=== PATIENT | female | born 1945 | race Caucasian/White ===

== ENCOUNTER 2019-11-04 08:55 | Emergency (ER) | payer MEDICARE, OTHER, SELFPAY ==
--- NOTE | 2019-11-04 09:07 | ED_ITS ---
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 but those have not changed at all she has no other focal symptoms Onset (ago): hour(s) Location: head and neck Radiation: non-radiation Severity: moderate Quality: burning Pain Consistency: constant Relieving factors: none Exacerbating factors: none Associated symptoms: Deny chest pain, confusion, cough, diaphoresis, decreased appetite, dyspnea, fevers/chills, headache(s), malaise, nausea, rash, palpitations, seizures, short of breath, syncope, vomiting, weakness or other Treatments prior to arrival: none Review of Systems Const: Denies: malaise or diaphoresis ENMT: Denies: throat pain, ear or mastoid pain, nasal discharge or nasal congestion Card: Denies: chest pain, palpitations or syncope Resp: Denies: dyspnea GI: Denies: nausea or vomiting : Denies: flank pain, difficulty voiding, dysuria, urinary frequency or urinary urgency Skin/Breast: Denies: rash Neuro: Denies: headache(s) or confusion PFS ED PFSH: Medical History (Updated 11/04/19 @ 13:36 by Lobo Palacios DO) History of breast cancer Surgical History (Updated 11/04/19 @ 13:36 by Lobo Palacios DO) H/O breast reconstruction H/O gastric bypass H/O knee surgery H/O mastectomy H/O neck surgery H/O: hysterectomy Social History Smoking and tobacco status: never smoked Alcohol intake: never Physical Exam Const: COMMON NORMALS: no acute distress GENERAL APPEARANCE: cooperative and comfortable ORIENTATION/CONSCIOUSNESS: Yes awake, Yes oriented to person, Yes oriented to place and Yes oriented to time HENMT: COMMON NORMALS: normocephalic, atraumatic and hearing grossly normal bilaterally HEAD & SCALP: normocephalic and atraumatic Eye: COMMON NORMALS: Equal, round and reactive pupils present, EOMs intact bilaterally, conjunctivae normal and no scleral icterus CONJUNCTIVA: Yes conjunctivae normal PUPIL: Yes Equal, round and reactive pupils present Neck/C-Spine: COMMON NORMALS: full ROM, no lymphadenopathy, supple and no JVD Lymph: LYMPHATIC: no lymphadenopathy noted and no lymphedema noted Resp: COMMON NORMALS: normal respiratory effort, No retractions, No use of accessory muscles and clear to auscultation bilaterally AUSCULTATION: clear to auscultation bilaterally Cardio: COMMON NORMALS: no JVD, regular rate, regular rhythm and No murmurs present (Cardio) RATE: regular rate RHYTHM: regular rhythm GI: COMMON NORMALS: Soft to palpation and No hepatosplenomegaly present AUS CULTATION: Yes normoactive bowel sounds PALPATION: Yes Soft to palpation, No Tenderness to palpation present (GI), No Guarding due to palpation present (GI) and Yes No hepatosplenomegaly present Extremity: COMMON NORMALS: normal to inspection, capillary refill normal, no clubbing, cyanosis or edema, no calf tenderness and no pedal edema Neuro: SENSORIUM/ORIENTATION: Yes oriented to person, Yes oriented to place and Yes oriented to time Skin: COMMON NORMALS: no rashes or lesions noted GENERAL SKIN EXAM: no rashes or lesions noted Course Vital Signs: Vital signs: Vital Signs Temperature 98.3 F 11/04/19 09:11 Pulse Rate 64 11/04/19 11:53 Respiratory Rate 16 11/04/19 11:53 Blood Pressure 112/60 11/04/19 11:53 Pulse Oximetry 96 11/04/19 11:53 MDM - General Adult MDM Narrative: Medical decision making narrative: Headache is improved we will go ahead and discharge home I think a large portion of her headache is from 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 that is been present for some time if persists follow-up with PCP for reevaluation by MRI Discharge Plan Discharge Patient Disposition: Home Clinical Impression: Tension headache Condition: Stable Prescriptions: New tizanidine 4 mg capsule 4 mg PO Q6H PRN (Reason: muscle spasticity) Qty: 30 RF: 0 No Action Euthyrox 137 mcg tablet 137 mcg PO QAM RF: 0 citalopram 40 mg tablet 40 mg PO DAILY RF: 0 lisinopril 20 mg tablet 20 mg PO BID RF: 0 Aspir-81 81 mg Tablet,Delayed Release (Dr/Ec) 162 mg PO DAILY RF: 0 pantoprazole 40 mg tablet,delayed release (DR/EC) 40 mg PO DAILY RF: 0 cyanocobalamin (vitamin B-12) 1,000 mcg/mL solution 1,000 mcg IM Q30D RF: 0 Lidoderm 5 % Adhesive Patch,Medicated See Rx Instructions .ROUTE .COMPLEX RF: 0 montelukast 10 mg tablet 10 mg PO BEDTIME RF: 0 furosemide 20 mg tablet 20 mg PO DAILY PRN (Reason: Edema) RF: 0 oxycodone 30 mg tablet 30 mg PO Q4H PRN (Reason: Pain) RF: 0 albuterol sulfate 90 mcg/actuation HFA aerosol inhaler 2 puff INHALATION Q6H PRN (Reason: Shortness Of Breath) RF: 0 carbidopa-levodopa 25-100 mg tablet 1 tab PO BEDTIME RF: 0 topiramate 100 mg tablet 100 mg PO BID RF: 0 fluticasone propionate 50 mcg/actuation spray,suspension 2 spray INTRANASAL DAILY PRN (Reason: unknown) RF: 0 Vitron-C 65 mg iron- 125 mg Tablet,Delayed Release (Dr/Ec) 1 tab PO DAILY RF: 0 potassium chloride 20 mEq Tablet Extended Release 20 meq PO DAILY RF: 0 Movantik 25 mg tablet 25 mg PO QAM RF: 0 Discharge Orders: Discharge Order (Routine); Ordered 11/04/19 Ordered By: Lobo Palacios Referrals: Sheri Duvall FNP [Primary Care Provider] - Discharge Diet: Usual diet Discharge Activity: Increase activity as tolerated Activity Restrictions/Additional Instructions: follow up with your primary care physician Discharge Date/Time: 11/04/19 11:55 Coding Level of Care Code ED [employer] for Jennyg Fwd Exam Comprehensive
[2019-11-04 09:11] VITALS: BP 100/60; PULSE 76; RESP 18; TEMP 36.8; O2SAT 96; BMI 25.9
--- NOTE | 2019-11-04 09:27 | CT_ITS ---
WS: [id number] CT HEAD NONCONTRAST HISTORY: headache/hx of breast CA TECHNIQUE: Contiguous axial imaging performed through the brain in 2.5 mm imaging. Bone and soft tiss ue windows. Sagittal and coronal reformats reviewed. All CT scans at [facility] use at le ast one of these dose optimization techniques: automated exposure control; mA and/or kV adjustment pe r patient size (includes targeted exams where dose is matched to clinical indication); or iterative r econstruction. DLP: 745.35 mGy.cm COMPARISON: 06/18/2015 No acute intracranial hemorrhage, midline shift or mass effect. No atrophy or prior infarcts or herniation. Mild chronic microvascular ischemic disease. No sulcal e ffacement. Ventricles: Normal size with no hydrocephalus. Paranasal sinuses: As visualized are clear. Mastoid air cells: Well pneumatized. Calvarium and scalp: Skull is intact with no soft tissue edema or swelling. CT/CT head wo con* [id number] IMPRESSION: No acute intracranial hemorrhage. Mild atrophy and chronic ischemic disease0.
--- NOTE | 2019-11-04 09:27 | CT_ITS ---
WS: [id number] CT CERVICAL SPINE HISTORY: neck pain TECHNIQUE: Contiguous 2.5 mm axial imaging performed through the entire cervical spine. Sagittal and coronal reformats also performed. All CT scans at [facility] use at least one of these do se optimization techniques: automated exposure control; mA and/or kV adjustment per patient size (inc ludes targeted exams where dose is matched to clinical indication); or iterative reconstruction. DLP: 393.21 mGy.cm COMPARISON: Cervical spine 10/16/2005. Straightening and slight reversal normal cervical lordosis. C4 anterolisthesis by 2 mm. Complete anky losis across the C5-6 disc space. There is a small osteophyte projecting posteriorly from the C5-6 di sc space towards the ventral thecal sac without encroachment. Very mild loss of height involving T1 s uperior endplate is stable. Craniocervical junction is normal. No fracture or lytic/sclerotic bone le sions. C2-C3: Central calcification from a small disc protrusion. No stenosis. C3-C4: Normal. C4-C5: Normal. C5-C6: Mild osteophytic ridging and small central osteophyte. No stenosis. C6-C7: Mild osteophytic ridging encroaching upon the ventral thecal sac. Mild central and bilateral f oraminal stenosis. C7-T1: Normal. Soft tissues are normal. Lung apices are clear. CT/CT cervical spin wo con* [id number] IMPRESSION: 1. No acute cervical spine fracture. 2. Stable ankylosis at C5-6 with reversal the normal cervical lordosis. No int erval change since 2005. 3. Mild central and bilateral foraminal stenosis at C6-7 is stable.
--- NOTE | 2019-11-04 09:36 | PC.NURSE ---
pt to CT by stretcher with tech
[2019-11-04 09:57] VITALS: O2SAT 96
[2019-11-04] MEDS: morphine 4 mg/mL SDV 1 mL IVP ×2 (10:38→11:23)
[2019-11-04] MEDS: ondansetron 2 mg/ML SDV 2 mL 4 MG IVP (10:38)
[2019-11-04 10:42] VITALS: PULSE 68; O2SAT 96
[2019-11-04 11:25] VITALS: BP 107/51; PULSE 66; O2SAT 97
[2019-11-04 11:53] VITALS: BP 112/60; PULSE 64; RESP 16; O2SAT 96
== END 2019-11-04 11:55 | disposition home or self-care (01) ==
PROVIDERS: Emergency Provider Family Medicine; PCP Nurse Practitioner Family
DX: G44.209 Tension-type headache, unspecified, not intractable (principal); Z79.82 Long term (current) use of aspirin; Z85.3 Personal history of malignant neoplasm of breast
CPT/HCPCS: 12345; 70450; 72125; 96374; 96375; 96376; 99282; 99283; J2270; J2405

== ENCOUNTER → 2020-03-21 10:27 | Outpatient (BNVA) | payer MEDICARE, OTHER, SELFPAY | PROVIDERS: PCP Nurse Practitioner Family; Visit Provider Internal Medicine Gastroenterology | DX: Z20.828 Contact with and (suspected) exposure to other viral communicable diseases (principal); Z01.812 Encounter for preprocedural laboratory examination | CPT/HCPCS: 87635 ==

== ENCOUNTER → 2020-04-21 12:29 | Outpatient (BNVA) | payer MEDICARE, OTHER, SELFPAY | PROVIDERS: PCP Nurse Practitioner Family; Visit Provider Nurse Practitioner Family | DX: S99.929A Unspecified injury of unspecified foot, initial encounter (principal); X58.XXXA Exposure to other specified factors, initial encounter | CPT/HCPCS: 73630 ==

== ENCOUNTER → 2020-04-26 10:56 | Outpatient (BNVA) | payer MEDICARE, OTHER, SELFPAY | PROVIDERS: Referring Provider Nurse Practitioner Family; Visit Provider Orthopaedic Surgery | DX: S92.352A Displaced fracture of fifth metatarsal bone, left foot, initial encounter for closed fracture (principal) | CPT/HCPCS: 73630 ==

== ENCOUNTER → 2020-05-26 08:44 | Outpatient (BNVA) | payer MEDICARE, OTHER, SELFPAY | PROVIDERS: Visit Provider Orthopaedic Surgery | DX: S92.352D Displaced fracture of fifth metatarsal bone, left foot, subsequent encounter for fracture with routine healing (principal); S92.309D Fracture of unspecified metatarsal bone(s), unspecified foot, subsequent encounter for fracture with routine healing; W01.10XD Fall on same level from slipping, tripping and stumbling with subsequent striking against unspecified object, subsequent encounter | CPT/HCPCS: 73630 ==

== ENCOUNTER → 2020-06-28 08:56 | Outpatient (BNVA) | payer MEDICARE, OTHER, SELFPAY | PROVIDERS: Visit Provider Orthopaedic Surgery | DX: S92.352A Displaced fracture of fifth metatarsal bone, left foot, initial encounter for closed fracture (principal) | CPT/HCPCS: 73630 ==

== ENCOUNTER → 2020-07-26 08:19 | Outpatient (BNVA) | payer MEDICARE, OTHER, SELFPAY | PROVIDERS: Visit Provider Orthopaedic Surgery | DX: S92.352A Displaced fracture of fifth metatarsal bone, left foot, initial encounter for closed fracture (principal); S92.309A Fracture of unspecified metatarsal bone(s), unspecified foot, initial encounter for closed fracture; T14.8XXA Other injury of unspecified body region, initial encounter; X58.XXXA Exposure to other specified factors, initial encounter | CPT/HCPCS: 73630 ==

== ENCOUNTER 2020-08-08 15:00 | Outpatient (CLI) | payer MEDICARE, OTHER, SELFPAY ==
--- NOTE | 2020-08-08 15:30 | CT_ITS ---
WS: [id number] NONCONTRAST CT LEFT FOOT TECHNIQUE: Noncontrast CT left foot with coronal and sagittal reformatted images. CLINICAL INFORMATION: S92.309A - Fracture of unspecified metatarsal bone(s), un... COMPARISON: July 26, 2020 DLP: 699.[address] scans at [facility] use at least one of these dose optimization techniques: automat ed exposure control; mA and/or kV adjustment per patient size (includes targeted exams where dose is matched to clinical indication); or iterative reconstruction. FINDINGS: Osteopenia. Again seen is the nondisplaced healing fracture involving the mid to distal fifth metatar felipe shaft. Associated callus formation. Fifth metatarsal base is normal in appearance. Metatarsals ar e otherwise normal in appearance. Degenerative arthritis TMT joints. Degenerative arthritis involving the IP joints. Normal navicular. Normal talonavicular articulation. Normal talocalcaneal articulation. Plantar calcaneal spurring. Achilles enthesophyte. Moderate degene rative arthritis at the ankle mortise. Normal medial and lateral malleolus. Normal talus. No other vi sualized fractures. CT/CT foot LT wo con* [id number] IMPRESSION: 1. Again seen is the nondisplaced healing fracture involving the mid to distal fifth metatarsal shaft. Associated callus formation. 2. Degenerative arthritis as described above. 3. No other suspicious findings.
== END 2020-08-08 15:01 | disposition home or self-care (01) ==
PROVIDERS: Visit Provider Orthopaedic Surgery
DX: S92.355A Nondisplaced fracture of fifth metatarsal bone, left foot, initial encounter for closed fracture (principal); X58.XXXA Exposure to other specified factors, initial encounter; M19.072 Primary osteoarthritis, left ankle and foot
CPT/HCPCS: 73700

== ENCOUNTER 2020-09-23 12:30 | Emergency (ER) | payer MEDICARE, OTHER, SELFPAY ==
[2020-09-23 12:39] VITALS: BP 100/58; PULSE 105; RESP 16; TEMP 36.5; O2SAT 96; BMI 22.8
--- NOTE | 2020-09-23 13:00 | XR_ITS ---
WS: [id number] Portable AP upright chest, 09/23/2020 Clinical Data: Chest pain Comparison: Portable chest, 10/15/2005. Findings: No nodules, masses or effusions are seen. The heart is normal. The pulmonary vascularity is not increased. No pneumonia or pneumothorax is seen. Minimal atelectasis over the surface of both di aphragms is seen. The right diaphragm is elevated. The aortic arch and descending aorta show tortuosi ty. Monitor leads are on the chest wall. XR/XR chest 1V portable [id number] Impression: 1. Atherosclerosis. 2. Minimal bibasilar atelectasis.
--- NOTE | 2020-09-23 13:00 | ECG_ITS ---
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 Measurements Intervals [place] Rate: 104 P: 49 [place]: 160 QRS: 24 QRSD: 82 T: 58 QT: 316 QTc: 417 Interpretive Statements SINUS TACHYCARDIA NONSPECIFIC T-WAVE ABNORMALITY ABNORMAL RHYTHM ECG WARNING: DATA QUALITY MAY AFFECT INTERPRETATION INTERPRETATION BASED ON A DEFAULT AGE OF 40 YEARS No previous ECG available for comparison Electronically Signed On 09-23-2020 14:56:22 CDT by Ruperto Coy M.D. [id number] f
--- NOTE | 2020-09-23 13:02 | ED_ITS ---
HPI - Chest Pain General: Chief Complaint: Chest Pain Stated Complaint: CP Time Seen by Provider: 09/23/20 12:51 History of Present Illness: HPI narrative: 75-year-old female comes in complaining of chest pain. Is worse when she stands up she gets very nauseous she has had bilateral upper chest pain for the last 2 days she denies any fever shortness of breath or cough. MD complaint: chest pain Pertinent past history: other (COPD) Onset (ago): day(s) Timing of current episode: episodic and increasing Prior episodes: No Onset: during rest Pain location: left chest Pain radiation: none Severity: mild Quality: tightness and heaviness Relieving factors: rest Exacerbating factors: nothing Associated symptoms: Deny abdominal pain, diaphoresis, dyspnea, fever(s), leg edema, nausea, palpitations, sense of impending doom, syncope or vomiting Review of Systems Const: Denies: fever(s) or diaphoresis ENMT: Denies: throat pain, ear or mastoid pain, nasal discharge or nasal congestion Card: Denies: palpitations or syncope Resp: Denies: dyspnea GI: Denies: abdominal pain, nausea or vomiting : Denies: flank pain, difficulty voiding, dysuria, urinary frequency or urinary urgency Skin/Breast: Denies: rash or pruritus PFSH ED PFSH: Medical History History of breast cancer Surgical History H/O breast reconstruction H/O gastric bypass H/O knee surgery H/O mastectomy H/O neck surgery H/O: hysterectomy Social History Smoking and tobacco status: never smoked Alcohol intake: never Physical Exam Const: COMMON NORMALS: no acute distress GENERAL APPEARANCE: cooperative and comfortable ORIENTATION/CONSCIOUSNESS: Yes awake, Yes oriented to person, Yes oriented to place and Yes oriented to time HENMT: COMMON NORMALS: normocephalic, atraumatic and hearing grossly normal bilaterally HEAD & SCALP: normocephalic and atraumatic Neck/C-Spine: COMMON NORMALS: no JVD Lymph: LYMPHATIC: no lymphadenopathy noted and no lymphedema noted Resp: COMMON NORMALS: normal respiratory effort, No retractions, No use of accessory muscles and clear to auscultation bilaterally AUSCULTATION: clear to auscultation bilaterally Cardio: COMMON NORMALS: no JVD, regular rate, regular rhythm and No murmurs present (Cardio) RATE: regular rate RHYTHM: regular rhythm GI: COMMON NORMALS: Soft to palpation and No hepatosplenomegaly present AUSCULTATION: Yes normoactive bowel sounds PALPATION: Yes Soft to palpation, No Tenderness to palpation present (GI), No Guarding due to palpation present (GI) and Yes No hepatosplenomegaly present Extremity: COMMON NORMALS: normal to inspection, capillary refill normal, no clubbing, cyanosis or edema, no calf tenderness and no pedal edema Neuro: SENSORIUM/ORIENTATION: Yes oriented to person, Yes oriented to place and Yes oriented to time Skin: COMMON NORMALS: no rashes or lesions noted GENERAL SKIN EXAM: no rashes or lesions noted Course Vital Signs: Vital signs: Vital Signs Temperature 97.7 F 09/23/20 12:39 Pulse Rate 95 09/23/20 18:11 Respiratory Rate 20 H 09/23/20 18:11 Blood Pressure 103/52 09/23/20 18:11 Pulse Oximetry 94 09/23/20 18:11 MDM - Chest Pain MDM Narrative: Medical decision making narrative: Patient is symptom-free at this time troponins EKG unremarkable. Follow-up with outpatient echocardiogram for the pericardial effusion as well as a Lexiscan sestamibi stress test see cardiology after that return if has further problems. Lab Data: Labs: Lab Results 09/23/20 09/23/20 09/23/20 Range/Units 14:01 14:01 14:01 WBC 11.8 H (4.0-10.0) 10^3/ uL RBC 4.05 L (4.1-5.3) 10^6/u L Hgb 12.3 (11.5-15.3) g/dL Hct 39.2 (37.0-47.0) % MCV 96.8 (81-99) fL MCH 30.4 (28.0-34.0) pg MCHC 31.4 (30.0-36.0) g/dL RDW 13.4 (12.1-15.1) % Plt Count 197 (130-400) 10^3/c mm MPV 11.7 H (7.4-10.4) fL Neut % (Auto) 82.6 % Lymph % (Auto) 7.5 % [place] % (Auto) 8.9 % Eos % (Auto) 0.1 % Baso % (Auto) 0.2 % Neut # (Auto) 9.72 H (1.8-7.7) 10^3/u L Lymph # (Auto) 0.9 (0.8-4.8) 10^3/u L [place] # (Auto) 1.1 H (0.2-0.9) 10^3/u L Eos # (Auto) 0.0 (0.0-0.8) 10^3/u L Baso # (Auto) 0.0 (0.0-0.1) 10^3/u L Nucleated RBC % (a uto) 0 % Nucleated RBCs # 0.0 /100WBC D-Dimer 2.02 H (0-0.59) ug/mIFE U Sodium 130 L (136-145) mmol/L Potassium 5.0 (3.5-5.1) mmol/L Chloride 99 (98-107) mmol/L Carbon Dioxide 17 L (22-29) mmol/L Anion Gap 19.0 (5-19) BUN 24 H (8-23) mg/dL Creatinine 1.9 H (0.5-0.9) mg/dL GFR Calculation Not Reportable Glucose 141 H (65-115) mg/dL Calculated Osmolal ity 276 L (285-295) mOsm/k g Calcium 8.4 L (8.5-10.5) mg/dL Total Bilirubin 0.5 (0.15-1.2) mg/dL AST 17 (0-32) U/L ALT 15 (0-33) U/L Alkaline Phosphata se 93 (35-105) IU/L Troponin T Baselin e (0-10) ng/L Troponin T 120 Min julia (0-10) ng/L Delta Troponin T (0-10) ABS# Total Protein 6.6 (6.6-8.7) g/dL Albumin 3.6 (3.5-5.2) g/dL Globulin 3.0 (1.3-4.6) g/dL 09/23/20 09/23/20 Range/Units 14:01 16:26 WBC (4.0-10.0) 10^3/ uL RBC (4.1-5.3) 10^6/u L Hgb (11.5-15.3) g/dL Hct (37.0-47.0) % MCV (81-99) fL MCH (28.0-34.0) pg MCHC (30.0-36.0) g/dL RDW (12.1-15.1) % Plt Count (130-400) 10^3/c mm MPV (7.4-10.4) fL Neut % (Auto) % Lymph % (Auto) % [place] % (Auto) % Eos % (Auto) % Baso % (Auto) % Neut # (Auto) (1.8-7.7) 10^3/u L Lymph # (Auto) (0.8-4.8) 10^3/u L [place] # (Auto) (0.2-0.9) 10^3/u L Eos # (Auto) (0.0-0.8) 10^3/u L Baso # (Auto) (0.0-0.1) 10^3/u L Nucleated RBC % (a uto) % Nucleated RBCs # /100WBC D-Dimer (0-0.59) ug/mIFE U Sodium (136-145) mmol/L Potassium (3.5-5.1) mmol/L Chloride (98-107) mmol/L Carbon Dioxide (22-29) mmol/L Anion Gap (5-19) BUN (8-23) mg/dL Creatinine (0.5-0.9) mg/dL GFR Calculation Glucose (65-115) mg/dL Calculated Osmolal ity (285-295) mOsm/k g Calcium (8.5-10.5) mg/dL Total Bilirubin (0.15-1.2) mg/dL AST (0-32) U/L ALT (0-33) U/L Alkaline Phosphata se (35-105) IU/L Troponin T Baselin e 25 H (0-10) ng/L Troponin T 120 Min julia 23.22 H (0-10) ng/L Delta Troponin T -1.78 L (0-10) ABS# Total Protein (6.6-8.7) g/dL Albumin (3.5-5.2) g/dL Globulin (1.3-4.6) g/dL Discharge Plan Discharge Patient Disposition: Home Clinical Impression: Atypical chest pain, Pericardial effusion Condition: Stable Prescriptions: No Action citalopram 40 mg tablet 40 mg PO DAILY RF: 0 lisinopril 20 mg tablet 20 mg PO BID RF: 0 aspirin [Aspir-81] 81 mg Tablet,Delayed Release (Dr/Ec) 162 mg PO DAILY RF: 0 pantoprazole 40 mg tablet,delayed release (DR/EC) 40 mg PO DAILY RF: 0 cyanocobalamin (vitamin B-12) 1,000 mcg/mL solution 1,000 mcg IM Q30D RF: 0 lidocaine [Lidoderm] 5 % Adhesive Patch,Medicated See Rx Instructions .ROUTE .COMPLEX RF: 0 montelukast 10 mg tablet 10 mg PO BEDTIME RF: 0 furosemide 20 mg tablet 20 mg PO DAILY PRN (Reason: Edema) RF: 0 oxycodone 30 mg tablet 30 mg PO Q4H PRN (Reason: Pain) RF: 0 albuterol sulfate 90 mcg/actuation HFA aerosol inhaler 2 puff INHALATION Q6H PRN (Reason: Shortness Of Breath) RF: 0 topiramate 100 mg tablet 100 mg PO BID RF: 0 fluticasone propionate 50 mcg/actuation spray,suspension 2 spray INTRANASAL DAILY PRN (Reason: unknown) RF: 0 Vitron-C 65 mg iron- 125 mg Tablet,Delayed Release (Dr/Ec) 1 tab PO DAILY RF: 0 potassium chloride 20 mEq Tablet Extended Release 20 meq PO DAILY RF: 0 Movantik 25 mg tablet 25 mg PO DAILY PRN (Reason: Constipation) RF: 0 tizanidine 4 mg capsule 4 mg PO Q6H PRN (Reason: muscle spasticity) Qty: 30 RF: 0 Euthyrox 100 mcg tablet 100 mcg PO DAILY RF: 0 Vitamin D3 25 mcg (1,000 unit) Capsule 25 mcg PO DAILY RF: 0 alendronate 70 mg Tablet 70 mg PO Q7D RF: 0 Discharge Orders: Discharge ED (Routine); Ordered 09/23/20 Ordered By: Lobo Palacios Patient Instructions: Opioid Safety Activity Restrictions/Additional Instructions: Management will call to set up an echocardiogram and a Lexiscan sestamibi stress test. They will also help you establish with a PCP. You should recheck your kidney function early next week. If you have worsening problems return to the emergency room. Coding Level of Care Code ED [employer] for Clarence Fwd Exam Comprehensive
[2020-09-23 14:03] VITALS: BP 87/52; PULSE 92; RESP 18; O2SAT 92
[2020-09-23 14:07] VITALS: BP 91/56; PULSE 90; RESP 18
[2020-09-23 14:07] LABS: Basophils % 0.2 %; Eosinophils % 0.1 %; Hematocrit 39.2 % (37.0-47.0); Hemoglobin 12.3 g/dL (11.5-15.3); Lymphocytes # 0.9 10^3/uL (0.8-4.8); Lymphocytes % 7.5 %; Mean Corpuscular HGB Conc 31.4 g/dL (30.0-36.0); Mean Corpuscular Hemoglobin 30.4 pg (28.0-34.0); Mean Corpuscular Volume 96.8 fL (81-99); Mean Platelet Volume 11.7 fL (7.4-10.4); Monocytes # 1.1 10^3/uL (0.2-0.9); Monocytes % 8.9 %; Neutrophils # 9.72 10^3/uL (1.8-7.7); Neutrophils % 82.6 %; Nucleated Red Blood Cells % 0 %; Platelet Count 197 10^3/cmm (130-400); Red Blood Count 4.05 10^6/uL (4.1-5.3); Red Cell Distribution Width 13.4 % (12.1-15.1); White Blood Count 11.8 10^3/uL (4.0-10.0)
[2020-09-23 14:28] LABS: D Dimer 2.02 ug/mIFEU (0-0.59)
[2020-09-23 14:43] LABS: Troponin(5th) Baseline 25 ng/L (0-10)
[2020-09-23 14:45] LABS: Alanine Aminotransferase 15 U/L (0-33); Albumin Level 3.6 g/dL (3.5-5.2); Alkaline Phosphatase 93 IU/L (35-105); Aspartate Amino Transferase 17 U/L (0-32); Blood Urea Nitrogen 24 mg/dL (8-23); Calcium 8.4 mg/dL (8.5-10.5); Carbon Dioxide 17 mmol/L (22-29); Chloride 99 mmol/L (98-107); Glucose 141 mg/dL (65-115); Osmolality Calculated 276 mOsm/kg (285-295); Sodium 130 mmol/L (136-145); Total Bilirubin 0.5 mg/dL (0.15-1.2); Total Protein 6.6 g/dL (6.6-8.7)
--- NOTE | 2020-09-23 15:00 | ECG_ITS ---
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 Measurements Intervals [place] Rate: 85 P: 62 [place]: 169 QRS: 38 QRSD: 74 T: 91 QT: 316 QTc: 377 Interpretive Statements SINUS RHYTHM NONSPECIFIC T-WAVE ABNORMALITY Compared to ECG 09/23/2020 12:45:47 Sinus tachycardia no longer present T-wave abnormality still present Electronically Signed On 09-25-2020 18:42:33 CDT by Honey Pratt M.D. [email or web address]/[id number]
[2020-09-23 15:21] VITALS: BP 96/58; PULSE 91; RESP 16; O2SAT 95
[2020-09-23 16:44] VITALS: PULSE 90; RESP 18; O2SAT 95
--- NOTE | 2020-09-23 16:44 | CTR_ITS ---
PROCEDURE INFORMATION: Exam: CTA Chest With Contrast Exam date and time: 09/23/2020 4:44 PM Age: 75 years old Clinical indication: Pain; Prior surgery; Surgery date: 6+ months; Surgery type: Mast w recon; Patient HX: C/O dickson upper cp x 2 days w elev d-dimer; Additional info: Elevated d dimer TECHNIQUE: Imaging protocol: Computed tomographic angiography of the chest with contrast. 3D rendering (Not supervised by radiologist): MIP and/or 3D reconstructed images were created by the technologist. Radiation optimization: All CT scans at this facility use at least one of these dose optimization techniques: automated exposure control; mA and/or kV adjustment per patient size (includes targeted exams where dose is matched to clinical indication); or iterative reconstruction. Contrast material: VISI 320; Contrast volume: 62 ml; Contrast route: INTRAVENOUS (IV); COMPARISON: CR XR chest 1V portable [id number] 09/23/2020 12:59 PM RADIATION DOSE METRICS: Total DLP (mGy-cm): 523.75 FINDINGS: Pulmonary arteries: Normal. No pulmonary emboli. Aorta: Unremarkable. No aortic aneurysm. No aortic dissection. Lungs: Curvilinear scarring or atelectasis at the right middle lobe and lingula. No focal consolidation. Calcified granuloma in the right lower lobe. Pleural spaces: Trace pleural effusions. Heart: Moderate to large volume pericardial effusion. No cardiomegaly. Lymph nodes: Unremarkable. No enlarged lymph nodes. Gallbladder and bile ducts: Mildly distended gallbladder without calcified gallstones or gallbladder wall thickening. Bones/joints: Generalized osseous demineralization. No acute fracture. Soft tissues: Unremarkable. CT/CT angio chest PE protcl [id number] IMPRESSION: 1. Negative for pulmonary embolism. 2. Moderate to large volume pericardial effusion. Radiation Dose CTDIVOL = (mGy): DLP = 523.75 (mGy-cm)
[2020-09-23 16:52] LABS: Troponin 5 2HR 23.22 ng/L (0-10)
[2020-09-23 16:56] LABS: Troponin 5 2HR Delta -1.78 ABS# (0-10)
[2020-09-23] MEDS: sodium chloride 0.9% 1,000 ML 999 ML IV (17:11)
[2020-09-23] MEDS: oxyCODONE IR 30 mg Tablet PO (17:12)
[2020-09-23] MEDS: iodixanol 320 mg/mL 100mL Btl IV (17:51)
[2020-09-23 18:11] VITALS: BP 103/52; PULSE 95; RESP 20; O2SAT 94
--- NOTE | 2020-09-27 11:12 | DCPLANNER ---
recycling operations manager had message to schedule a follow up appointment for patient for an echo cardiogram, pericardial effusion and stress test. recycling operations manager called patient on phone number [phone], left voicemail on 09.26.20. recycling operations manager attempted to call patient again on 09.27.20 to speak with patient about getting a primary care. recycling operations manager still unable to speak with patient, and unable to leave a voicemail at this time.
== END 2020-09-23 18:54 | disposition home or self-care (01) ==
PROVIDERS: Emergency Provider Family Medicine
DX: I31.3 Pericardial effusion (noninflammatory) (principal); J44.9 Chronic obstructive pulmonary disease, unspecified
CPT/HCPCS: 71045; 71275; 80053; 84484; 85025; 85378; 93005; 96360; 99284; J7030; Q9967

== ENCOUNTER 2020-09-28 15:22 | Outpatient (CLI) | payer MEDICARE, OTHER, SELFPAY ==
--- NOTE | 2020-09-28 | USCV_ITS ---
Mary Kumar Age: 75 Gender: F : 1945 Exam Date: 09/28/2020 16:04 Ordering Phys: Honey Pratt MD ([email or web address]) Technologist: Mauro Silveira Exam Location: [facility] [place] Indication: PERICARD EFFUSION BP: 110 / 60 HR: 57 Rhythm: Sinus Technical Quality: Adequate MEASUREMENTS (Male / Female) Normal Values 2D ECHO LV Diastolic Diameter PLAX 3.3 cm 4.2 - 5.9 / 3.9 - 5.3 cm LV Systolic Diameter PLAX 2.5 cm IVS Diastolic Thickness 0.8 cm 0.6 - 1.0 / 0.6 - 0.9 cm IVS Systolic Thickness 1.4 cm LVPW Diastolic Thickness 1.1 cm 0.6 - 1.0 / 0.6 - 0.9 cm LVPW Systolic Thickness 1.2 cm LVOT Diameter 2.0 cm LV Ejection Fraction 2D Teich 41.9 % LV Ejection Fraction MOD 2C 49.9 % LV Ejection Fraction 2C AL 49.8 % LA Width 3.7 cm LA Height 4.1 cm Aorta at Sinotubular Diameter 2.4 cm DOPPLER AV Peak Velocity 137.0 cm/s LVOT Peak Velocity 100.0 cm/s AV Area Cont Eq vti 2.2 cm squared AV Area Cont Eq pk 2.3 cm squared MV Area PHT 5.0 cm squared Mitral E to A Ratio 0.9 MV E' Velocity 44.5 cm/s Mitral E to MV E' Ratio 8.8 Mitral E to LV E' Lateral Ratio 8.6 Mitral E to LV E' Septal Ratio 9.3 TR Peak Velocity 267.7 cm/s TR Peak Gradient 28.7 mmHg TV Peak E Velocity 80.0 cm/s Right Atrial Pressure 3.0 mmHg Pulmonary Artery Systolic Pressu 31.7 mmHg FINDINGS Left Ventricle Normal left ventricular size, systolic function and wall thickness, with no regional wall motion abnormalities. Left ventricular ejection fraction is estimated at 55-60 %. Normal diastolic function. Right Ventricle Normal right ventricular size and systolic function. Right ventricular systolic pressure 31.7 mmHg. Right Atrium Normal right atrial size. Left Atrium Normal left atrial size. Mitral Valve Mildly thickened mitral valve. No mitral valve stenosis. Mild mitral valve regurgitation. Aortic Valve Aortic valve not well visualized. No aortic valve stenosis. No aortic valve regurgitation. Tricuspid Valve Structurally normal tricuspid valve. Pulmonic Valve Pulmonic valve not well visualized. Pericardium Probably trivial to small pericardial effusion. No evidence of hemodynamic compromise. Aorta Normal size aortic root and proximal ascending aorta. CONCLUSIONS 1. This is a technically difficult study with limited subcostal views. 2. Normal left ventricular size, systolic function and wall thickness, with no regional wall motion abnormalities. Left ventricular ejection fraction is estimated at 55-60 %. Normal diastolic function. 3. Normal right ventricular size and systolic function. 4. Pulmonary artery pressure estimated at 32 mmHg. 5. Probably trivial to small pericardial effusion. No evidence of hemodynamic compromise based on this study. 6. No prior similar studies to compare. Honey Pratt MD (Electronically Signed) Final Date: 29 September 2020 16:40 S
== END 2020-09-28 15:23 | disposition home or self-care (01) ==
PROVIDERS: Visit Provider Internal Medicine Cardiovascular Disease
DX: I31.3 Pericardial effusion (noninflammatory) (principal); R07.89 Other chest pain; S92.309A Fracture of unspecified metatarsal bone(s), unspecified foot, initial encounter for closed fracture; X58.XXXA Exposure to other specified factors, initial encounter
CPT/HCPCS: 80053; 84443; 85025; 85651; 86038; 86141; 93306

== ENCOUNTER 2021-06-18 08:18 | Emergency (ER) | payer MEDICARE, OTHER, SELFPAY ==
[2021-06-18 08:24] VITALS: BP 124/76; PULSE 79; RESP 16; TEMP 36.8; O2SAT 99; BMI 25.8
--- NOTE | 2021-06-18 08:38 | ECG_ITS ---
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 Measurements Intervals [place] Rate: 79 P: 47 SC: 160 QRS: 7 QRSD: 86 T: 72 QT: 341 QTc: 392 Interpretive Statements SINUS RHYTHM ST DEVIATION AND MODERATE T-WAVE ABNORMALITY, CONSIDER ANTEROLATERAL ISCHEMIA [-0.1+ mV T-WAVE IN V3-V6] Compared to ECG 09/23/2020 16:20:56 Possible ischemia now present T-wave abnormality still present Electronically Signed On 06-18-2021 16:09:20 CDT by Honey Pratt M.D. [id number]
--- NOTE | 2021-06-18 08:38 | XRR_ITS ---
PROCEDURE INFORMATION: Exam: XR Chest Exam date and time: 06/18/2021 8:43 AM Age: 76 years old Clinical indication: Cough TECHNIQUE: Imaging protocol: XR of the chest. Views: 1 view. Total images: 1 COMPARISON: CR XR chest 1V portable [id number] 09/23/2020 12:59 PM FINDINGS: Lungs: Trace atelectasis or scar noted in the right lung base. Pleural spaces: Unremarkable. No pleural effusion. No pneumothorax. Heart/Mediastinum: Unremarkable. No cardiomegaly. Diaphragm: There is nonspecific elevation of the right hemidiaphragm. Bones/joints: Osseous structures are unchanged from the prior exam. XR/XR chest 1V portable [id number] IMPRESSION: Trace atelectasis or scar noted in the right lung base.
--- NOTE | 2021-06-18 08:40 | W.ED.GENADLT ---
HPI - General Adult General: Chief complaint: Headache Stated complaint: Body aches, n/v, fevor, headache Time Seen by Provider: 06/18/21 08:21 History of Present Illness: Patient presents here today with headache sinus pressure and sore throat and has been vomiting last couple days. Patient says she is felt bad for the last 2 weeks and just progressively got worse. Said she is able to eat without difficulty able to keep fluids down feels like she get ready started having diarrhea. Says she has sinus pressure when she leans forward quit taking her Cardizem 2 days ago because she started that recently she thought maybe that was making her sick. Patient's had history of surgeries on her knees, gastric bypass 3 years ago and breast cancer surgery. Associated symptoms: Reports nausea and vomiting; Deny chest pain, dyspnea, headache(s) or rash Review of Systems Const: Reports: chills; Denies: fever(s) or body aches Eyes: Denies: eye discomfort ENMT: Reports: throat pain and sinus pain Card: Denies: chest pain Resp: Reports: non-productive cough; Denies: dyspnea GI: Reports: nausea and vomiting; Denies: abdominal pain Skin/Breast: Denies: rash Neuro: Denies: headache(s) Psych: Denies: depression or suicidal ideation PFSH ED PFSH: Medical History Edema History of breast cancer Hypertension Pericardial effusion Surgical History H/O breast reconstruction H/O gastric bypass H/O knee surgery H/O mastectomy H/O neck surgery H/O: hysterectomy History of back surgery Social History Alcohol intake: never Physical Exam Const: COMMON NORMALS: no acute distress, patient oriented x3 and alert HENMT: COMMON NORMALS: normocephalic and external ears normal HEAD & SCALP: normocephalic EXTERNAL EAR: Yes external ears normal Eye: COMMON NORMALS: EOMs intact bilaterally Neck/C-Spine: COMMON NORMALS: no JVD Resp: COMMON NORMALS: normal respiratory effort and No use of accessory muscles Cardio: COMMON NORMALS: no JVD GI: INSPECTION: Yes normal to inspection Extremity: COMMON NORMALS: normal to inspection and full ROM Neuro: COMMON NORMALS: patient oriented x3 SENSORIUM/ORIENTATION: Yes alert Psych: COMMON NORMALS: mental status grossly normal Skin: COMMON NORMALS: no rashes or lesions noted GENERAL SKIN EXAM: no rashes or lesions noted Course Vital Signs: Vital signs: Vital Signs Temperature 97.5 F L 06/18/21 08:59 Pulse Rate 73 06/18/21 08:59 Respiratory Rate 16 06/18/21 08:59 Blood Pressure 150/89 06/18/21 08:59 Pulse Oximetry 94 06/18/21 08:59 [facility] - General Adult Medical Decision Making Patient presents with sinus headache for the last couple weeks with pressure in her maxillary sinuses and some drainage. Patient said she felt really bad yesterday and had muscle aches and vomited. She said she is able to keep food down and drink without difficulty. Patient said she thought maybe is her Cardizem she started on couple weeks ago and so she stopped that for 2 days. Patient responded well to IV Zofran and fluids here also Toradol 30 mg. Patient on exam did have sinus tenderness lungs were clear laboratory studies were good except for positive nitrite trace bacteria and 30-40 white blood cells in the urine, troponin was 12 which is half of her baseline which is 25 last time. Patient denies any shortness of breath or chest discomfort. treated with home prescription for p.o. meds for antibiotic and nausea. Patient follow back up with primary care provider this week also to restart Cardizem. Patient return to the ER for worsening symptoms. Lab Data : 06/18/21 09:00 06/18/21 09:00 Laboratory Results WBC 5.8 10^3/uL (4.0-10.0) 06/18/21 09:00 RBC 3.84 10^6/uL (4.1-5.3) L 06/18/21 09:00 Hgb 12.2 g/dL (11.5-15.3) 06/18/21 09:00 Hct 37.3 % (37.0-47.0) 06/18/21 09:00 MCV 97.1 fl (81-99) 06/18/21 09:00 MCH 31.8 pg (28.0-34.0) 06/18/21 09:00 MCHC 32.7 g/dL (30.0-36.0) 06/18/21 09:00 RDW 12.7 % (12.1-15.1) 06/18/21 09:00 Plt Count 203 10^3/cmm (130-400) 06/18/21 09:00 MPV 11.2 fL (7.4-10.4) H 06/18/21 09:00 Neut % (Auto) 64.3 % 06/18/21 09:00 Lymph % (Auto) 21.6 % 06/18/21 09:00 [place] % (Auto) 10.7 % 06/18/21 09:00 Eos % (Auto) 2.6 % 06/18/21 09:00 Baso % (Auto) 0.5 % 06/18/21 09:00 Neut # (Auto) 3.71 10^3/uL (1.8-7.7) 06/18/21 09:00 Lymph # (Auto) 1.3 10^3/uL (0.8-4.8) 06/18/21 09:00 [place] # (Auto) 0.6 10^3/uL (0.2-0.9) 06/18/21 09:00 Eos # (Auto) 0.2 10^3/uL (0.0-0.8) 06/18/21 09:00 Baso # (Auto) 0.0 10^3/uL (0.0-0.1) 06/18/21 09:00 Nucleated RBC % (auto) 0 % 06/18/21 09:00 Nucleated RBCs # 0.0 /100WBC 06/18/21 09:00 Sodium 139 mmol/L (136-145) 06/18/21 09:00 Potassium 4.0 mmol/L (3.5-5.1) 06/18/21 09:00 Chloride 101 mmol/L (98-107) 06/18/21 09:00 Carbon Dioxide 25 mmol/L (22-29) 06/18/21 09:00 Anion Gap 17.0 (5-19) 06/18/21 09:00 BUN 11 mg/dL (8-23) 06/18/21 09:00 Creatinine 0.9 mg/dL (0.5-0.9) 06/18/21 09:00 GFR Calculation Not Reportable 04/17/22 09:00 Glucose 106 mg/dL (65-115) 06/18/21 09:00 Calculated Osmolality 288 mOsm/kg (285-295) 06/18/21 09:00 Calcium 8.7 mg/dL (8.5-10.5) 06/18/21 09:00 Total Bilirubin 0.2 mg/dL (0.15-1.2) 06/18/21 09:00 AST 16 U/L (0-32) 06/18/21 09:00 ALT 20 U/L (0-33) 06/18/21 09:00 Alkaline Phosphatase 104 IU/L (35-105) 06/18/21 09:00 Troponin T Baseline 12 ng/L (0-10) H 06/18/21 09:00 Total Protein 6.6 g/dL (6.6-8.7) 06/18/21 09:00 Albumin 4.5 g/dL (3.5-5.2) 06/18/21 09:00 Globulin 2.1 g/dL (1.3-4.6) 06/18/21 09:00 Lipase 35 U/L (13-60) 06/18/21 09:00 Urine Color Yellow (Yellow) 06/18/21 09:25 Urine Appearance Cloudy (CLEAR) 06/18/21 09:25 Urine pH 5 (5-7) 06/18/21 09:25 Ur Specific [place] 1.030 (1.005-1.030) 06/18/21 09:25 Urine Protein Trace (Negative) 06/18/21 09:25 Urine Glucose (UA) Norm (Normal) 06/18/21 09:25 Urine Ketones Negative (Negative) 06/18/21 09:25 Urine Blood Trace (Negative) H 06/18/21 09:25 Urine Nitrate Positive (Negative) H 06/18/21 09:25 Urine Bilirubin 1+ (Negative) H 06/18/21 09:25 Urine Urobilinogen 1 mg/dL (Negative) H 06/18/21 09:25 Ur Leukocyte Esterase Negative (Negative) 06/18/21 09:25 Urine RBC 0-4 /hpf (0-2) H 06/18/21 09:25 Urine WBC 25-40 /hpf (0-5) H 06/18/21 09:25 Ur Squamous Epith Cells 0-4 /hpf (0-5) H 06/18/21 09:25 Amorphous Sediment Not Reportable 06/18/21 09:25 Urine Bacteria None /hpf (NONE) 06/18/21 09:25 EKG Data EKG 1: EKG interpretation date: 06/18/21 EKG interpretation time: 08:40 Computer generated interpretation: Sinus rhythm. Possible ST deviation moderate T wave abnormality -0.1 T wave in V3 through V6. Ventricular rate 79 bpm SC interval 160 ms QRS duration 86 ms QT is 341 ms Discharge Plan Discharge Patient Disposition: Home Clinical Impression: Sinus pain, Bacterial UTI Condition: Stable Prescriptions: New Bactrim DS 800-160 mg tablet 1 tab PO BID 10 Days Qty: 20 0RF ondansetron HCl 4 mg tablet 4 mg PO TID PRN (Reason: nausea and vomiting) 3 Days Qty: 9 0RF No Action colchicine 0.6 mg tablet 0.6 mg PO BID Qty: 60 5RF ibuprofen 800 mg tablet 800 mg PO TID Qty: 90 3RF citalopram 40 mg tablet 40 mg PO DAILY 0RF lisinopril 20 mg tablet 20 mg PO BID 0RF aspirin [Aspir-81] 81 mg Tablet,Delayed Release (Dr/Ec) 162 mg PO DAILY 0RF pantoprazole 40 mg tablet,delayed release (DR/EC) 40 mg PO DAILY 0RF cyanocobalamin (vitamin B-12) 1,000 mcg/mL solution 1,000 mcg IM Q30D 0RF lidocaine [Lidoderm] 5 % Adhesive Patch,Medicated See Rx Instructions .ROUTE .COMPLEX 0RF Rx Instructions: 1 patch on for 12 hours and off for 12 hours oxycodone 30 mg tablet 30 mg PO Q4H PRN (Reason: Pain) 0RF albuterol sulfate 90 mcg/actuation HFA aerosol inhaler 2 puff INHALATION Q6H PRN (Reason: Shortness Of Breath) 0RF topiramate 100 mg tablet 100 mg PO BID 0RF fluticasone propionate 50 mcg/actuation spray,suspension 2 spray INTRANASAL DAILY PRN (Reason: unknown) 0RF Vitron-C 65 mg iron- 125 mg Tablet,Delayed Release (Dr/Ec) 1 tab PO DAILY 0RF potassium chloride 20 mEq Tablet Extended Release 20 meq PO DAILY 0RF Movantik 25 mg tablet 25 mg PO DAILY PRN (Reason: Constipation) 0RF tizanidine 4 mg capsule 4 mg PO Q6H PRN (Reason: muscle spasticity) Qty: 30 0RF Rx Instructions: do not exceed 3 doses per 24 hrs furosemide 20 mg tablet 20 mg PO DAILY 0RF Euthyrox 100 mcg tablet 100 mcg PO DAILY 0RF Vitamin D3 25 mcg (1,000 unit) Capsule 25 mcg PO DAILY 0RF alendronate 70 mg Tablet 70 mg PO Q7D 0RF Rx Instructions: on Saturdays Discharge Orders: Discharge ED (Routine); Ordered 06/18/21 Ordered By: Bryant Pierre Discharge Diet: Usual diet Discharge Activity: Increase activity as tolerated Patient Instructions: Urinary Tract Infection in Women (ED), Upper Respiratory Infection (ED) Activity Restrictions/Additional Instructions: Follow-up with medical provider as directed. Take medications as prescribed. Return to the ER or your medical provider if condition worsens. Please read and understand discharge instructions. If any questions ask please. 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
[2021-06-18] MEDS: ondansetron 2 mg/ML SDV 2 mL 4 MG IVP (08:51)
[2021-06-18] MEDS: ketorolac 30 mg/mL INJ IVP (08:51)
[2021-06-18] MEDS: sodium chloride 0.9% 1,000 ML 999 ML IV (08:54)
[2021-06-18 08:59] VITALS: BP 150/89; PULSE 73; RESP 16; TEMP 36.4; O2SAT 94
[2021-06-18 09:08] LABS: Basophils % 0.5 %; Eosinophils # 0.2 10^3/uL (0.0-0.8); Eosinophils % 2.6 %; Hematocrit 37.3 % (37.0-47.0); Hemoglobin 12.2 g/dL (11.5-15.3); Lymphocytes # 1.3 10^3/uL (0.8-4.8); Lymphocytes % 21.6 %; Mean Corpuscular HGB Conc 32.7 g/dL (30.0-36.0); Mean Corpuscular Hemoglobin 31.8 pg (28.0-34.0); Mean Corpuscular Volume 97.1 fl (81-99); Mean Platelet Volume 11.2 fL (7.4-10.4); Monocytes # 0.6 10^3/uL (0.2-0.9); Monocytes % 10.7 %; Neutrophils # 3.71 10^3/uL (1.8-7.7); Neutrophils % 64.3 %; Nucleated Red Blood Cells % 0 %; Platelet Count 203 10^3/cmm (130-400); Red Blood Count 3.84 10^6/uL (4.1-5.3); Red Cell Distribution Width 12.7 % (12.1-15.1); White Blood Count 5.8 10^3/uL (4.0-10.0)
[2021-06-18 09:32] LABS: Troponin(5th) Baseline 12 ng/L (0-10)
[2021-06-18 09:35] LABS: Alanine Aminotransferase 20 U/L (0-33); Albumin Level 4.5 g/dL (3.5-5.2); Alkaline Phosphatase 104 IU/L (35-105); Aspartate Amino Transferase 16 U/L (0-32); Blood Urea Nitrogen 11 mg/dL (8-23); Calcium 8.7 mg/dL (8.5-10.5); Carbon Dioxide 25 mmol/L (22-29); Chloride 101 mmol/L (98-107); Globulin 2.1 g/dL (1.3-4.6); Glucose 106 mg/dL (65-115); Lipase 35 U/L (13-60); Osmolality Calculated 288 mOsm/kg (285-295); Sodium 139 mmol/L (136-145); Total Bilirubin 0.2 mg/dL (0.15-1.2); Total Protein 6.6 g/dL (6.6-8.7)
[2021-06-18 09:39] LABS: Urine Appearance Cloudy (CLEAR); Urine Color Yellow (Yellow); pH Urine 5 (5-7)
[2021-06-18 09:40] LABS: Add Urine Microscopic? YES; Bilirubin Urine 1+ (Negative); Blood Urine Trace (Negative); Glucose Urine UA Norm (Normal); Ketones Urine Negative (Negative); Leukocyte Esterase Urine Negative (Negative); Nitrate Urine Positive (Negative); Protein Urine Trace (Negative); Urobilinogen Urine 1 mg/dL (Negative)
[2021-06-18 09:41] LABS: Add Urine Culture? Yes; RBC Urine 0-4 /hpf (0-2); Squamous Epithelial Cell Urine 0-4 /hpf (0-5); WBC Urine 25-40 /hpf (0-5)
[2021-06-18 10:01] VITALS: BP 156/89; PULSE 81; RESP 18; TEMP 36.9; O2SAT 96
== END 2021-06-18 10:03 | disposition home or self-care (01) ==
PROVIDERS: Emergency Provider Nurse Practitioner Family
DX: N39.0 Urinary tract infection, site not specified (principal); B96.89 Other specified bacterial agents as the cause of diseases classified elsewhere; Z79.891 Long term (current) use of opiate analgesic
CPT/HCPCS: 71045; 80053; 81001; 83690; 84484; 85025; 87086; 93005; 96361; 96374; 96375; 99284; J1885; J2405; J7030

== ENCOUNTER → 2021-06-28 10:24 | Outpatient (BNVA) | payer MEDICARE, OTHER, SELFPAY | PROVIDERS: Visit Provider Family Medicine | DX: N39.0 Urinary tract infection, site not specified (principal) | CPT/HCPCS: 81000 ==

== ENCOUNTER 2021-10-21 10:06 | Emergency (ER) | payer MEDICARE, OTHER, SELFPAY ==
[2021-10-21 10:38] VITALS: BP 116/69; PULSE 62; RESP 18; TEMP 36.8; O2SAT 100; BMI 26.7
--- NOTE | 2021-10-21 11:02 | XRR_ITS ---
PROCEDURE INFORMATION: Exam: XR Chest Exam date and time: 10/21/2021 11:44 AM Age: 76 years old Clinical indication: Cough and fever; Prior surgery; Surgery date: 6+ months; Surgery type: Bilat mastectomy; Additional info: Cough, fevers TECHNIQUE: Imaging protocol: Radiologic exam of the chest. Views: 1 view. COMPARISON: CR XR chest 1V portable [id number] 06/18/2021 8:43 AM FINDINGS: Lungs: Right lower lobe atelectasis is seen. No consolidation. Pleural spaces: Elevated right hemidiaphragm. No pleural effusion. No pneumothorax. Heart/Mediastinum: Unremarkable. No cardiomegaly. Bones/joints: Unremarkable. XR/XR chest 1V portable [id number] IMPRESSION: 1. No acute findings. 2. Right lower lobe atelectasis
--- NOTE | 2021-10-21 11:03 | ED_ITS ---
HPI - General Adult General: Chief complaint: General Medical Stated complaint: Headpain, Ear pain, sore throat Time Seen by Provider: 10/21/21 10:23 Source: patient Mode of arrival: ambulatory Limitations: no limitations History of Present Illness: Patient is a 76-year-old female presents to ED today for multiple medical complaints. Patient states over the past several days she has had some lower back pain, suprapubic pain, dysuria, and urinary frequency and urgency. She states she does have a history of UTIs and states her symptoms are similar. She is also having nausea and vomiting that began 3 days ago. She does have some generalized abdominal discomforts but most of her pain is suprapubically. Denies any changes to her bowel movements. She reports subjective fevers yesterday as well as chills. She complains of a headache, right ear pain, and a sore throat. She states yesterday she had a cough and felt short of breath. No sick contacts although they are actively traveling. Patient is fully immunized for COVID. Onset (ago): day(s) Relieving factors: none Exacerbating factors: none Associated symptoms: Reports dyspnea, headache(s), malaise, nausea and vomiting; Deny chest pain, confusion, rash, palpitations or syncope Treatments prior to arrival: none Review of Systems Const: Reports: fever(s) (subjective), chills, body aches, change in appetite, fatigue and malaise Eyes: Denies: change in vision, blurry vision, photophobia, eye discharge, floaters or seeing flashes ENMT: Reports: throat pain, odynophagia and ear or mastoid pain; Denies: uvular edema, enlarged tonsils, ear discharge, nasal discharge, nasal congestion, post nasal drip or sinus pain Card: Denies: chest pain, palpitations, irregular heart rhythm, edema, swelling of feet/ankles, lightheadedness, syncope, pre-syncope or orthopnea Resp: Reports: dyspnea, non-productive cough and chest congestion; Denies: wheezing, pain on inspiration or hemoptysis GI: Reports: abdominal pain, nausea, vomiting and constipation (chronically fr om opiate use); Denies: hematemesis or diarrhea : Reports: dysuria, urinary frequency and urinary urgency; Denies: flank pain or hematuria Musc: Reports: back pain; Denies: neck pain, extremity pain, extremity swelling, joint pain or joint swelling Skin/Breast: Denies: rash Neuro: Reports: headache(s); Denies: numbness in extremities, weakness in extremities, sensory changes, lack of coordination, difficulty walking, frequent falls, dizziness, confusion, behavioral changes or Slurred speech present [facility] PFSH: Medical History Edema History of breast cancer History of nonmelanoma skin cancer Hypertension Pericardial effusion Surgical History H/O breast reconstruction H/O gastric bypass H/O knee surgery H/O mastectomy H/O neck surgery H/O: hysterectomy History of back surgery Social History Smoking and tobacco status: never smoked Alcohol intake: never Physical Exam Const: COMMON NORMALS: no acute distress, patient oriented x3, no limitations, alert and well nourished GENERAL APPEARANCE: cooperative ORIENTATI ON/CONSCIOUSNESS: Yes awake, Yes oriented to person, Yes oriented to place and Yes oriented to time HENMT: COMMON NORMALS: normocephalic, atraumatic, hearing grossly normal bilaterally, external ears normal, EAC's normal, Normal external nose present, Normal nasal mucous membranes and turbinates present, moist oral mucous membranes, oropharynx normal, dentition normal and gingiva normal HEAD & SCALP: normal to inspection, normocephalic and atraumatic FACE & SINUS: normal facial exam NOSE: Normal external nose present and Normal nasal mucous membranes and turbinates present EXTERNAL EAR: Yes external ears normal EXTERNAL AUDITORY CANAL: EAC's normal TYMPANIC MEMBRANE: TM abnormal (bilateral R>L serous otitis media) MOUTH: Normal oral and palatal mucosa present, lip normal and tongue normal THROAT: posterior oropharynx normal, tonsils normal and uvula midline; no uvular edema Eye: COMMON NORMALS: Equal, round and reactive pupils present and EOMs intact bilaterally GENERAL EYE: appearance normal, both eyes and all related s tructures PUPIL: Yes Equal, round and reactive pupils present Neck/C-Spine: COMMON NORMALS: full ROM, no lymphadenopathy and no meningeal signs Resp: COMMON NORMALS: normal respiratory effort and clear to auscultation bilaterally AUSCULTATION: clear to auscultation bilaterally Cardio: COMMON NORMALS: regular rhythm RATE: bradycardic (mild-mid 50s currently ) RHYTHM: regular rhythm GI: COMMON NORMALS: Normal to inspection, nondistended, normoactive bowel sounds present, Soft to palpation, No hepatosplenomegaly present and no masses INSPECTION: Yes normal to inspection and Yes scar (vertical open incision- previous gastric bypass) AUSCULTATION: Yes normoactive bowel sounds PALPATION: Yes Soft to palpation, Yes Tenderness to palpation present (GI) (suprapubic), No Guarding due to palpation present (GI), No Rigid due to palpation and Yes No hepatosplenomegaly present : COMMON NORMALS: Yes no CVA tenderness BLADDER/KIDNEY EXAM: Yes no CVA tenderness Back/Pelvis: COMMON NORMALS: no CVA tenderness, thoracic and lumbar spine normal to inspection, no thoracic nor lumbar tenderness and thoraco-lumbar ROM normal Extremity: COMMON NORMALS: normal to inspection GENERAL: Yes normal exam except as noted Neuro: DARBY COMA SCALE: document GCS findings Rayne coma scale eye opening: Spontaneous Darby coma scale verbal response: Orientated Darby coma scale motor response: Obey commands Darby coma scale total score: 15 COMMON NORMALS: patient oriented x3, CN's II-XII intact bilaterally, moves all extremities, no focal motor deficits and no sensory deficits noted SENS ORIUM/ORIENTATION: Yes alert, Yes oriented to person, Yes oriented to place and Yes oriented to time MENINGEAL SIGNS: Yes no meningeal signs Skin: COMMON NORMALS: no rashes or lesions noted GENERAL SKIN EXAM: no rashes or lesions noted Course Vital Signs: Vital signs: Vital Signs Temperature 96.0 F L 10/21/21 12:11 Pulse Rate 51 L 10/21/21 12:11 Respiratory Rate 15 10/21/21 12:11 Blood Pressure 122/56 10/21/21 12:11 Pulse Oximetry 98 10/21/21 12:11 Oxygen Delivery Me thod 10/21/21 12:11 [facility] - General Adult Medical Decision Making Patient here with multiple medical complaints including headache, ear pain, sore throat, nausea and vomiting, abdominal pains, lower back pain, among some other complaints. Patient chronically has neck and back pain. She takes 30 mg of oxycodone every 4 hours for this. Patient's vital signs here are stable. Her blood work is fairly unremarkable. She does not have a UTI. Coronavirus PCR is negative. CXR is normal. CT abdomen and pelvis showing no acute findings. At this time patient's symptoms most likely viral and recommend conservative therapies at home. Recommend she follow-up with primary care early this week for reevaluation. Return to ED precautions given. Lab Data : 10/21/21 11:20 10/21/21 11:20 Radiology Impressions Chest X-Ray 10/21/21 11:02 IMPRESSION: 1. No acute findings. 2. Right lower lobe atelectasis Abdomen/Pelvis CT 10/21/21 11:52 IMPRESSION: 1. No acute findings. 2. Status post bariatric surgery 3. Benign cyst upper pole left kidney 4. Osteopenia and osteoarthritis of the spine. 5. Stable compression fracture superior endplate T11 and T12 . COMMENTS: Consistent with the [employer]'s Incidental Findings Committee white paper (J Am Diomedes Radiol 2018): Any incidental renal lesion less than 1 cm or classified as too small to characterize, or any incidental cystic renal lesion characterized as simple-appearing, is likely benign. No follow-up imaging is recommended for these lesions per consensus recommendations based on imaging criteria. Laboratory Results WBC 4.9 10^3/uL (4.0-10.0) 10/21/21 11:20 RBC 3.79 10^6/uL (4.1-5.3) L 10/21/21 11:20 Hgb 11.5 g/dL (11.5-15.3) 10/21/21 11:20 Hct 36.0 % (37.0-47.0) L 10/21/21 11:20 MCV 95.0 fl (81-99) 10/21/21 11:20 MCH 30.3 pg (28.0-34.0) 10/21/21 11:20 MCHC 31.9 g/dL (30.0-36.0) 10/21/21 11:20 RDW 14.9 % (12.1-15.1) 10/21/21 11:20 Plt Count 185 10^3/cmm (130-400) 10/21/21 11:20 MPV 11.7 fL (7.4-10.4) H 10/21/21 11:20 Neut % (Auto) 63.4 % 10/21/21 11:20 Lymph % (Auto) 23.9 % 10/21/21 11:20 Isabella % (Auto) 8.8 % 10/21/21 11:20 Eos % (Auto) 2.9 % 10/21/21 11:20 Baso % (Auto) 0.4 % 10/21/21 11:20 Neut # (Auto) 3.08 10^3/uL (1.8-7.7) 10/21/21 11:20 Lymph # (Auto) 1.2 10^3/uL (0.8-4.8) 10/21/21 11:20 Isabella # (Auto) 0.4 10^3/uL (0.2-0.9) 10/21/21 11:20 Eos # (Auto) 0.1 10^3/uL (0.0-0.8) 10/21/21 11:20 Baso # (Auto) 0.0 10^3/uL (0.0-0.1) 10/21/21 11:20 Nucleated RBC % (auto) 0 % 10/21/21 11:20 Nucleated RBCs # 0.0 /100WBC 10/21/21 11:20 Sodium 138 mmol/L (136-145) 10/21/21 11:20 Potassium 4.7 mmol/L (3.5-5.1) 10/21/21 11:20 Chloride 105 mmol/L (98-107) 10/21/21 11:20 Carbon Dioxide 23 mmol/L (22-29) 10/21/21 11:20 Anion Gap 14.7 (5-19) 10/21/21 11:20 BUN 26 mg/dL (8-23) H 10/21/21 11:20 Creatinine 1.3 mg/dL (0.5-0.9) H 10/21/21 11:20 GFR Calculation Not Reportable 10/21/21 11:20 Glucose 82 mg/dL (65-115) 10/21/21 11:20 Calculated Osmolality 290 mOsm/kg (285-295) 10/21/21 11:20 Calcium 8.9 mg/dL (8.5-10.5) 10/21/21 11:20 Total Bilirubin 0.2 mg/dL (0.15-1.2) 10/21/21 11:20 AST 14 U/L (0-32) 10/21/21 11:20 ALT 13 U/L (0-33) 10/21/21 11:20 Alkaline Phosphatase 73 U/L (35-105) 10/21/21 11:20 Total Protein 6.8 g/dL (6.6-8.7) 10/21/21 11:20 Albumin 4.7 g/dL (3.5-5.2) 10/21/21 11:20 Globulin 2.1 g/dL (1.3-4.6) 10/21/21 11:20 Lipase 53 U/L (13-60) 10/21/21 11:20 Urine Color Yellow (Yellow) 10/21/21 10:57 Urine Appearance Sl hazy (CLEAR) 10/21/21 10:57 Urine pH 5 (5-7) 10/21/21 10:57 Ur Specific [place] 1.010 (1.005-1.030) 10/21/21 10:57 Urine Protein Neg (Negative) 10/21/21 10:57 Urine Glucose (UA) Norm (Normal) 10/21/21 10:57 Urine Ketones Negative (Negative) 10/21/21 10:57 Urine Blood Neg (Negative) 10/21/21 10:57 Urine Nitrate Negative (Negative) 10/21/21 10:57 Urine Bilirubin Neg (Negative) 10/21/21 10:57 Urine Urobilinogen Norm mg/dL (Negative) 10/21/21 10:57 Ur Leukocyte Esterase Negative (Negative) 10/21/21 10:57 Urine RBC None /hpf (0-2) 10/21/21 10:57 Urine WBC Rare /hpf (0-5) 10/21/21 10:57 Ur Squamous Epith Cells 5-10 /hpf (0-5) H 10/21/21 10:57 Amorphous Sediment Not Reportable 10/21/21 10:57 Urine Bacteria None /hpf (NONE) 10/21/21 10:57 Hyaline Casts 5-10 /lpf H 10/21/21 10:57 Coronavirus 229E (PCR) Not detected (NOT DETECT) 10/21/21 11:20 SARS-CoV-2 (PCR) Not detected (NOT DETECT) 10/21/21 11:20 Discharge Plan Discharge Patient Disposition: Home Clinical Impression: Nonspecific syndrome suggestive of viral illness Condition: Stable Prescriptions: No Action promethazine 25 mg tablet 25 mg PO TID PRN (Reason: nausea and vomiting) Qty: 20 0RF ibuprofen 800 mg tablet 800 mg PO TID Qty: 90 3RF citalopram 40 mg tablet 40 mg PO DAILY lisinopril 20 mg tablet 20 mg PO BID aspirin [Aspir-81] 81 mg Tablet,Delayed Release (Dr/Ec) 162 mg PO DAILY pantoprazole 40 mg tablet,delayed release (DR/EC) 40 mg PO DAILY cyanocobalamin (vitamin B-12) 1,000 mcg/mL solution 1,000 mcg IM Q30D lidocaine [Lidoderm] 5 % Adhesive Patch,Medicated See Rx Instructions .ROUTE .COMPLEX Rx Instructions: 1 patch on for 12 hours and off for 12 hours oxycodone 30 mg tablet 30 mg PO Q4H PRN (Reason: Pain) albuterol sulfate 90 mcg/actuation HFA aerosol inhaler 2 puff INHALATION Q6H PRN (Reason: Shortness Of Breath) fluticasone propionate 50 mcg/actuation spray,suspension 2 spray INTRANASAL DAILY PRN (Reason: unknown) Vitron-C 65 mg iron- 125 mg Tablet,Delayed Release (Dr/Ec) 1 tab PO DAILY potassium chloride 20 mEq Tablet Extended Release 20 meq PO DAILY Movantik 25 mg tablet 25 mg PO DAILY PRN (Reason: Constipation) furosemide 20 mg tablet 20 mg PO DAILY Euthyrox 100 mcg tablet 100 mcg PO DAILY Vitamin D3 25 mcg (1,000 unit) Capsule 25 mcg PO DAILY alendronate 70 mg Tablet 70 mg PO Q7D Rx Instructions: on Saturdays Discharge Orders: Discharge ED (Routine); Ordered 10/21/21 Ordered By: Pratima Pérez Coding Level of Care Code ED Manager [employer] for Chg Fwd Exam Comprehensive
--- NOTE | 2021-10-21 11:03 | PC.NURSE ---
Patient here with c/o of possible UTI, nausea, ear ache, onset last week with vomiting and loss of appetite, recent local travel.
[2021-10-21] MEDS: ondansetron 2 mg/ML SDV 2 mL 4 MG IVP (11:21)
[2021-10-21 11:36] LABS: Basophils % 0.4 %; Eosinophils # 0.1 10^3/uL (0.0-0.8); Eosinophils % 2.9 %; Hemoglobin 11.5 g/dL (11.5-15.3); Lymphocytes # 1.2 10^3/uL (0.8-4.8); Lymphocytes % 23.9 %; Mean Corpuscular HGB Conc 31.9 g/dL (30.0-36.0); Mean Corpuscular Hemoglobin 30.3 pg (28.0-34.0); Mean Platelet Volume 11.7 fL (7.4-10.4); Monocytes # 0.4 10^3/uL (0.2-0.9); Monocytes % 8.8 %; Neutrophils # 3.08 10^3/uL (1.8-7.7); Neutrophils % 63.4 %; Nucleated Red Blood Cells % 0 %; Platelet Count 185 10^3/cmm (130-400); Red Blood Count 3.79 10^6/uL (4.1-5.3); Red Cell Distribution Width 14.9 % (12.1-15.1); White Blood Count 4.9 10^3/uL (4.0-10.0)
[2021-10-21 11:47] LABS: Alanine Aminotransferase 13 U/L (0-33); Albumin Level 4.7 g/dL (3.5-5.2); Alkaline Phosphatase 73 U/L (35-105); Anion Gap 14.7 (5-19); Aspartate Amino Transferase 14 U/L (0-32); Blood Urea Nitrogen 26 mg/dL (8-23); Calcium 8.9 mg/dL (8.5-10.5); Carbon Dioxide 23 mmol/L (22-29); Chloride 105 mmol/L (98-107); Globulin 2.1 g/dL (1.3-4.6); Glucose 82 mg/dL (65-115); Lipase 53 U/L (13-60); Osmolality Calculated 290 mOsm/kg (285-295); Potassium 4.7 mmol/L (3.5-5.1); Sodium 138 mmol/L (136-145); Total Bilirubin 0.2 mg/dL (0.15-1.2); Total Protein 6.8 g/dL (6.6-8.7)
[2021-10-21 11:47] LABS: Add Urine Microscopic? YES; Bilirubin Urine Neg (Negative); Blood Urine Neg (Negative); Glucose Urine UA Norm (Normal); Ketones Urine Negative (Negative); Leukocyte Esterase Urine Negative (Negative); Nitrate Urine Negative (Negative); Protein Urine Neg (Negative); Urine Appearance SL Hazy (CLEAR); Urine Color Yellow (Yellow); Urobilinogen Urine Norm (Negative); pH Urine 5 (5-7)
[2021-10-21 11:48] LABS: WBC Urine RARE /hpf (0-5)
[2021-10-21 11:49] LABS: Add Urine Culture? No
--- NOTE | 2021-10-21 11:52 | CTR_ITS ---
PROCEDURE INFORMATION: Exam: CT Abdomen And Pelvis Without Contrast Exam date and time: 10/21/2021 1:04 PM Age: 76 years old Clinical indication: Abdominal pain; Generalized; Prior surgery; Surgery type: Hysto; Additional info: Abdominal pain, n/v, subjective fevers/chills TECHNIQUE: Imaging protocol: Computed tomography of the abdomen and pelvis without contrast. Radiation optimization: All CT scans at this facility use at least one of these dose optimization techniques: automated exposure control; mA and/or kV adjustment per patient size (includes targeted exams where dose is matched to clinical indication); or iterative reconstruction. COMPARISON: CT angio chest PE protcl [id number] 09/23/2020 5:48 PM RADIATION DOSE METRICS: Total DLP (mGy-cm): 828.8 FINDINGS: Liver: Normal. No mass. Gallbladder and bile ducts: Normal. No calcified stones. No ductal dilation. Pancreas: Normal. No ductal dilation. Spleen: Normal. No splenomegaly. Adrenal glands: Normal. No mass. Kidneys and ureters: There is a 21 mm benign cyst upper pole left kidney No hydronephrosis. Stomach and bowel: Surgical sutures are present in the stomach and proximal small bowel corresponding to bariatric surgery. No obstruction. No mucosal thickening. Appendix: No evidence of appendicitis. Intraperitoneal space: Unremarkable. No free air. No significant fluid collection. Vasculature: Unremarkable. No abdominal aortic aneurysm. Lymph nodes: Unremarkable. No enlarged lymph nodes. Urinary bladder: Unremarkable as visualized. Reproductive: Unremarkable as visualized. Bones/joints: There is generalized osteopenia and osteoarthritis seen in the spine. There are compression fractures of the superior endplate of the T11 and T12 vertebral bodies . These findings were present on prior CT chest examination Soft tissues: Unremarkable. CT/CT abdomen pelvis wo con [id number] IMPRESSION: 1. No acute findings. 2. Status post bariatric surgery 3. Benign cyst upper pole left kidney 4. Osteopenia and osteoarthritis of the spine. 5. Stable compression fracture superior endplate T11 and T12 . COMMENTS: Consistent with the [employer]'s Incidental Findings Committee white paper (J Am Diomedes Radiol 2018): Any incidental renal lesion less than 1 cm or classified as too small to characterize, or any incidental cystic renal lesion characterized as simple-appearing, is likely benign. No follow-up imaging is recommended for these lesions per consensus recommendations based on imaging criteria.
[2021-10-21 12:11] VITALS: BP 122/56; PULSE 51; RESP 15; TEMP 35.6; O2SAT 98
--- NOTE | 2021-10-21 13:21 | ECG_ITS ---
[facility] Test Date: 2021-10-21 Pat Name: Mary Kumar Department: Room: Gender: Female Mobile Manager: : 1945 Requested By: Pratima Pérez Order Number: [id number] Bruna MD: Honey Pratt M.D. Measurements Intervals [place] Rate: 51 P: 53 VT: 172 QRS: 44 QRSD: 83 T: -28 QT: 412 QTc: 382 Interpretive Statements SINUS BRADYCARDIA NONSPECIFIC T-WAVE ABNORMALITY Compared to ECG 06/18/2021 08:40:04 Sinus rhythm no longer present Possible ischemia no longer present T-wave abnormality still present Electronically Signed On 10-21-2021 13:34:36 CDT by Honey Pratt M.D. [id number]
[2021-10-21 13:24] LABS: Adenovirus Not Detected (NOT DETECT); Chlamydia Pneumoniae Not Detected (NOT DETECT); Coronavirus 229E,HKU1,NL63,OC4 Not Detected (NOT DETECT); Human Metapneumovirus Not Detected (NOT DETECT); Human Rhinovirus/Enterovirus Not Detected (NOT DETECT); Influenza A Not Detected (NOT DETECT); Influenza A H1 Not Detected (NOT DETECT); Influenza A H1-2009 Not Detected (NOT DETECT); Influenza A H3 Not Detected (NOT DETECT); Influenza B Not Detected (NOT DETECT); Mycoplasma Pneumoniae Not Detected (NOT DETECT); Parainfluenza Virus Type 1 Not Detected (NOT DETECT); Parainfluenza Virus Type 2 Not Detected (NOT DETECT); Parainfluenza Virus Type 3 Not Detected (NOT DETECT); Parainfluenza Virus Type 4 Not Detected (NOT DETECT); Respiratory Syncytial Virus A Not Detected (NOT DETECT); Respiratory Syncytial Virus B Not Detected (NOT DETECT); SARS-COV-2 Not Detected (NOT DETECT)
[2021-10-21 14:20] VITALS: BP 124/50; PULSE 50; RESP 14; TEMP 36.6
--- NOTE | 2021-10-21 14:22 | PC.NURSE ---
Discharge instructions reviewed with patient, expressed a verbal and written understanding of instructions, int [email or web address]'d,
[2021-10-21 14:23] VITALS: BP 124/50; PULSE 50; RESP 14; TEMP 36.6; O2SAT 98
== END 2021-10-21 14:25 | disposition home or self-care (01) ==
PROVIDERS: Emergency Provider Physician Assistant
DX: R51.9 Headache, unspecified (principal); J02.9 Acute pharyngitis, unspecified; H92.01 Otalgia, right ear; I10 Essential (primary) hypertension; Z85.3 Personal history of malignant neoplasm of breast; Z79.82 Long term (current) use of aspirin; Z20.822 Contact with and (suspected) exposure to COVID-19
CPT/HCPCS: 71045; 74176; 80053; 81001; 83690; 85025; 87635; 93005; 96374; 99285; J2405

== ENCOUNTER → 2021-10-25 15:32 | Outpatient (BNVA) | payer MEDICARE, OTHER, SELFPAY | PROVIDERS: Visit Provider Internal Medicine | DX: R07.89 Other chest pain (principal); I10 Essential (primary) hypertension; I31.3 Pericardial effusion (noninflammatory); R94.31 Abnormal electrocardiogram [ECG] [EKG]; Z85.3 Personal history of malignant neoplasm of breast | CPT/HCPCS: 80048; 83880; 85025; 99214 ==

== ENCOUNTER → 2021-10-26 11:57 | Outpatient (BNVA) | payer MEDICARE, OTHER, SELFPAY | PROVIDERS: Visit Provider Emergency Medicine | DX: R39.9 Unspecified symptoms and signs involving the genitourinary system (principal); J01.90 Acute sinusitis, unspecified | CPT/HCPCS: 81000 ==

== ENCOUNTER 2022-03-09 07:17 | Emergency (ER) | payer MEDICARE, OTHER, SELFPAY ==
[2022-03-09] VITALS (11 sets, daily range): BP systolic 133–167; BP diastolic 64–96; PULSE 53–89; RESP 14–19; O2SAT 95–99; BMI 24.3
--- NOTE | 2022-03-09 07:35 | XR_ITS ---
WS: [id number] Portable AP upright chest, 03/09/2022 Clinical Data: chest pain Comparison: Portable chest, 10/21/2021 Findings: No nodules, masses or effusions are seen. The heart is normal. The pulmonary vascularity is not increased. No pneumonia or pneumothorax is seen. The right diaphragm is elevated. The aortic arc h and descending thoracic aorta show tortuosity. There are monitor leads on the chest wall. XR/XR chest 1V portable [id number] Impression: Atherosclerosis.
--- NOTE | 2022-03-09 07:44 | ECG_ITS ---
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 Measurements Intervals [place] Rate: 64 P: 43 KS: 165 QRS: 18 QRSD: 89 T: 66 QT: 397 QTc: 412 Interpretive Statements SINUS RHYTHM NONSPECIFIC T-WAVE ABNORMALITY Compared to ECG 10/21/2021 13:21:10 Sinus bradycardia no longer present T-wave abnormality still present Electronically Signed On 03-10-2022 7:12:18 ASH HANDLER by Honey Pratt M.D. [id number]
[2022-03-09 07:45] LABS: Basophils % 0.6 %; Eosinophils # 0.2 10^3/uL (0.0-0.8); Eosinophils % 4.6 %; Hematocrit 38.4 % (37.0-47.0); Hemoglobin 11.7 g/dL (11.5-15.3); Lymphocytes # 1.5 10^3/uL (0.8-4.8); Lymphocytes % 29.8 %; Mean Corpuscular HGB Conc 30.5 g/dL (30.0-36.0); Mean Corpuscular Hemoglobin 28.9 pg (28.0-34.0); Mean Corpuscular Volume 94.8 fl (81-99); Mean Platelet Volume 11.8 fL (7.4-10.4); Monocytes # 0.4 10^3/uL (0.2-0.9); Monocytes % 8.5 %; Neutrophils # 2.91 10^3/uL (1.8-7.7); Neutrophils % 56.3 %; Nucleated Red Blood Cells % 0 %; Platelet Count 202 10^3/cmm (130-400); Red Blood Count 4.05 10^6/uL (4.1-5.3); Red Cell Distribution Width 13.2 % (12.1-15.1); White Blood Count 5.2 10^3/uL (4.0-10.0)
[2022-03-09 07:53] LABS: INR 1.16 (0.8-1.2); Partial Thromboplastin Time 29.8 SECONDS (23.9-36.7)
[2022-03-09 07:58] LABS: Alanine Aminotransferase 12 U/L (0-33); Alkaline Phosphatase 89 U/L (35-105); Anion Gap 13.1 (5-19); Aspartate Amino Transferase 16 U/L (0-32); Blood Urea Nitrogen 20 mg/dL (8-23); Calcium 8.9 mg/dL (8.5-10.5); Carbon Dioxide 23 mmol/L (22-29); Chloride 106 mmol/L (98-107); Creatinine Clr Calc Pharmacy 53.4522; Glucose 107 mg/dL (65-115); Osmolality Calculated 289 mOsm/kg (285-295); Potassium 4.1 mmol/L (3.5-5.1); Sodium 138 mmol/L (136-145); Total Bilirubin 0.2 mg/dL (0.15-1.2)
[2022-03-09 08:00] LABS: Troponin(5th) Baseline 16 ng/L (0-10)
--- NOTE | 2022-03-09 08:03 | W.ED.CHESTPA ---
HPI - Chest Pain General: Chief Complaint: Chest Pain Stated Complaint: chest pain Time Seen by Provider: 03/09/22 07:37 Source: patient Mode of arrival: ambulatory History of Present Illness: 77-year-old female presents emergency room complaining of chest pain. She has had it intermittently for the last day. It lasts a minute or 2 at a time resolved spontaneously she is not noticed anything that exacerbates or relieves it. No fever sweats chills no cough. No history of coronary artery disease. She has a history of breast cancer had a previous pericardial effusion. Patient an echocardiogram in September 2020 which was essentially normal ejection fraction in the 55 to 60%. MD complaint: chest pain Onset (ago): day(s) Timing of current episode: episodic Onset: during rest Pain location: left chest Pain radiation: none Severity: mild Quality: sharp Relieving factors: nothing Exacerbating factors: nothing Associated symptoms: Deny abdominal pain, diaphoresis, dyspnea, fever(s), leg edema, nausea, palpitations, sense of impending doom, syncope or vomiting Treatment prior to arrival: none Review of Systems Const: Denies: fever(s), chills or diaphoresis ENMT: Denies: throat pain, ear or mastoid pain, nasal discharge or nasal congestion Card: Reports: chest pain; Denies: palpitations, irregular heart rhythm, edema or syncope Resp: Denies: dyspnea GI: Denies: abdominal pain, nausea or vomiting : Denies: flank pain, difficulty voiding, dysuria, urinary frequency or urinary urgency Skin/Breast: Denies: rash or pruritus PFS ED PFSH: Medical History Edema History of breast cancer History of nonmelanoma skin cancer Hypertension Pericardial effusion Surgical History H/O breast reconstruction H/O gastric bypass H/O knee surgery H/O mastectomy H/O neck surgery H/O: hysterectomy History of back surgery Social History Smoking and tobacco status: never smoked Alcohol intake: never Physical Exam Const: GENERAL APPEARANCE: cooperative and comfortable ORIENTATION/CONSCIOUSNESS: Yes awake, Yes oriented to person, Yes oriented to place and Yes oriented to time HENMT: COMMON NORMALS: normocephalic, atraumatic and hearing grossly normal bilaterally HEAD & SCALP: normocephalic and atraumatic Lymph: LYMPHATIC: no lymphadenopathy noted and no lymphedema noted Chest: OTHER: Pain somewhat reproducible with chest palpation on the right upper sternal border Resp: COMMON NORMALS: normal respiratory effort, No retractions, No use of accessory muscles and clear to auscultation bilaterally AUSCULTATION: clear to auscultation bilaterally Cardio: COMMON NORMALS: regular rate, regular rhythm and No murmurs present (Cardio) RATE: regular rate RHYTHM: regular rhythm GI: COMMON NORMALS: Soft to palpation and No hepatosplenomegaly present AUSCULTATION: Yes normoactive bowel sounds PALPATION: Yes Soft to palpation, No Tenderness to palpation present (GI), No Guarding due to palpation present (GI) and Yes No hepatosplenomegaly present Extremity: COMMON NORMALS: normal to inspection, capillary refill normal, no clubbing, cyanosis or edema, no calf tenderness and no pedal edema Neuro: SENSORIUM/ORIENTATION: Yes oriented to person, Yes oriented to place and Yes oriented to time Skin: COMMON NORMALS: no rashes or lesions noted GENERAL SKIN EXAM: no rashes or lesions noted Course Vital Signs: Vital signs: Vital Signs Pulse Rate 64 03/09/22 09:30 Respiratory Rate 19 H 03/09/22 09:30 Blood Pressure 148/69 03/09/22 09:30 Pulse Oximetry 98 03/09/22 09:15 Oxygen Delivery Me thod 03/09/22 07:25 MDM - Chest Pain Medical Decision Making Labs imaging and EKG reviewed as found in the chart. Cardiac enzymes unremarkable EKG does not show any acute ST changes. Incidental finding of a cystitis. We will discharge patient home on oral antibiotics set up for outpatient stress testing. Medical Records I reviewed the patient's medical records. Lab Data I reviewed the patient's lab results. 03/09/22 07:30 03/09/22 07:30 Radiology Impressions Chest X-Ray 03/09/22 07:35 Impression: Atherosclerosis. Laboratory Results WBC 5.2 10^3/uL (4.0-10.0) 03/09/22 07:30 RBC 4.05 10^6/uL (4.1-5.3) L 03/09/22 07:30 Hgb 11.7 g/dL (11.5-15.3) 03/09/22 07:30 Hct 38.4 % (37.0-47.0) 03/09/22 07:30 MCV 94.8 fl (81-99) 03/09/22 07:30 MCH 28.9 pg (28.0-34.0) 03/09/22 07:30 MCHC 30.5 g/dL (30.0-36.0) 03/09/22 07:30 RDW 13.2 % (12.1-15.1) 03/09/22 07:30 Plt Count 202 10^3/cmm (130-400) 03/09/22 07:30 MPV 11.8 fL (7.4-10.4) H 03/09/22 07:30 Neut % (Auto) 56.3 % 03/09/22 07:30 Lymph % (Auto) 29.8 % 03/09/22 07:30 [place] % (Auto) 8.5 % 03/09/22 07:30 Eos % (Auto) 4.6 % 03/09/22 07:30 Baso % (Auto) 0.6 % 03/09/22 07:30 Neut # (Auto) 2.91 10^3/uL (1.8-7.7) 03/09/22 07:30 Lymph # (Auto) 1.5 10^3/uL (0.8-4.8) 03/09/22 07:30 [place] # (Auto) 0.4 10^3/uL (0.2-0.9) 03/09/22 07:30 Eos # (Auto) 0.2 10^3/uL (0.0-0.8) 03/09/22 07:30 Baso # (Auto) 0.0 10^3/uL (0.0-0.1) 03/09/22 07:30 Nucleated RBC % (auto) 0 % 03/09/22 07:30 Nucleated RBCs # 0.0 /100WBC 03/09/22 07:30 PT 15.10 SECONDS (12.1-14.9) H 03/09/22 07:30 INR 1.16 (0.8-1.2) 03/09/22 07:30 APTT 29.8 SECONDS (23.9-36.7) 03/09/22 07:30 Sodium 138 mmol/L (136-145) 03/09/22 07:30 Potassium 4.1 mmol/L (3.5-5.1) 03/09/22 07:30 Chloride 106 mmol/L (98-107) 03/09/22 07:30 Carbon Dioxide 23 mmol/L (22-29) 03/09/22 07:30 Anion Gap 13.1 (5-19) 03/09/22 07:30 BUN 20 mg/dL (8-23) 03/09/22 07:30 Creatinine 1.0 mg/dL (0.5-0.9) H 03/09/22 07:30 GFR Calculation Not Reportable 03/09/22 07:30 Glucose 107 mg/dL (65-115) 03/09/22 07:30 Calculated Osmolality 289 mOsm/kg (285-295) 03/09/22 07:30 Calcium 8.9 mg/dL (8.5-10.5) 03/09/22 07:30 Total Bilirubin 0.2 mg/dL (0.15-1.2) 03/09/22 07:30 AST 16 U/L (0-32) 03/09/22 07:30 ALT 12 U/L (0-33) 03/09/22 07:30 Alkaline Phosphatase 89 U/L (35-105) 03/09/22 07:30 Troponin T Baseline 16 ng/L (0-10) H 03/09/22 07:30 Troponin T 120 Minute 15.96 ng/L (0-10) H 03/09/22 08:57 Delta Troponin T -0.04 ABS# (0-10) L 03/09/22 08:57 Total Protein 7.0 g/dL (6.6-8.7) 03/09/22 07:30 Albumin 4.0 g/dL (3.5-5.2) 03/09/22 07:30 Globulin 3.0 g/dL (1.3-4.6) 03/09/22 07:30 Urine Color Yellow (Yellow) 03/09/22 07:54 Urine Appearance Hazy (CLEAR) A 03/09/22 07:54 Urine pH 5 (5-7) 03/09/22 07:54 Ur Specific [place] 1.020 (1.005-1.030) 03/09/22 07:54 Urine Protein Neg (Negative) 03/09/22 07:54 Urine Glucose (UA) Norm (Normal) 03/09/22 07:54 Urine Ketones Negative (Negative) 03/09/22 07:54 Urine Blood Neg (Negative) 03/09/22 07:54 Urine Nitrate Positive (Negative) H 03/09/22 07:54 Urine Bilirubin Neg (Negative) 03/09/22 07:54 Urine Urobilinogen Norm mg/dL (Negative) 03/09/22 07:54 Ur Leukocyte Esterase Negative (Negative) 03/09/22 07:54 Urine RBC 0-4 /hpf (0-2) H 03/09/22 07:54 Urine WBC 25-40 /hpf (0-5) H 03/09/22 07:54 Ur Squamous Epith Cells 0-4 /hpf (0-5) H 03/09/22 07:54 Amorphous Sediment Not Reportable 03/09/22 07:54 Urine Bacteria 4+ /hpf (NONE) H 03/09/22 07:54 Discharge Plan Discharge Patient Disposition: Home Clinical Impression: Atypical chest pain, Cystitis Condition: Stable Prescriptions: No Action citalopram 40 mg tablet 40 mg PO DAILY cyanocobalamin (vitamin B-12) 1,000 mcg/mL solution 1,000 mcg IM Q30D oxycodone 30 mg tablet 30 mg PO Q4H PRN (Reason: Pain) albuterol sulfate 90 mcg/actuation HFA aerosol inhaler 2 puff INHALATION Q6H PRN (Reason: Shortness Of Breath) Vitron-C 65 mg iron- 125 mg Tablet,Delayed Release (Dr/Ec) 1 tab PO DAILY potassium chloride 20 mEq Tablet Extended Release 20 meq PO DAILY PRN (Reason: WITH LASIX) furosemide 20 mg tablet 20 mg PO DAILY PRN (Reason: Edema) levothyroxine [Euthyrox] 100 mcg tablet 100 mcg PO DAILY cholecalciferol (vitamin D3) [Vitamin D3] 25 mcg (1,000 unit) Capsule 25 mcg PO DAILY alendronate 70 mg Tablet 70 mg PO Q7D Rx Instructions: on Saturdays diltiazem HCl 240 mg capsule,extended release 24hr 240 mg PO DAILY Aspir-81 81 mg Tablet,Delayed Release (Dr/Ec) 81 mg PO DAILY oxycodone 15 mg tablet 15 mg PO Q4H PRN (Reason: Pain) simvastatin 20 mg tablet 20 mg PO QPM topiramate 100 mg tablet 100 mg PO BID Discharge Orders: Discharge ED (Routine); Ordered 03/09/22 Ordered By: Lobo Palacios Referrals: Bruce Pal M.D [Primary Care Provider] - Discharge Diet: Usual diet Discharge Activity: Limit activity as instructed Patient Instructions: Opioid Safety, Pain Management Activity Restrictions/Additional Instructions: You were seen today for chest pain. Your EKG and laboratory tests were all normal. We will set you up for a Lexiscan sestamibi stress test as an outpatient. Incidental finding you had a mild bladder infection you were prescribed antibiotics for that. Would recommend that you continue to take a baby aspirin daily avoid exertional activities if you have recurring chest pain return to the emergency room Coding Level of Care Code ED Mechanical Insulator for Clarence Fwyosvany Exam Comprehensive
[2022-03-09 08:39] LABS: Add Urine Culture? Yes; Add Urine Microscopic? YES; Bacteria Urine 4+ /hpf; Bilirubin Urine Neg (Negative); Blood Urine Neg (Negative); Glucose Urine UA Norm (Normal); Ketones Urine Negative (Negative); Leukocyte Esterase Urine Negative (Negative); Nitrate Urine Positive (Negative); Protein Urine Neg (Negative); RBC Urine 0-4 /hpf (0-2); Squamous Epithelial Cell Urine 0-4 /hpf (0-5); Urine Appearance Hazy (CLEAR); Urine Color Yellow (Yellow); Urobilinogen Urine Norm (Negative); WBC Urine 25-40 /hpf (0-5); pH Urine 5 (5-7)
--- NOTE | 2022-03-09 09:36 | ECG_ITS ---
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 Measurements Intervals [place] Rate: 60 P: 49 PA: 176 QRS: 32 QRSD: 80 T: 9 QT: 371 QTc: 372 Interpretive Statements SINUS RHYTHM NONSPECIFIC T-WAVE ABNORMALITY Compared to ECG 03/09/2022 07:44:04 No significant changes Electronically Signed On 03-09-2022 17:02:36 PRODUCTION TEAM MANAGER by Honey Pratt M.D. [id number]
[2022-03-09 09:41] LABS: Troponin 5 2HR 15.96 ng/L (0-10); Troponin 5 2HR Delta -0.04 ABS# (0-10)
--- NOTE | 2022-03-20 13:13 | DCPLANNER ---
Addendum entered by Isis Jonas 05/04/22 07:39: Patient had a follow up appointment for an outpatient stress test - patient did not attend appointment. Addendum entered by Isis Jonas 03/21/22 12:07: Patient has a follow up appointment scheduled for Saturday, April 25, 2022 at 9:45 for a stress test. Centralized scheduling will call patient with appointment information. Original Note: manager intel had message to schedule an outpatient stress test for patient. manager intel faxed signed order to centralized scheduling, who will trice patient with appointment information.
== END 2022-03-09 11:29 | disposition home or self-care (01) ==
PROVIDERS: Nurse Practitioner Family; Emergency Provider Family Medicine; PCP Internal Medicine
DX: R07.89 Other chest pain (principal); N30.90 Cystitis, unspecified without hematuria; Z79.82 Long term (current) use of aspirin; Z85.3 Personal history of malignant neoplasm of breast; I10 Essential (primary) hypertension
CPT/HCPCS: 71045; 80053; 81001; 84484; 85025; 85610; 85730; 87077; 87086; 87186; 93005; 99285

== ENCOUNTER → 2022-03-30 11:52 | Outpatient (BNVA) | payer MEDICARE, OTHER, SELFPAY | PROVIDERS: PCP Internal Medicine; Visit Provider Nurse Practitioner Family | DX: R39.9 Unspecified symptoms and signs involving the genitourinary system (principal); N39.0 Urinary tract infection, site not specified; R30.0 Dysuria | CPT/HCPCS: 81000; 87086 ==

== ENCOUNTER 2022-04-21 09:24 | Emergency (ER) | payer MEDICARE, OTHER, SELFPAY ==
[2022-04-21 09:29] VITALS: BP 139/77; PULSE 60; RESP 16; TEMP 36.7; O2SAT 96
--- NOTE | 2022-04-21 09:44 | ED_ITS ---
HPI - Ear Problem General: Chief complaint: Ear Stated complaint: left ear pain Time Seen by Provider: 04/21/22 09:33 History of Present Illness: 67-year-old female with left ear pain. States she went to urgent care approximately 1 month ago and was diagnosed with an ear infection and perforated tympanic membrane. She states that since then her pain has substantially decreased in the left ear. Last night she was using a tweezers to take out a piece of cotton that she had put in her ear. She woke up this morning with blood on the pillow which concerned her and prompted her to come to the emergency department. Denies fevers, sweats, chills, pain in her unaffected ear. She says she has baseline hearing loss of both ears but her hearing in her left ear has been particularly impaired x1 month. No acute changes. No numbness or tingling in the face. Associated symptoms: Denies fever(s), headache(s) or neck pain Review of Systems General: Reports: 10 or more systems reviewed and unremarkable except in HPI and below Const: Denies: fever(s), chills or body aches Eyes: Denies: change in vision or blurry vision ENMT: Reports: change in hearing; Denies: throat pain, uvular edema, disequilibrium or nasal congestion Card: Denies: chest pain or palpitations Resp: Denies: dyspnea or productive cough GI: Denies: abdominal pain or nausea : Denies: flank pain or difficulty voiding Musc: Denies: neck pain or back pain Skin/Breast: Denies: rash or pruritus Neuro: Denies: headache(s) or numbness in extremities Psych: Denies: anxiety or depression PFS ED PFSH: Medical History Edema History of breast cancer History of nonmelanoma skin cancer Hypertension Pericardial effusion Surgical History H/O breast reconstruction H/O gastric bypass H/O knee surgery H/O mastectomy H/O neck surgery H/O: hysterectomy History of back surgery Social History Smoking and tobacco status: never smoked Alcohol intake: never Physical Exam Const: COMMON NORMALS: no acute distress and average body habitus HENMT: COMMON NORMALS: normocephalic, atraumatic, EAC's normal (Left s uperficial laceration/abrasion with dried blood.), TM's normal bilaterally, Normal nasal mucous membranes and turbinates present and moist oral mucous membranes HEAD & SCALP: normal to inspection, normocephalic and atraumatic FACE & SINUS: normal facial exam NOSE: Normal nasal mucous membranes and turbinates present EXTERNAL AUDITORY CANAL: EAC's normal (Left superficial laceration/abrasion with dried blood.) TYMPANIC MEMBRANE: TM's normal bilaterally THROAT: no uvular edema Neck/C-Spine: COMMON NORMALS: full ROM, no lymphadenopathy and no JVD Lymph: LYMPHATIC: no lymphadenopathy noted Chest: COMMONS NORMALS: normal inspection of the chest and normal palpation of entire chest wall Resp: COMMON NORMALS: normal respiratory effort and No retractions Cardio: COMMON NORMALS: no JVD GI: COMMON NORMALS: Normal to inspection, nondistended, normoactive bowel sounds present, Soft to palpation and non-tender PALPATION: Yes Soft to palpation : COMMON NORMALS: Yes no CVA tenderness and Yes normal external appearance BLADDER/KIDNEY EXAM: Yes no CVA tenderness Back/Pelvis: COMMON NORMALS: no CVA tenderness Extremity: COMMON NORMALS: normal to inspection and full ROM GENERAL: Yes normal exam except as noted Skin: COMMON NORMALS: no rashes or lesions noted and no jaundice GENERAL SKIN EXAM: no rashes or lesions noted Course Vital Signs: Vital signs: Vital Signs Temperature 98.0 F 04/21/22 09:29 Pulse Rate 107 H 04/21/22 09:55 Respiratory Rate 14 04/21/22 09:55 Blood Pressure 121/65 04/21/22 09:55 Pulse Oximetry 100 04/21/22 09:55 Oxygen Delivery Me thod 04/21/22 09:29 MDM - Ear Medical Decision Making 77-year-old female with likely traumatic tympanic membrane perforation left. Vitals nonactionable. Considered incorrectly treated acute Tony media, combined sensorineural and conductive hearing loss, acute otitis externa, referred TMJ pain, atypical vasculitis, others. Given presentation of symptoms and physical examination evidence points to external auditory canal laceration. Patient educated about findings during this encounter and told to follow-up with regular physician for ENT referral versus finding a ENT in her area. Differential Diagnosis Likely ruptured TM Discharge Plan Discharge Patient Disposition: Home Clinical Impression: Tympanic membrane perforation Condition: Stable Prescriptions: No Action cefdinir 300 mg capsule 300 mg PO BID 10 Days Qty: 20 0RF neomycin-polymyxin B-dexameth [Maxitrol] 3.5mg/mL-10,000 unit/mL-0.1 % drops,suspension 2 drp ophthalmic (eye) QID 7 Days Qty: 5 0RF Rx Instructions: Route-Ears to treat [employer]its [employer] with Ruptured Tympanic Membrane fluticasone propionate [Flonase Allergy Relief] 50 mcg/actuation spray,suspension 2 spray intranasal DAILY 14 Days Qty: 16 0RF Rx Instructions: administer into each nostril citalopram 40 mg tablet 40 mg PO DAILY cyanocobalamin (vitamin B-12) 1,000 mcg/mL solution 1,000 mcg IM Q30D oxycodone 30 mg tablet 30 mg PO Q4H PRN (Reason: Pain) albuterol sulfate 90 mcg/actuation HFA aerosol inhaler 2 puff INHALATION Q6H PRN (Reason: Shortness Of Breath) Vitron-C 65 mg iron- 125 mg Tablet,Delayed Release (Dr/Ec) 1 tab PO DAILY potassium chloride 20 mEq Tablet Extended Release 20 meq PO DAILY PRN (Reason: WITH LASIX) furosemide 20 mg tablet 20 mg PO DAILY PRN (Reason: Edema) levothyroxine [Euthyrox] 100 mcg tablet 100 mcg PO DAILY cholecalciferol (vitamin D3) [Vitamin D3] 25 mcg (1,000 unit) Capsule 25 mcg PO DAILY alendronate 70 mg Tablet 70 mg PO Q7D Rx Instructions: on Saturdays diltiazem HCl 240 mg capsule,extended release 24hr 240 mg PO DAILY Aspir-81 81 mg Tablet,Delayed Release (Dr/Ec) 81 mg PO DAILY oxycodone 15 mg tablet 15 mg PO Q4H PRN (Reason: Pain) simvastatin 20 mg tablet 20 mg PO QPM topiramate 100 mg tablet 100 mg PO BID Discharge Orders: Discharge ED (Routine); Ordered 04/21/22 Ordered By: Jean Marie Bradford Referrals: Jean Marie Bradford MD [Emergency Provider] - (Return to the emergency department for any increase in her symptoms. I recommend that you follow-up with your regular doctor in [place] for ruptured tympanic membrane for over a month for a referral to your ENT specialist of choice. You can also find an ENT specialist by googling ENT near me and picking a specialist in your community that is most convenient to you.) Discharge Diet: Usual diet Discharge Activity: Resume usual activity Patient Instructions: Ear Pain - Adult, Opioid Safety, Pain Management Coding Level of Care Code ED Tennis Professional for Clarence Medel
[2022-04-21 09:55] VITALS: BP 121/65; PULSE 107; RESP 14; O2SAT 100
== END 2022-04-21 09:57 | disposition home or self-care (01) ==
PROVIDERS: Emergency Provider General Practice
DX: H72.92 Unspecified perforation of tympanic membrane, left ear (principal); Z79.82 Long term (current) use of aspirin; Z85.3 Personal history of malignant neoplasm of breast; I10 Essential (primary) hypertension
CPT/HCPCS: 99282

== ENCOUNTER → 2022-05-02 12:54 | Outpatient (BNVA) | payer MEDICARE, OTHER, SELFPAY | PROVIDERS: Visit Provider Internal Medicine | DX: R07.89 Other chest pain (principal); I10 Essential (primary) hypertension; N39.0 Urinary tract infection, site not specified; R94.31 Abnormal electrocardiogram [ECG] [EKG]; Z85.3 Personal history of malignant neoplasm of breast; I31.39 Other pericardial effusion (noninflammatory); Z79.82 Long term (current) use of aspirin; R06.02 Shortness of breath | CPT/HCPCS: 99214 ==

== ENCOUNTER → 2022-05-30 15:11 | Outpatient (BNVA) | payer MEDICARE, OTHER, SELFPAY | PROVIDERS: Visit Provider Otolaryngology | DX: H66.90 Otitis media, unspecified, unspecified ear (principal) | CPT/HCPCS: 99203 ==

== ENCOUNTER 2022-05-31 09:52 | Outpatient (CLI) | payer MEDICARE, OTHER, SELFPAY ==
--- NOTE | 2022-05-31 10:15 | USCV_ITS ---
Mary Kumar Age: 77 Gender: F : 1945 Exam Date: 05/31/2022 10:14 Ordering Phys: Bruce Pal M.D ([email or web address]) Technologist: Mauro Silveira [place] [facility] [place]: SOB BP: 125 / 75 HR: 57 Rhythm: Sinus Technical Quality: Adequate MEASUREMENTS (Male / Female) Normal Values 2D ECHO LV Diastolic Diameter PLAX 4.7 cm 4.2 - 5.9 / 3.9 - 5.3 cm LV Systolic Diameter PLAX 3.2 cm IVS Diastolic Thickness 1.0 cm 0.6 - 1.0 / 0.6 - 0.9 cm IVS Systolic Thickness 1.8 cm LVPW Diastolic Thickness 1.4 cm 0.6 - 1.0 / 0.6 - 0.9 cm LVPW Systolic Thickness 1.7 cm LVOT Diameter 2.0 cm LV Ejection Fraction 2D Teich 47.9 % LV Ejection Fraction MOD 2C 58.0 % LV Ejection Fraction 2C AL 57.7 % LA Diameter 4.4 cm M-MODE Aortic Annulus Diameter 3.5 cm LA Ao Ratio MM 1.4 MV E Point Septal Separation 0.9 cm DOPPLER AV Peak Velocity 124.0 cm/s LVOT Peak Velocity 85.0 cm/s AV Area Cont Eq vti 3.1 cm squared AV Area Cont Eq pk 2.2 cm squared MV Area PHT 5.0 cm squared Mitral E to A Ratio 1.0 MV E' Velocity 42.5 cm/s Mitral E to MV E' Ratio 10.1 Mitral E to LV E' Lateral Ratio 9.8 Mitral E to LV E' Septal Ratio 10.5 TR Peak Velocity 195.7 cm/s TR Peak Gradient 15.3 mmHg TV Peak E Velocity 130.0 cm/s Right Atrial Pressure 3.0 mmHg Pulmonary Artery Systolic Pressu 18.3 mmHg RV Acceleration Time 0.1 s FINDINGS Left Ventricle Left ventricle is normal in size. LV systolic function is normal with EF of 60 to 65%. No regional wall motion abnormalities are seen. Right Ventricle Normal in size and function Right Atrium Normal in size Left Atrium Normal size Mitral Valve Structurally normal mitral valve. Trace mitral regurgitation. Aortic Valve Aortic valve is thickened. No significant stenosis or regurgitation. Tricuspid Valve Mild tricuspid regurgitation. Pulmonary artery systolic pressure is normal. Pulmonic Valve Not well-visualized Pericardium Normal Aorta Normal in size IVC Appears to be normal CONCLUSIONS LV systolic function is normal with EF of 60 to 65%. Trace mitral regurgitation Mild tricuspid regurgitation Compared to prior echocardiogram from 2020, no significant changes are seen Bruce Pal MD (Electronically Signed) Final Date: 10 June 2022 12:32 S
== END 2022-05-31 09:53 | disposition home or self-care (01) ==
PROVIDERS: PCP Internal Medicine; Visit Provider Internal Medicine
DX: R06.02 Shortness of breath (principal); I08.1 Rheumatic disorders of both mitral and tricuspid valves
CPT/HCPCS: 93306

== ENCOUNTER → 2022-07-02 11:26 | Outpatient (BNVA) | payer MEDICARE, OTHER, SELFPAY | PROVIDERS: PCP Internal Medicine; Visit Provider Otolaryngology | DX: R51.9 Headache, unspecified (principal); R09.81 Nasal congestion; H69.83 Other specified disorders of Eustachian tube, bilateral | CPT/HCPCS: 99213 ==

== ENCOUNTER 2022-07-03 07:17 | Outpatient (CLI) | payer MEDICARE, OTHER, SELFPAY ==
[2022-07-03 07:31] VITALS: BMI 27.5
--- NOTE | 2022-07-03 07:53 | ECG_ITS ---
[facility] Test Date: 2022-07-03 Pat Name: Mary Kumar Department: Room: Gender: Female Drain Layer: : 1945 Requested By: Bruce Pal Order Number: [id number] Bruna MD: Bruce Pal M.D. Interpretive Statements NAME OF STUDY: LEXISCAN SESTAMIBI STRESS TEST INDICATION: [Chest Pain, ] Procedure: At the baseline, the blood pressure was 139/72 mmHg with a heart rate of 51 bpm. The electrocardiogram showed normal sinus bradycardia, normal axis with normal ST and T's. The Lexiscan was infused over a period of 20 seconds. A total of 0.4 mg of Lexiscan was infused. The stress phase was continued for a total of 5 minutes. Heart rate was at the end of stress phase was 63 bpm and a blood pressure of 150/66 mmHg. The EKG at the peak infusion revealed normal sinus rhythm with no significant ST-T wave changes. Sestamibi was injected 20 seconds after the Lexiscan infusion. Blood pressure at the end of recovery phase was 139/63 mmHg with a heart rate of 59 bpm. Conclusion: 1. Normal EKG response to Lexiscan infusion 2. No Lexiscan induced chest pain or cardiac arrhythmia. 3. Normal blood pressure and heart rate response. 4. Sestamibi/sestamibi perfusion scan pending; see separate report. Electronically Signed On 07-21-2022 20:53:11 CDT by Bruce Pal M.D. [id number]
--- NOTE | 2022-07-03 07:54 | NMCV_ITS ---
NM myra perf SPECT r/s* [id number] Mary Kumar Age: 77 Gender: F : 1945 Exam Date: 07/03/2022 08:20 Ordering Phys: Bruce Pal M.D ([email or web address]) Technologist: DANIEL Solano Exam Location: [facility] Indications: CHEST PAIN STRESS TEST Please see separate stress test report in [facility] for full findings IMAGE PROTOCOL Rest/Stress 1 Lexiscan Day Radiopharmaceutical Dose (mCi) Administration Site Administered by Rest: Tc-99m 10.9 IV DANIEL Apple Sestamibi Stress:Tc-99m 32.6 IV DANIEL Apple Sestamibi Rest: 03-Jul-2022 60 Discovery 630 Stress: 03-Jul-2022 30 Discovery 630 0.4mg Lexiscan. Images obtained in supine and prone position. SPECT RESULTS Technical Quality: Excellent Raw Data Analysis: Normal Image Corrections: No attenuation or motion correction applied Summed Stress Score: 12 Summed Rest Score: 12 Summed Difference Score: 2 PERFUSION FINDINGS There is a medium sized, partially reversible perfusion defect noted in the inferior and inferolateral cruz. 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 FUNCTIONAL RESULTS (calculated via Gated SPECT) Stress Image LV EF (%): 72 Stress EDV (mL):83 TID: 1.16 Stress ESV (mL):23 FUNCTIONAL FINDINGS: There is normal left ventricular systolic function. IMPRESSIONS 1. 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 2. LV systolic function is normal. Bruce Pal MD (Electronically Signed) Final Date: 05 Jul 2022 17:35 S
[2022-07-03] MEDS: regadenoson 0.4 Mg/5 ml Syringe IVP (09:22)
[2022-07-03 09:48] VITALS: BP 139/63; PULSE 59
== END 2022-07-03 07:18 | disposition home or self-care (01) ==
LOC: CDL 07:19
PROVIDERS: PCP Internal Medicine; Visit Provider Internal Medicine
DX: R07.9 Chest pain, unspecified (principal)
CPT/HCPCS: 36415; 78452; 93017; 96374; A9500; J2785

== ENCOUNTER 2022-08-03 05:41 | Outpatient (CLI) | payer MEDICARE, OTHER, SELFPAY ==
[2022-08-03] VITALS (29 sets, daily range): BP systolic 137–195; BP diastolic 63–91; PULSE 54–63; RESP 10–23; TEMP 37.1; O2SAT 95–100; BMI 27.9
--- NOTE | 2022-08-03 06:00 | XACV_ITS ---
Exam Room: [facility] Ht: 173 cm Wt: 83 kg BSA: 2.02 m2 Gender: Female : 1945 Any Known Allergies: No known allergies Exam Priority: Routine Procedure(s): Procedure Description: Diagnostic procedure Procedure Description: Left Heart Catheterization Procedure Description: Left ventriculography Procedure Description: Coronary Angiography Diagnostic Cath Status: Elective Diagnostic Findings * INDICATION: 77-year-old woman who has been having worsening dyspnea on exertion, chest discomfort and had an abnormal stress test. She is here for coronary angiogram with possible percutaneous coronary intervention. Risks and benefits of the procedure have been discussed with the patient. * No significant disease noted in the Left Main, Left Anterior Descending, Right, or Circumflex coronary arteries. * Coronary angiography shows right dominance. Conclusions 1. No significant disease noted in the Left Main, Left Anterior Descending, Right, or Circumflex coronary arteries. 2. Normal left ventricular systolic function. Ejection fraction of 65%. Recommendations * Aggressive risk factor modification. * Outpatient cardiology follow up in 4 weeks. Interventional RX Recommendation: medical therapy and/or counseling Diagnostic RX Recommendation: medical therapy and/or counseling Anticoagulation: Heparin Ventriculography Ejection Fraction: 65.0 % Pressures Phase:Rest AO : 146 / 66 ( 96 ) @ 8:42:00 AM 113 / 69 ( 90 ) @ 8:44:00 AM 156 / 67 ( 105 ) @ 8:48:00 AM 156 / 67 ( 105 ) @ 8:48:00 AM LV : 153 / 10 / 15 @ 8:47:00 AM 156 / -10 / 17 @ 8:48:00 AM 157 / -10 / 18 @ 8:48:00 AM Valves Phase:DefaultPhase AV : 1.0 @ 7:55:18 AM 1.0 @ 7:55:18 AM AV Mean Gradient: 0.0 @ 7:55:18 AM Clinical Evaluation EBL: 5mL-10mL Procedural Details Procedure Consent Obtained. Pre-Procedure Time Out. Identified patient by full name and date of as verbalized by the patient/guarantor. Does the consent match the physician's order: Yes. Accurate & Complete Informed Consent: Yes. Inpatient/Outpatient History & Physical on Chart: Yes. If H&P is completed, is and addenduem needed: No; If yes, is the addendum complete: N/A. Visualize and Verify Site with Patient/Guarantor: N/A. Relevant Radiology Images available: Yes. Pre-op teaching completed and patient verbalized understanding. The risks, benefits, and alternatives of sedation and/or procedure were discussed by physician. The patient agrees to continue. Procedure started. [facility] Clinical Fraility Score: 3: Managing Well. Ruling Machine Feeder Indications: Worsening Angina. Chest Pain Symptom Assessment: Typical Angina Symptoms. Correct patient, site and procedure confirmed by cath team. Current diagnosis: Chest Pain. PERRLA. Strong, equal hand certified nursing assistant instructor bilaterally. Lungs clear x 5 lobes. IV Site on Arrival: 20 gauge in the right anticubital. IV Fluids: 0.9% NaCl at KVO. 0 mL infused prior to laborer hide house. Pre Procedural Pulses: bilateral dorsalis pedis was 1+. Pre Procedural Pulses: bilateral posterior tibial was Doppled. Pre Procedural Pulses: bilateral radial was 3+. Oxygen started at 2liters/min via nasal canula. right groin was prepped with chloroprep then draped in the usual sterile fashion. right radial was prepped with chloroprep then draped in the usual sterile fashion. Physician notified. Baseline sample Acquired. HR: 0 BPM. Physician arrived. Physician scrubbed in. Immediate Pre-Procedure Time Out. Correct Patient: Yes; Correct Procedure: Yes; Correct Site: Yes; Correct Patient Position: Yes; Correct Supplies: Yes; Dried Flammable Prep: Yes; Blood Products Available: N/A;. Lidocaine 1% infiltrated to the right radial. Arterial access obtained. A 5 south african TIG catheter in over wire. Multiple views taken of left coronary artery. Catheter redirected to the RCA. Multiple views taken of right coronary artery. Catheter removed over the exchange wire. Current Diagnosis : Chest Pain. A 5 south african Angled Pig catheter in over wire. EDP Sample taken: LV 153/10,15; HR: 66 BPM; SpO2: 98%. LV gram performed in WEBB @ 10 mL/second for a total of 30 mL. EDP Sample taken: LV 156/-11,17; HR: 67 BPM; SpO2: 98%. Pullback taken: LV 157/-11,18; AO 156/67(105); Mean: 0mmHg, Peak to Peak: 1mmHg, SEP: 18sec/min; HR: 67 BPM; SpO2: 98%. Catheter removed over the exchange wire. Physician review of cine films. Physician scrubbed out. A TR Band was successful obtaining hemostatsis at the Right Radial artery insertion site. Post Procedure: Pulses reassessed and unchanged. PERRLA. Strong, equal hand certified nursing assistant instructor bilaterally. No VTE prophylaxis required. Medication's Wasted: Lidocaine 1% = 2 mL. Medication's Wasted: Nitro = 49.8 mg. Medication's Wasted: Heparin = 1000 units. Medication's Wasted: Other = Fentanyl 25mcg Versed 1 mg. Total IV fluids: 26 mL. Complications: None. Estimated blood loss: 5mL-10mL. Responsiveness - Normal response to verbal stimuli; alert and oriented, PERRLA. Airway - Unaffected, no intervention required; spontaneous ventilation. Circulation: W/N/L, pulses unchanged. Nausea/Vomiting: No. Vital chart was stopped. Procedure completed. Patient transferred by wheelchair to 1st floor. Access Site Site: Right Radial artery Sheath Size: 6 Fr Hemostasis Method: TR Band Hemostasis Success: Successful Procedure Medications Start: 7:32 AM Stop: 7:32 AM Medication: Versed Amount: 1 mg Route: I.V. Start: 7:32 AM Stop: 7:32 AM Medication: Fentanyl Amount: 50 mcg Route: I.V. Start: 7:38 AM Stop: 7:38 AM Medication: Versed Amount: 1 mg Route: I.V. Start: 7:38 AM Stop: 7:38 AM Medication: Fentanyl Amount: 25 mcg Route: I.V. Start: 7:39 AM Stop: 7:39 AM Medication: Nitrogylcerin Amount: 200 mcg Route: I.A. Start: 7:39 AM Stop: 7:39 AM Medication: Versed Amount: 1 mg Route: I.V. Start: 7:47 AM Stop: 7:47 AM Medication: Heparin Amount: 5000 units Route: I.V. I, the attending physician, have reviewed and verified all procedure medications. Yes, all medications given per verbal order History/Risk Factors Hypertension: Yes Dyslipidemia: Yes Peripheral Arterial Disease (PAD): No Myocardial Infarction (IA): No Obesity: No Tobacco Use: Never Prior Interventions PCI: No CABG: No Valve Surgery: No Report Signatures Finalized by Bruce Pal MD on 08/12/2022 01:12 PM
[2022-08-03 06:35] LABS: Basophils % 0.7 %; Eosinophils # 0.1 10^3/uL (0.0-0.8); Eosinophils % 2.4 %; Hematocrit 40.1 % (37.0-47.0); Hemoglobin 12.7 g/dL (11.5-15.3); Lymphocytes # 1.5 10^3/uL (0.8-4.8); Lymphocytes % 25.2 %; Mean Corpuscular HGB Conc 31.7 g/dL (30.0-36.0); Mean Corpuscular Hemoglobin 30.3 pg (28.0-34.0); Mean Corpuscular Volume 95.7 fl (81-99); Mean Platelet Volume 11.6 fL (7.4-10.4); Monocytes # 0.5 10^3/uL (0.2-0.9); Monocytes % 8.2 %; Neutrophils # 3.63 10^3/uL (1.8-7.7); Neutrophils % 63.2 %; Nucleated Red Blood Cells % 0 %; Platelet Count 179 10^3/cmm (130-400); Red Blood Count 4.19 10^6/uL (4.1-5.3); Red Cell Distribution Width 15.5 % (12.1-15.1); White Blood Count 5.8 10^3/uL (4.0-10.0)
[2022-08-03 06:48] LABS: Anion Gap 16.2 (5-19); Blood Urea Nitrogen 22 mg/dL (8-23); Carbon Dioxide 23 mmol/L (22-29); Chloride 109 mmol/L (98-107); Glucose 89 mg/dL (65-115); Osmolality Calculated 301 mOsm/kg (285-295); Potassium 4.2 mmol/L (3.5-5.1); Sodium 144 mmol/L (136-145)
[2022-08-03] MEDS: diphenhydrAMINE 50 mg Capsule PO (06:52)
--- NOTE | 2022-08-03 07:27 | P.HP_ITS ---
Same Day Surgery H&P Indication for Procedure/HPI DATE OF PROCEDURE: August 03, 2022 CHIEF COMPLAINT/INDICATIONFOR SURGICAL PROCEDURE: Chest pain/dyspnea on exertion/abnormal stress test PREOP DIAGNOSIS: Chest pain/dyspnea on exertion/abnormal stress test PLANNED PROCEDURE: Operation Date: 08/03/22 07:00 Proposed Procedures p [facility] 67936,R94.39(Left) - Bruce Pal M.D Possible percutaneous coronary intervention 77-year-old woman who has been having worsening dyspnea on exertion, chest discomfort and had an abnormal stress test. She is here for coronary angiogram with possible percutaneous coronary intervention. Risks and benefits of the procedure have been discussed with the patient. Medications/Allergies* Home Medications Medication Instructions Recorded Confirmed Type albuterol sulfate 90 mcg/actuation 2 puff inhalation Q6H PRN 11/04/19 08/02/22 History aerosol inhaler Shortness Of Breath citalopram 40 mg tablet 40 mg PO DAILY 11/04/19 08/02/22 History cyanocobalamin (vitamin B-12) 1,000 mcg IM Q30D 11/04/19 08/02/22 History 1,000 mcg/mL injection solution iron,carbonyl 65 mg-vitamin C 125 1 tab PO DAILY 11/04/19 08/02/22 History mg tablet,delayed release (Vitron-C) oxycodone 30 mg tablet 30 mg PO Q4H PRN Pain 11/04/19 08/02/22 History potassium chloride 20 mEq 20 meq PO DAILY PRN WITH LASIX 11/04/19 08/02/22 History tablet,extended release alendronate 70 mg tablet 70 mg PO Q7D 09/23/20 08/02/22 History cholecalciferol (vitamin D3) 25 25 mcg PO DAILY 09/23/20 08/02/22 History mcg (1,000 unit) capsule (Vitamin D3) levothyroxine 100 mcg tablet 100 mcg PO DAILY 09/23/20 08/02/22 History (Euthyrox) furosemide 20 mg tablet 20 mg PO DAILY PRN Edema 01/06/21 08/02/22 History aspirin 81 mg tablet,delayed 81 mg PO DAILY 03/09/22 08/02/22 History release diltiazem HCl 240 mg 240 mg PO DAILY 03/09/22 08/02/22 History capsule,extended release 24 hr simvastatin 20 mg tablet 20 mg PO QPM 03/09/22 08/02/22 History topiramate 100 mg tablet 100 mg PO BID 03/09/22 08/02/22 History fluticasone propionate 50 2 spray intranasal DAILY PRN 08/02/22 08/02/22 History mcg/actuation nasal Allergy Symptoms spray,suspension Allergies/Adverse Reactions Allergy/AdvReac Type Severity Reaction Status Date / Time No Known Allergies Allergy Verified 08/03/22 07:28 Current Medications: Generic Name Dose Route Start Last Admin Trade Name Lachelle PRN Reason Stop Dose Admin Sodium Chloride 1,000 mls @ 50 mls/hr 08/03/22 06:00 08/03/22 06:52 Sodium Chloride 0.9% IV 08/04/22 01:59 Not Given .Q20H ONE Pertinent History/Comorbid Conditions* Medical History (Updated 07/02/22 @ 11:45 by Estuardo Floyd MD) Edema History of breast cancer History of nonmelanoma skin cancer History of nonmelanoma skin cancer Hypertension Pericardial effusion Surgical History (Updated 10/02/20 @ 23:28 by Honey Pratt MD) H/O breast reconstruction H/O gastric bypass H/O knee surgery H/O mastectomy H/O neck surgery H/O: hysterectomy History of back surgery Social History Smoking and tobacco status: never smoked Alcohol intake: never Substance/Drug Use: never Pertinent Exam Findings alert, oriented x 3, clear to auscultation bilaterally and regular rate & rhythm Conscious Sedation Assessment PATIENT ASSESSED PRIOR TO SEDATION, WITH NO CHANGE NOTED: Yes AIRWAY EVAL/ANESTHESIA PLAN: normal airway, ASA III, Local Anesthesia, Risks, benefits & alternatives of sedation and/or procedure discussed and Patient agrees to continue as planned ADDITIONAL INFORMATION: Moderate sedation Recommendations Surgery/Procedure today (Left heart cath with possible percutaneous coronary intervention) Coding Level of Care Code Acute Code for Chg Fwd Diagnoses
--- NOTE | 2022-08-03 08:24 | PC.NURSE ---
received from cardiac prestressed concrete laborer at 0800 via w/c.sr on monitor.alert and awake and oriented x 4.denies pain at present.right wrist with tr band on and inflated.right hand is warm to touch and with brisk capillary refill.palpable pulse noted distal to tr band.no hematoma noted .pt instructed in activity restrictions s/p radial artery procedure...and instructed to notify staff for any bleeding,pain,numbness,sob,or for any concerns at all.pt verb understanding of instructions
--- NOTE | 2022-08-03 13:44 | PC.NURSE ---
tr band slowly deflated and eventually removed at 1320.no hematoma noted.right hand and arm remain warm to touch and with brisk capillary refill.palpable radial pulse remains.site dressed with 2x2 gauze and secured with biocclusive drsg.pt instructed in activity restrictions s/p tr band removal...and to notify staff for any beeding,pain,numbness..or for any concerns at all.pt verb understanding of instructions
--- NOTE | 2022-08-03 14:44 | PC.NURSE ---
discharge instructions given and explained.pt verb understanding.prescriptions phoned in to [facility] per pt request (and e-filed to [facility] was cancelled).discharged via w/v to exit at this time
== END 2022-08-03 14:51 | disposition home or self-care (01) ==
LOC: CCL 05:42 → CSU 07:30
PROVIDERS: PCP Internal Medicine; Visit Provider Internal Medicine
DX: R94.39 Abnormal result of other cardiovascular function study (principal); R07.9 Chest pain, unspecified; R06.09 Other forms of dyspnea; Z79.891 Long term (current) use of opiate analgesic; Z79.82 Long term (current) use of aspirin; I10 Essential (primary) hypertension; E78.5 Hyperlipidemia, unspecified
CPT/HCPCS: 36415; 80048; 85025; 93458; 96365; 99152; 99153; C1769; C1887; C1894; J1644; J2250; J3010; J3490; J7030; Q0163; Q9967

== ENCOUNTER → 2022-08-06 09:46 | Outpatient (BNVA) | payer MEDICARE, OTHER, SELFPAY | PROVIDERS: PCP Internal Medicine; Visit Provider Otolaryngology | DX: R09.81 Nasal congestion (principal); H69.81 Other specified disorders of Eustachian tube, right ear; R51.9 Headache, unspecified | CPT/HCPCS: 99213 ==

== ENCOUNTER → 2022-08-15 09:54 | Outpatient (BNVA) | payer MEDICARE, OTHER, SELFPAY | PROVIDERS: PCP Internal Medicine; Visit Provider Nurse Practitioner Family | DX: I10 Essential (primary) hypertension (principal); E03.9 Hypothyroidism, unspecified; Z79.82 Long term (current) use of aspirin | CPT/HCPCS: 36415; 80048; 99214 ==

== ENCOUNTER 2022-08-16 14:22 | Outpatient (CLI) | payer MEDICARE, OTHER, SELFPAY ==
--- NOTE | 2022-08-16 15:00 | CT_ITS ---
WS: [id number] CT SINUSES TECHNIQUE: Noncontrast CT of the paranasal sinuses with coronal and sagittal reformatted images. CLINICAL INFORMATION: examination of the sinuses. Sinusitis. DLP: 387.[address] scans at [facility] use at least one of these dose optimization techniques: automated e xposure control; mA and/or kV adjustment per patient size (includes targeted exams where dose is matc hed to clinical indication); or iterative reconstruction. FINDINGS: Mild LEFT to RIGHT nasal deviation with a rightward directed spur. Nasal septal deviation measures 4 mm. Paranasal sinuses and mastoid air cells are well aerated. Mild narrowing of the ostiomeatal units bilaterally RIGHT greater than LEFT. Trace mucosal thickening ethmoid air cells. Maxillary sinuses a nd sphenoid sinuses are patent. Frontal sinuses are patent. Bilateral Agger Nasi air cells. Normal parapharyngeal fat. Normal posterior nasopharynx. Intracranial vascular calcification. Partial ly visualized intracranial contents appear normal for age. Mild pannus formation at the C1-[address]/CT sinus wo con* [id number] IMPRESSION: 1. Mild LEFT to RIGHT nasal deviation measuring 4 mm. 2. Paranasal sinuses are well aerated. 3. Bilateral Agger Nasi air cells. 4. Ostiomeatal units are patent with mild narrowing. 5. Mastoid air cells well aerated. 6. No other acute findings.
== END 2022-08-16 14:23 | disposition home or self-care (01) ==
PROVIDERS: PCP Internal Medicine; Visit Provider Otolaryngology
DX: J34.2 Deviated nasal septum (principal); R09.81 Nasal congestion; R51.9 Headache, unspecified
CPT/HCPCS: 70486

== ENCOUNTER → 2022-09-17 11:09 | Outpatient (BNVA) | payer MEDICARE, OTHER, SELFPAY | PROVIDERS: PCP Internal Medicine; Visit Provider Otolaryngology | DX: J34.2 Deviated nasal septum (principal); J34.3 Hypertrophy of nasal turbinates; R09.81 Nasal congestion; H69.83 Other specified disorders of Eustachian tube, bilateral | CPT/HCPCS: 99214; 99215 ==

== ENCOUNTER → 2022-09-27 10:44 | Outpatient (BNVA) | payer MEDICARE, OTHER, SELFPAY | PROVIDERS: PCP Internal Medicine; Visit Provider Nurse Practitioner Family | DX: L81.5 Leukoderma, not elsewhere classified (principal); L57.0 Actinic keratosis; L57.8 Other skin changes due to chronic exposure to nonionizing radiation; D22.5 Melanocytic nevi of trunk | CPT/HCPCS: 17000; 99213 ==

== ENCOUNTER → 2022-11-07 13:17 | Outpatient (BNVA) | payer MEDICARE, OTHER, SELFPAY | PROVIDERS: PCP Internal Medicine; Referring Provider Nurse Practitioner Family; Visit Provider Internal Medicine | DX: E03.9 Hypothyroidism, unspecified (principal); I10 Essential (primary) hypertension; G47.00 Insomnia, unspecified; Z79.890 Hormone replacement therapy | CPT/HCPCS: 36415; 84439; 84443; 99204 ==

== ENCOUNTER 2022-11-10 15:08 | Emergency (ER) | payer MEDICARE, OTHER, SELFPAY ==
[2022-11-10 15:14] VITALS: BP 134/79; PULSE 69; RESP 15; TEMP 36.4; O2SAT 96; BMI 28.8
[2022-11-10 16:49] VITALS: BP 159/75; PULSE 61; O2SAT 99
--- NOTE | 2022-11-10 17:08 | XRR_ITS ---
PROCEDURE INFORMATION: Exam: XR Pelvis Exam date and time: 11/10/2022 5:20 PM Age: 77 years old Clinical indication: Pelvic pain TECHNIQUE: Imaging protocol: Radiologic exam of the pelvis. Views: 1 or 2 view. COMPARISON: CT abdomen pelvis wo con [id number] 10/21/2021 1:04 PM FINDINGS: Bones/joints: No acute fracture or other acute osseous abnormality. No acute joint abnormality demonstrated. Soft tissues: The soft tissues are unremarkable as demonstrated. XR/XR pelvis 1-2V* [id number] IMPRESSION: No acute abnormality demonstrated.
--- NOTE | 2022-11-10 17:08 | XRR_ITS ---
PROCEDURE INFORMATION: Exam: XR Left Knee Exam date and time: 11/10/2022 5:24 PM Age: 77 years old Clinical indication: Pain; Knee; Left TECHNIQUE: Imaging protocol: Radiologic exam of the left knee. Views: 1 or 2 views. COMPARISON: No relevant prior studies available. FINDINGS: Bones/joints: Mild degenerative narrowing of the medial, lateral, and anterior joint compartments. Degenerative chondrocalcinosis in the menisci. Diffuse osteopenia noted. No acute fracture or other acute osseous abnormality. There is no joint effusion noted. Soft tissues: The soft tissues are unremarkable as demonstrated. XR/XR knee LT 1-2V [id number] IMPRESSION: 1. Mild tricompartmental degenerative change. 2. No acute abnormality demonstrated.
--- NOTE | 2022-11-10 17:08 | XRR_ITS ---
PROCEDURE INFORMATION: Exam: XR Left Hip Exam date and time: 11/10/2022 5:22 PM Age: 77 years old Clinical indication: Hip pain; Left hip TECHNIQUE: Imaging protocol: Radiologic exam of the left hip. Views: 2 or 3 views hip with pelvis when performed. COMPARISON: CT abdomen pelvis wo con [id number] 10/21/2021 1:04 PM FINDINGS: Bones/joints: No acute fracture or other acute osseous abnormality. No significant joint narrowing. No joint dislocation. No joint effusion noted. Soft tissues: The soft tissues are unremarkable as demonstrated. XR/XR hip LT 2-3V wo/w pel* [id number] IMPRESSION: 1. No acute abnormality demonstrated. 2. There is no interval change from the prior examination.
--- NOTE | 2022-11-10 17:08 | ED_ITS ---
HPI - Skin/Abscess/Foreign Bdy General: Chief complaint: Skin/Abscess/Foreign Body Stated complaint: left leg pain/lump Time Seen by Provider: 11/10/22 15:50 History of Present Illness: Patient is a 77-year-old female that presents to the emergency department with complaints of left pain. Patient denies falls or injuries. She states that she has had pain in the knee for 3 weeks but developed the left groin pain today. It is tender to palpation but she denies trauma. Patient denies motor or sensory deficits She denies nausea vomiting diarrhea, chest pain, shortness of breath, abdominal pain Associated symptoms: Deny chills, fever(s), nausea or vomiting Review of Systems General: Reports: 10 or more systems reviewed and unremarkable except in HPI and below Const: Denies: fever(s), chills, change in appetite, change in weight, fatigue or malaise Eyes: Denies: change in vision, eye discomfort, eye discharge or eye redness ENMT: Denies: throat pain, enlarged tonsils, odynophagia, hoarseness, ear or mastoid pain, ear discharge, change in hearing, tinnitus, nasal discharge, nasal congestion, post nasal drip or sinus pain Card: Denies: chest pain, palpitations, irregular heart rhythm, edema, dyspnea on exertion, orthopnea or leg pain with exertion Resp: Denies: dyspnea, productive cough, non-productive cough, wheezing, stridor or chest congestion GI: Denies: abdominal pain, nausea, vomiting, dysphagia, diarrhea, constipation, bloating, GI cramping or hematochezia : Denies: flank pain, difficulty voiding, dysuria, urinary frequency, urinary urgency, urinary hesitancy, oliguria or hematuria Musc: Denies: neck pain, back pain, extremity pain, joint pain, joint swelling, joint redness, joint warmth or muscle weakness Skin/Breast: Denies: rash, pruritus, erythema, photosensitivity or new lesions Neuro: Denies: headache(s), numbness in extremities, weakness in extremities, sensory changes, lack of coordination, difficulty walking, frequent falls, dizziness, confusion, Slurred speech present, difficulty communicating thoughts, seizure-like activity or involuntary movements Endo: Denies: polyuria, polydipsia or tired all the time Ronnie/Lymph: Denies: easy bruising or easy bleeding PFSH ED PFSH: Medical History Edema History of breast cancer History of nonmelanoma skin cancer History of nonmelanoma skin cancer Hypertension Pericardial effusion Surgical History H/O breast reconstruction H/O gastric bypass H/O knee surgery H/O mastectomy H/O neck surgery H/O: hysterectomy History of back surgery Social History Smoking and tobacco status: never smoked Alcohol intake: never Substance/Drug Use: never Physical Exam Const: COMMON NORMALS: no acute distress, patient oriented x3 and alert GENERAL APPEARANCE: cooperative ORIENTATION/CONSCIOUSNESS: Yes awake, Yes oriented to person, Yes oriented to place and Yes oriented to time HENMT: COMMON NORMALS: normocephalic and atraumatic HEAD & SCALP: normocephalic and atraumatic FACE & SINUS: normal facial exam MOUTH: Normal oral and palatal mucosa present THROAT: posterior oropharynx normal Eye: COMMON NORMALS: Equal, round and reactive pupils present, EOMs intact bilaterally, conjunctivae normal and no scleral icterus GENERAL EYE: appearance normal, both eyes and all related structures ALIGNMENT: Yes alignment normal PERIORBITAL: periorbital findings normal CONJUNCTIVA: Yes conjunctivae normal PUPIL: Yes Equal, round and reactive pupils present Neck/C-Spine: COMMON NORMALS: full ROM GENERAL: Yes normal visual inspection Lymph: LYMPHATIC: no lymphadenopathy noted Chest: COMMONS NORMALS: normal inspection of the chest Breast/axilla inspection: Yes no chest deformity, asymmetry, normal contours, no nodules, masses, tenderness Resp: COMMON NORMALS: normal respiratory effort, No retractions, No use of accessory muscles and clear to auscultation bilaterally EFFORT & INSPECTION: Yes able to speak in complete sentences and Yes symmetric chest movement AUSCULTATION: clear to auscultation bilaterally Cardio: COMMON NORMALS: regular rate, regular rhythm and Peripheral pulses 2+ throughout RATE: regular rate RHYTHM: regular rhythm PERIPHERAL PULSES: Peripheral pulses 2+ throughout GI: COMMON NORMALS: Normal to inspection, nondistended, normoactive bowel sounds present, Soft to palpation, non-tender and No hepatosplenomegaly present INSPECTION: Yes normal to inspection AUSCULTATION: Yes normoactive bowel sounds PALPATION: Yes Soft to palpation and Yes No hepatosplenomegaly present RECTAL EXAM: deferred Extremity: COMMON NORMALS: normal to inspection GENERAL: Yes normal exam except as noted Neuro: COMMON NORMALS: patient oriented x3 SENSORIUM/ORIENTATION: Yes alert, Yes oriented to person, Yes oriented to place and Yes oriented to time CRANIAL NERVES: Yes CN normal except as noted Psych: COMMON NORMALS: mental status grossly normal, Normal thought process present, cooperative, activity/motor behavior normal, denies homicidal ideation and denies suicidal ideation THOUGHT PROCESS: Normal thought process present Skin: COMMON NORMALS: no rashes or lesions noted, no wounds and turgor normal GENERAL SKIN EXAM: no rashes or lesions noted and turgor normal Course Vital Signs: Vital signs: Vital Signs Temperature 97.6 F 11/10/22 15:14 Pulse Rate 61 11/10/22 16:49 Respiratory Rate 15 11/10/22 15:14 Blood Pressure 159/75 11/10/22 16:49 Pulse Oximetry 99 11/10/22 16:49 Oxygen Delivery Me thod Room Air 11/10/22 15:14 MDM - Skin/Abscess/Foreign Bdy Medicial Decision Making Patient did develop gross was evaluated in the emergency department with complaints of left groin and left knee pain. Onset of left knee pain was appr oximately 3 weeks ago but developed left groin pain this afternoon. Patient denies any falls, injuries,. Patient underwent XR imaging of the hip, pelvis, knee which revealed no acute findings. He does have mild tricompartmental degenerative changes in the knee. Patient was given nonsteroidal anti-inflammatory drugs. She is going to follow- up with her primary care doctor on Saturday. She has a scheduled appointment with them. Questions answered Lab Data Radiology Impressions Hip/Pelvis X-Ray 11/10/22 17:08 IMPRESSION: 1. No acute abnormality demonstrated. 2. There is no interval change from the prior examination. Knee X-Ray 11/10/22 17:08 IMPRESSION: 1. Mild tricompartmental degenerative change. 2. No acute abnormality demonstrated. Pelvis X-Ray 11/10/22 17:08 IMPRESSION: No acute abnormality demonstrated. Laboratory Results Urine Color Yellow (Yellow) 11/10/22 16:10 Urine Appearance Clear (CLEAR) 11/10/22 16:10 Urine pH 5 (5-7) 11/10/22 16:10 Ur Specific [place] 1.020 (1.005-1.030) 11/10/22 16:10 Urine Protein Neg (Negative) 11/10/22 16:10 Urine Glucose (UA) Norm (Normal) 11/10/22 16:10 Urine Ketones Negative (Negative) 11/10/22 16:10 Urine Blood Neg (Negative) 11/10/22 16:10 Urine Nitrate Negative (Negative) 11/10/22 16:10 Urine Bilirubin Neg (Negative) 11/10/22 16:10 Urine Urobilinogen Norm mg/dL (Negative) 11/10/22 16:10 Ur Leukocyte Esterase Negative (Negative) 11/10/22 16:10 Discharge Plan Discharge Patient Disposition: Home Clinical Impression: Acute knee pain, Groin pain Condition: Stable Prescriptions: New diclofenac sodium 75 mg tablet,delayed release (DR/EC) 75 mg PO BID Qty: 20 0RF No Action fluticasone propionate [Flonase Allergy Relief] 50 mcg/actuation spray,suspension 2 spray intranasal DAILY 14 Days Qty: 16 0RF Rx Instructions: administer into each nostril isosorbide mononitrate 30 mg tablet extended release 24 hr 30 mg PO DAILY Qty: 90 1RF citalopram 40 mg tablet 40 mg PO DAILY cyanocobalamin (vitamin B-12) 1,000 mcg/mL solution 1,000 mcg IM Q30D oxycodone 30 mg tablet 30 mg PO Q4H PRN (Reason: Pain) albuterol sulfate 90 mcg/actuation HFA aerosol inhaler 2 puff INHALATION Q6H PRN (Reason: Shortness Of Breath) Vitron-C 65 mg iron- 125 mg Tablet,Delayed Release (Dr/Ec) 1 tab PO DAILY potassium chloride 20 mEq Tablet Extended Release 20 meq PO DAILY PRN (Reason: WITH LASIX) furosemide 20 mg tablet 20 mg PO DAILY PRN (Reason: Edema) cholecalciferol (vitamin D3) [Vitamin D3] 25 mcg (1,000 unit) Capsule 25 mcg PO DAILY alendronate 70 mg Tablet 70 mg PO Q7D Rx Instructions: on Saturdays ropinirole 1 mg tablet 1 mg PO DAILY pantoprazole 40 mg tablet,delayed release (DR/EC) 40 mg PO DAILY levothyroxine 150 mcg tablet 150 mcg PO DAILY diltiazem HCl 240 mg capsule,extended release 24hr 240 mg PO DAILY aspirin 81 mg Tablet,Delayed Release (Dr/Ec) 81 mg PO DAILY simvastatin 20 mg tablet 20 mg PO QPM topiramate 100 mg tablet 100 mg PO BID Discharge Orders: Discharge ED (Routine); Ordered 11/10/22 Ordered By: Jeffrey Pratt Referrals: Neo Alvarado DO [Primary Care Provider] - Discharge Diet: Advance as tolerated Discharge Activity: Resume usual activity Patient Instructions: Knee Pain (ED), Pain Management Activity Restrictions/Additional Instructions: Please return to the emergency department for new, concerning, worsening symptoms As discussed please follow-up with your primary care doctor on Saturday. Coding Level of Care Code ED Extension Service Agent for Clarence Medel
[2022-11-10 17:38] LABS: Add Urine Microscopic? NO; Charge for UA Resulting for Rev
[2022-11-10 17:42] LABS: Bilirubin Urine Neg (Negative); Blood Urine Neg (Negative); Glucose Urine UA Norm (Normal); Ketones Urine Negative (Negative); Leukocyte Esterase Urine Negative (Negative); Nitrate Urine Negative (Negative); Protein Urine Neg (Negative); Urine Appearance Clear (CLEAR); Urine Color Yellow (Yellow); Urobilinogen Urine Norm (Negative); pH Urine 5 (5-7)
== END 2022-11-10 18:34 | disposition home or self-care (01) ==
PROVIDERS: Emergency Provider Nurse Practitioner; PCP Internal Medicine
DX: M25.562 Pain in left knee (principal); R10.32 Left lower quadrant pain; Z79.82 Long term (current) use of aspirin; Z85.3 Personal history of malignant neoplasm of breast; Z85.828 Personal history of other malignant neoplasm of skin; I10 Essential (primary) hypertension
CPT/HCPCS: 72170; 73502; 73560; 81003; 99284

== ENCOUNTER 2023-01-02 12:12 | Outpatient (RCR) | payer MEDICARE, OTHER, SELFPAY | END 2023-01-31 23:59 | disposition home or self-care (01) | LOC: SPT 12:12 | PROVIDERS: PCP Internal Medicine; Visit Provider Orthopaedic Surgery | DX: Z98.890 Other specified postprocedural states (principal) | CPT/HCPCS: 97110; 97161; G0283 ==

== ENCOUNTER → 2023-03-28 12:41 | Outpatient (BNVA) | payer MEDICARE, OTHER, SELFPAY | PROVIDERS: PCP Internal Medicine; Visit Provider Nurse Practitioner Family | DX: R39.9 Unspecified symptoms and signs involving the genitourinary system (principal) | CPT/HCPCS: 17000; 81000; 87086; 99213 ==

== ENCOUNTER → 2023-05-15 14:04 | Outpatient (BNVA) | payer MEDICARE, OTHER, SELFPAY | PROVIDERS: PCP Internal Medicine; Visit Provider Internal Medicine | DX: R07.89 Other chest pain (principal); I10 Essential (primary) hypertension; R94.31 Abnormal electrocardiogram [ECG] [EKG]; Z85.3 Personal history of malignant neoplasm of breast | CPT/HCPCS: 99214 ==

== ENCOUNTER → 2023-05-27 13:34 | Outpatient (BNVA) | payer MEDICARE, OTHER, SELFPAY | PROVIDERS: PCP Internal Medicine; Visit Provider Nurse Practitioner | DX: R30.0 Dysuria (principal) | CPT/HCPCS: 81000 ==

== ENCOUNTER 2023-06-05 10:21 | Emergency (ER) | payer MEDICARE, OTHER, SELFPAY ==
[2023-06-05 10:47] VITALS: BP 127/72; PULSE 74; RESP 18; TEMP 36.8; O2SAT 93; BMI 27.3
--- NOTE | 2023-06-05 11:02 | ED_ITS ---
HPI - Female Genitourinary 2 General: Chief complaint: Urogenital-Female Stated complaint: trouble urinating Time Seen by Provider: 06/05/23 10:37 Source: patient Mode of arrival: ambulatory History of Present Illness: 78 yo female presents to the ER complain ts of dysuria urgency and frequency. She completed a course of Augmentin recently and despite that still has urinary tract symptoms. She was seen at a doctor's office and went home we do not have a culture for that. She does report she frequently gets UTIs. She denies any hematuria she does report a temp yesterday up to 103 no respiratory symptoms. Denies chest or abdominal pain she does complain of some low back pain at the level of the L5-S1 region more so on the right than the left. No pain at the level of the kidneys. She has been very nauseous but no vomiting. MD elicited complaint: dysuria and UTI Onset (ago): day(s) Severity: moderate Quality of pain: cramping Consistency: constant Urinary symptoms: Dysuria Exacerbating factors: none Relieving factors: none Associated symptoms: Deny abdominal pain, short of breath, fevers/chills, headache(s), nausea, rash, seizures, syncope, vaginal bleeding, vaginal discharge or weakness Treatment prior to arrival: none Review of Systems 2 Const: Denies: fever(s) or chills Card: Denies: syncope Resp: Denies: dyspnea GI: Denies: abdominal pain or nausea : Denies: vaginal discharge Musc: Denies: neck pain or back pain Skin/Breast: Denies: rash Neuro: Denies: headache(s) PFSH ED 2 PFSH: Medical History History of nonmelanoma skin cancer History of nonmelanoma skin cancer Pericardial effusion Hypertension Edema History of breast cancer Surgical History History of back surgery H/O breast reconstruction H/O mastectomy H/O knee surgery H/O: hysterectomy H/O gastric bypass H/O neck surgery Social History Smoking and tobacco/nicotine status: never used tobacco/nicotine Alcohol intake: never Substance/Drug Use: never Physical Exam 2 Const: GENERAL APPEARANCE: cooperative and comfortable O RIENTATION/CONSCIOUSNESS: Yes awake, Yes oriented to person, Yes oriented to place and Yes oriented to time HENMT: COMMON NORMALS: normocephalic, atraumatic and hearing grossly normal bilaterally HEAD & SCALP: normocephalic and atraumatic Resp: COMMON NORMALS: normal respiratory effort, No retractions, No use of accessory muscles and clear to auscultation bilaterally AUSCULTATION: clear to auscultation bilaterally Cardio: COMMON NORMALS: regular rate, regular rhythm and No murmurs present (Cardio) RATE: regular rate RHYTHM: regular rhythm GI: COMMON NORMALS: Soft to palpation and No hepatosplenomegaly present A USCULTATION: Yes normoactive bowel sounds PALPATION: Yes Soft to palpation, No Tenderness to palpation present (GI), No Guarding due to palpation present (GI) and Yes No hepatosplenomegaly present : COMMON NORMALS: Yes no CVA tenderness BLADDER/KIDNEY EXAM: Yes no CVA tenderness SPECULUM EXAM - VAGINA: No vaginal bleeding OB/EXTERNAL & SPECULUM: No vaginal bleeding Back/Pelvis: COMMON NORMALS: no CVA tenderness Extremity: COMMON NORMALS: capillary refill normal, no clubbing, cyanosis or edema, no calf tenderness and no pedal edema OTHER: Thickened calluses the sole of the foot underlying the first and fifth MTP joint Neuro: SENSORIUM/ORIENTATION: Yes oriented to person, Yes oriented to place and Yes oriented to time Skin: COMMON NORMALS: no rashes or lesions noted GENERAL SKIN EXAM: no rashes or lesions noted Course 2 Vital Signs: Vital signs: Vital Signs Temperature 98.3 F 06/05/23 10:47 Pulse Rate 74 06/05/23 10:47 Respiratory Rate 18 06/05/23 11:38 Blood Pressure 100/54 06/05/23 12:49 Pulse Oximetry 94 06/05/23 11:38 Oxygen Delivery Me thod Room Air 06/05/23 11:38 MDM - Female Medical Decision Making No leukocytosis CT did not show any acute changes urine shows contamination no clear signs of cystitis. Most of her pain is in her low back. May be musculoskeletal in nature she reports fever but she has no white count and no fever here. No significant findings on the CT. She has mild elevation of her liver enzymes which I suspect may be related to her previous gastric bypass. She has no right upper quadrant pain no symptoms suggestive of biliary colic at this time. Her abdominal exam was essentially benign. Patient had a urine done in outpatient clinics but it looks like it was a dip only and there was no culture and no micro on it. Urine today micro showed equal number of white and squamous cells. Push fluids. Patient is reporting some chills at night if this persist recheck with your primary care doctor or in the emergency room. At this point does not appear to be an emergent condition present. Time of discharge she is awake and alert vital signs are stable. Medical Records I reviewed the patient's medical records. Lab Data I reviewed the patient's lab results. 06/05/23 11:09 06/05/23 11:09 Laboratory Results WBC 7.70 10^3/uL (3.29-11.43) 06/05/23 11:09 RBC 3.78 10^6/uL (3.85-5.65) L 06/05/23 11:09 Hgb 11.50 g/dL (11.27-16.99) 06/05/23 11:09 Hct 35.2 % (36-47) L 06/05/23 11:09 MCV 93.1 fl (85-98) 06/05/23 11:09 MCH 30.4 pg (27-33) 06/05/23 11:09 MCHC 32.7 g/dL (30-55) 06/05/23 11:09 RDW 14.0 % (12.1-15.1) 06/05/23 11:09 Plt Count 178 10^3/cmm (157-399) 06/05/23 11:09 MPV 10.7 fL (7.4-10.4) H 06/05/23 11:09 Neut % (Auto) 80.7 % 06/05/23 11:09 Lymph % (Auto) 12.1 % 06/05/23 11:09 [place] % (Auto) 5.2 % 06/05/23 11:09 Eos % (Auto) 0.8 % 06/05/23 11:09 Baso % (Auto) 0.4 % 06/05/23 11:09 Neut # (Auto) 6.22 10^3/uL (1.8-7.7) 06/05/23 11:09 Lymph # (Auto) 0.9 10^3/uL (0.8-4.8) 06/05/23 11:09 [place] # (Auto) 0.4 10^3/uL (0.2-0.9) 06/05/23 11:09 Eos # (Auto) 0.1 10^3/uL (0.0-0.8) 06/05/23 11:09 Baso # (Auto) 0.0 10^3/uL (0.0-0.1) 06/05/23 11:09 Nucleated RBC % (auto) 0 % 06/05/23 11:09 Nucleated RBCs # 0.0 /100WBC 06/05/23 11:09 Sodium 134 mmol/L (136-145) L 06/05/23 11:09 Potassium 3.7 mmol/L (3.5-5.1) 06/05/23 11:09 Chloride 103 mmol/L (98-107) 06/05/23 11:09 Carbon Dioxide 20 mmol/L (22-29) L 06/05/23 11:09 Anion Gap 14.7 (5-19) 06/05/23 11:09 BUN 15 mg/dL (8-23) 06/05/23 11:09 Creatinine 0.9 mg/dL (0.5-0.9) 06/05/23 11:09 GFR Calculation Not Reportable 06/05/23 11:09 Glucose 117 mg/dL (65-115) H 06/05/23 11:09 Calculated Osmolality 280 mOsm/kg (285-295) L 06/05/23 11:09 Lactic Acid 0.8 mmol/L (0.5-2.2) 06/05/23 11:09 Calcium 9.3 mg/dL (8.5-10.5) 06/05/23 11:09 Total Bilirubin 0.3 mg/dL (0.15-1.2) 06/05/23 11:09 AST 43 U/L (0-32) H 06/05/23 11:09 ALT 34 U/L (0-33) H 06/05/23 11:09 Alkaline Phosphatase 86 U/L (35-105) 06/05/23 11:09 Total Protein 6.4 g/dL (6.6-8.7) L 06/05/23 11:09 Albumin 3.6 g/dL (3.5-5.2) 06/05/23 11:09 Globulin 2.8 g/dL (1.3-4.6) 06/05/23 11:09 Urine Color Yellow (Yellow) 06/05/23 11:20 Urine Appearance Hazy (CLEAR) A 06/05/23 11:20 Urine pH 5 (5-7) 06/05/23 11:20 Ur Specific [place] 1.025 (1.005-1.030) 06/05/23 11:20 Urine Protein 1+ (Negative) H 06/05/23 11:20 Urine Glucose (UA) Norm (Normal) 06/05/23 11:20 Urine Ketones 1+ (Negative) H 06/05/23 11:20 Urine Blood 2+ (Negative) H 06/05/23 11:20 Urine Nitrate Negative (Negative) 06/05/23 11:20 Urine Bilirubin 1+ (Negative) H 06/05/23 11:20 Urine Urobilinogen 1 mg/dL (Negative) H 06/05/23 11:20 Ur Leukocyte Esterase Trace (Negative) H 06/05/23 11:20 Urine RBC 0-4 /hpf (0-2) H 06/05/23 11:20 Urine WBC 5-10 /hpf (0-5) H 06/05/23 11:20 Ur Squamous Epith Cells 5-10 /hpf (0-5) H 06/05/23 11:20 Ur Transition Epith Cell 0-4 /hpf 06/05/23 11:20 Amorphous Sediment Not Reportable 06/05/23 11:20 Urine Bacteria Trace /hpf (NONE) 06/05/23 11:20 Hyaline Casts 5-10 /lpf H 06/05/23 11:20 Urine Mucus 3+ /hpf 06/05/23 11:20 All radiology interpretation(s) finalized by discharge Discharge Plan Discharge Patient Disposition: Home Clinical Impression: Back pain Condition: Stable Prescriptions: No Action ondansetron 4 mg tablet,disintegrating 4 mg PO Q8H PRN (Reason: nausea and vomiting) Qty: 10 0RF citalopram 40 mg tablet 40 mg PO QAM cyanocobalamin (vitamin B-12) 1,000 mcg/mL solution 1,000 mcg IM Q30D oxycodone 30 mg tablet 30 mg PO Q4H PRN (Reason: Pain) albuterol sulfate 90 mcg/actuation HFA aerosol inhaler 2 puff INHALATION Q6H PRN (Reason: Shortness Of Breath) Vitron-C 65 mg iron- 125 mg Tablet,Delayed Release (Dr/Ec) 1 tab PO QAM potassium chloride 20 mEq Tablet Extended Release 20 meq PO DAILY PRN (Reason: WITH LASIX) furosemide 20 mg tablet 20 mg PO DAILY PRN (Reason: Edema) cholecalciferol (vitamin D3) [Vitamin D3] 25 mcg (1,000 unit) Capsule 25 mcg PO QAM alendronate 70 mg Tablet 70 mg PO Q7D Rx Instructions: on Saturdays ropinirole 1 mg tablet 1 mg PO BEDTIME pantoprazole 40 mg tablet,delayed release (DR/EC) 40 mg PO QAM levothyroxine 150 mcg tablet 150 mcg PO QAM oxybutynin chloride 5 mg tablet extended release 24hr 5 mg PO DAILY melatonin 10 mg Tablet 10 mg PO BEDTIME isosorbide mononitrate 30 mg tablet extended release 24 hr 30 mg PO QAM aspirin 81 mg Tablet,Delayed Release (Dr/Ec) 81 mg PO QAM simvastatin 20 mg tablet 20 mg PO BEDTIME topiramate 100 mg tablet 100 mg PO BID Discharge Orders: Discharge ED (Routine); Ordered 06/05/23 Ordered By: Lobo Palacios Referrals: Neo Alvarado DO [Primary Care Provider] - Discharge Diet: Usual diet Discharge Activity: Increase activity as tolerated Patient Instructions: Opioid Safety, Pain Management Activity Restrictions/Additional Instructions: Thank you for choosing [facility] for your healthcare needs today. Please realize this is an emergency room and that we are providing you with a medical screening exam and this may not be complete and all inclusive of all the testing and or work up that you may need to determine your ailment or severity of your illness. It is very important that you follow up as instructed or that you return to the Emergency Department should you have concerns or if your condition changes or worsens in any way. You were seen today for complaint of recurrent dysuria and low back pain. You had reported a fever. Your white count and your temperature were normal in the emergency room. CT of the abdomen did not show any acute changes. Urine showed some contamination no clear signs of infection at this time. Given the fact you recently were on a broad-spectrum antibiotic recommend holding off any further antibiotics until there is a culture report back showing whether or not there is an acute infection. Blood cultures were also done today. Follow-up if you have persistent symptoms. Per your request for your foot pain and calluses and referral to podiatry was made. Coding Level of Care Code ED Spring Tacker for Clarence Medel
--- NOTE | 2023-06-05 11:14 | PC.PHAR ---
pt states she takes care of her own medications-pt states she finished her augmentin 875-125mg one tab bid on 06/02/23 rx filled 05/27/23 7d/s-pt states no longer takes diltiazem er 240mg daily states was dced-pt states hasnt had her oxybutynin er 5mg daily pt states not taken in 6 months due to copay being 245.00-pt states she takes lasix and kcl prn ext doesnt show when last filled-
[2023-06-05 11:22] LABS: Basophils % 0.4 %; Eosinophils # 0.1 10^3/uL (0.0-0.8); Eosinophils % 0.8 %; Hematocrit 35.2 % (36-47); Lymphocytes # 0.9 10^3/uL (0.8-4.8); Lymphocytes % 12.1 %; Mean Corpuscular HGB Conc 32.7 g/dL (30-55); Mean Corpuscular Hemoglobin 30.4 pg (27-33); Mean Corpuscular Volume 93.1 fl (85-98); Mean Platelet Volume 10.7 fL (7.4-10.4); Monocytes # 0.4 10^3/uL (0.2-0.9); Monocytes % 5.2 %; Neutrophils # 6.22 10^3/uL (1.8-7.7); Neutrophils % 80.7 %; Nucleated Red Blood Cells % 0 %; Platelet Count 178 10^3/cmm (157-399); Red Blood Count 3.78 10^6/uL (3.85-5.65)
--- NOTE | 2023-06-05 11:29 | DCPLANNER ---
Message sent to Podiatry-follow Foot pain
[2023-06-05 11:36] LABS: Lactic Sepsis W/Reflex 0.8 mmol/L (0.5-2.2)
[2023-06-05 11:37] LABS: Alanine Aminotransferase 34 U/L (0-33); Albumin Level 3.6 g/dL (3.5-5.2); Alkaline Phosphatase 86 U/L (35-105); Anion Gap 14.7 (5-19); Aspartate Amino Transferase 43 U/L (0-32); Blood Urea Nitrogen 15 mg/dL (8-23); Calcium 9.3 mg/dL (8.5-10.5); Carbon Dioxide 20 mmol/L (22-29); Chloride 103 mmol/L (98-107); Creatinine Clr Calc Pharmacy 59.6039; Globulin 2.8 g/dL (1.3-4.6); Glucose 117 mg/dL (65-115); Osmolality Calculated 280 mOsm/kg (285-295); Potassium 3.7 mmol/L (3.5-5.1); Sodium 134 mmol/L (136-145); Total Bilirubin 0.3 mg/dL (0.15-1.2); Total Protein 6.4 g/dL (6.6-8.7)
[2023-06-05 11:38] VITALS: BP 127/72; RESP 18; O2SAT 94
[2023-06-05 11:44] LABS: Add Urine Microscopic? YES; Bilirubin Urine 1+ (Negative); Blood Urine 2+ (Negative); Glucose Urine UA Norm (Normal); Ketones Urine 1+ (Negative); Leukocyte Esterase Urine Trace (Negative); Nitrate Urine Negative (Negative); Protein Urine 1+ (Negative); Specific Gravity, Urine 1.025 (1.005-1.030); Urine Appearance Hazy (CLEAR); Urine Color Yellow (Yellow); Urobilinogen Urine 1 mg/dL (Negative); pH Urine 5 (5-7)
[2023-06-05 11:47] LABS: Bacteria Urine TRACE /hpf; Mucus Urine 3+ /hpf; RBC Urine 0-4 /hpf (0-2); Transitional Epi Cells Urine 0-4 /hpf
[2023-06-05 11:48] LABS: Add Urine Culture? No
--- NOTE | 2023-06-05 12:00 | XR_ITS ---
WS: [id number] Examination: XR chest 1V portable [id number] Reason for Exam: dyspnea/cough Date: June 05, 2023 Comparison: December 07, 2022 Findings: The heart is not grossly enlarged on this AP portable film. The mediastinum is not widened. There is no pulmonary edema or pleural effusion Again linear scarring or atelectasis is identified in the right base. Impression: Similar-appearing right basilar atelectasis or scarring.
--- NOTE | 2023-06-05 12:00 | CT_ITS ---
WS: [id number] CT ABDOMEN PELVIS TECHNIQUE: Noncontrast CT of the abdomen and pelvis with coronal and sagittal reformatted images. CLINICAL INFORMATION: Abdominal pain COMPARISON: CT 10/21/2021 DLP: 786.[address] scans at [facility] use at least one of these dose optimization techniques: automated e xposure control; mA and/or kV adjustment per patient size (includes targeted exams where dose is matc hed to clinical indication); or iterative reconstruction. FINDINGS: Noncontrast liver is normal. Prior postoperative changes gastric bypass. Normal noncontrast spleen. F atty atrophy of the pancreas. Splenic artery calcifications. Adrenal glands are normal. No hydronephr osis in either kidney. Bilateral renal cysts. Lung bases are well aerated. Slight subsegmental atelec tasis in the lung bases. Normal caliber abdominal aorta. Aortic calcification. No evidence of high-gr mariel small or large bowel obstruction. Normal sigmoid colon. Mild stable compression superior endplates T11 and T12. IMPRESSION: 1. No acute findings in the abdomen or pelvis. 2. Prior postoperative changes gastric bypass. 3. Stable bilateral renal cysts. LEFT renal cyst appears complex and could be followed up with ultra sound. 4. Mild compression superior endplates T11 and T12 unchanged from previous. 5. Midline ventral fat-containing upper abdominal hernia. No herniated bowel. This is unchanged fro m previous.
[2023-06-05 12:49] VITALS: BP 100/54
--- NOTE | 2023-06-06 11:02 | PC.NURSE ---
1/4 blood cultures +E. Coli with a resistance marker.
== END 2023-06-05 13:46 | disposition home or self-care (01) ==
PROVIDERS: Emergency Medicine; Emergency Provider Family Medicine; PCP Internal Medicine
DX: M54.50 Low back pain, unspecified (principal); Z79.82 Long term (current) use of aspirin; I10 Essential (primary) hypertension; Z85.3 Personal history of malignant neoplasm of breast
CPT/HCPCS: 36415; 71045; 74176; 80053; 81001; 83605; 85025; 87040; 87077; 87150; 87186; 87205; 99284

== ENCOUNTER 2023-06-12 08:12 | Inpatient (IN) | payer MEDICARE, OTHER, SELFPAY ==
[2023-06-12 08:36] VITALS: BP 122/65; PULSE 75; RESP 18; TEMP 36.6; O2SAT 96; BMI 27.5
[2023-06-12 09:01] LABS: Blood Urine Neg (Negative); Glucose Urine UA Norm (Normal); Ketones Urine Negative (Negative); Nitrate Urine Negative (Negative); Protein Urine Neg (Negative); Urine Appearance Cloudy (CLEAR); Urine Color Dark Yellow (Yellow); pH Urine 5 (5-7)
[2023-06-12] MEDS: meropenem 1,000 MG in sodium chloride 0.9% (plus) 50 ML 100 MG IV ×2 (09:01→17:04)
[2023-06-12 09:02] LABS: Add Urine Microscopic? YES; Bilirubin Urine 1+ (Negative); Leukocyte Esterase Urine 1+ (Negative); Urobilinogen Urine 1 mg/dL (Negative)
[2023-06-12 09:08] LABS: Basophils % 0.4 %; Eosinophils # 0.1 10^3/uL (0.0-0.8); Eosinophils % 1.9 %; Lymphocytes # 1.1 10^3/uL (0.8-4.8); Lymphocytes % 20.3 %; Mean Corpuscular HGB Conc 32.7 g/dL (30-55); Mean Corpuscular Hemoglobin 30.9 pg (27-33); Mean Corpuscular Volume 94.4 fl (85-98); Mean Platelet Volume 10.3 fL (7.4-10.4); Monocytes # 0.4 10^3/uL (0.2-0.9); Monocytes % 7.5 %; Neutrophils # 3.69 10^3/uL (1.8-7.7); Neutrophils % 69.1 %; Nucleated Red Blood Cells % 0 %; Platelet Count 270 10^3/cmm (157-399); Red Blood Count 3.92 10^6/uL (3.85-5.65); Red Cell Distribution Width 13.6 % (12.1-15.1); White Blood Count 5.33 10^3/uL (3.29-11.43)
[2023-06-12 09:24] LABS: Add Urine Culture? Yes; Bacteria Urine TRACE /hpf; Mucus Urine 1+ /hpf; Other Casts Urine WAXY CAST 0-4 /lpf; RBC Urine 0-4 /hpf (0-2); Squamous Epithelial Cell Urine 0-4 /hpf (0-5); Transitional Epi Cells Urine 0-4 /hpf; WBC Urine >100 /hpf (0-5)
[2023-06-12 09:26] LABS: Alanine Aminotransferase 20 U/L (0-33); Albumin Level 3.8 g/dL (3.5-5.2); Alkaline Phosphatase 85 U/L (35-105); Aspartate Amino Transferase 27 U/L (0-32); Blood Urea Nitrogen 15 mg/dL (8-23); Calcium 9.1 mg/dL (8.5-10.5); Carbon Dioxide 20 mmol/L (22-29); Chloride 106 mmol/L (98-107); Creatinine Clr Calc Pharmacy 67.2256; Glucose 107 mg/dL (65-115); Lactic Sepsis W/Reflex 0.7 mmol/L (0.5-2.2); Osmolality Calculated 285 mOsm/kg (285-295); Sodium 137 mmol/L (136-145); Total Bilirubin 0.3 mg/dL (0.15-1.2); Total Protein 6.8 g/dL (6.6-8.7)
--- NOTE | 2023-06-12 09:41 | ED_ITS ---
HPI - Female Genitourinary 2 General: Chief complaint: Urogenital-Female Stated complaint: abnormal labs Time Seen by Provider: 06/12/23 08:34 History of Present Illness: 78-year-old female returns to the emerge ncy room after we reviewed a culture that came back positive for ESBL E. coli in her blood. This was done on 06 05. The result was presented today and she was contacted to return. She is continuing to have night sweats generally not feeling well and some pelvic cramping. When she was here last time her white count was normal we had done a CT that was also normal because of her description and the fact she been on multiple antibiotics recently we had gone ahead and done blood cultures. Urine at the time showed some contamination but did not clearly show signs of a bladder infection. Was concerned that she may have had a chronic cystitis and we held off on any antibiotics at that time. Associated symptoms: Reports abdominal pain (Suprapubic cramping) Review of Systems 2 Const: Reports: fever(s) and chills Card: Denies: chest pain Resp: Denies: dyspnea GI: Reports: abdominal pain (Suprapubic cramping) : Reports: dysuria and urinary frequency; Denies: urinary urgency Musc: Denies: neck pain or back pain Skin/Breast: Denies: rash PFSH ED 2 PFSH: Medical History (Updated 06/12/23 @ 11:41 by Lobo Palacios DO) Neuropathy Hyperlipidemia GERD (gastroesophageal reflux disease) Chronic pain Osteoporosis Hypothyroid History of nonmelanoma skin cancer History of nonmelanoma skin cancer Pericardial effusion Hypertension Edema History of breast cancer Surgical History History of back surgery H/O breast reconstruction H/O mastectomy H/O knee surgery H/O: hysterectomy H/O gastric bypass H/O neck surgery Family History (Updated 06/12/23 @ 11:39 by Gray Gomez MD) Other CAD (coronary artery disease) Cancer Social History Smoking and tobacco/nicotine status: never used tobacco/nicotine Alcohol intake: never Substance/Drug Use: never Physical Exam 2 Const: COMMON NORMALS: no acute distress GENERAL APPEARANCE: cooperative and comfortable ORIENTATION/CONSCIOUSNESS: Yes awake, Yes oriented to person, Yes oriented to place and Yes oriented to time HENMT: COMMON NORMALS: normocephalic, atraumatic and hearing grossly normal bilaterally HEAD & SCALP: normocephalic and atraumatic Resp: COMMON NORMALS: normal respiratory effort, No retractions, No use of accessory muscles and clear to auscultation bilaterally AUSCULTATION: clear to auscultation bilaterally Cardio: COMMON NORMALS: regular rate, regular rhythm and No murmurs present (Cardio) RATE: regular rate RHYTHM: regular rhythm GI: COMMON NORMALS: Soft to palpation and No hepatosplenomegaly present A USCULTATION: Yes normoactive bowel sounds PALPATION: Yes Soft to palpation, No Tenderness to palpation present (GI), No Guarding due to palpation present (GI) and Yes No hepatosplenomegaly present Extremity: COMMON NORMALS: normal to inspection, capillary refill normal, no clubbing, cyanosis or edema, no calf tenderness and no pedal edema Neuro: SENSORIUM/ORIENTATION: Yes oriented to person, Yes oriented to place and Yes oriented to time Skin: COMMON NORMALS: no rashes or lesions noted GENERAL SKIN EXAM: no rashes or lesions noted Course 2 Vital Signs: Vital signs: Vital Signs Temperature 97.8 F 06/12/23 08:36 Pulse Rate 75 06/12/23 08:36 Respiratory Rate 18 06/12/23 08:36 Blood Pressure 122/65 06/12/23 08:36 Pulse Oximetry 96 06/12/23 08:36 Oxygen Delivery Me thod Room Air 06/12/23 08:36 MDM - Female Medical Decision Making Patient returns with a positive E. coli ESBL blood culture from previous visit she still has some suprapubic discomfort is also still having intermittent fevers at night. Recultured blood repeat white count normal we will start her on IV antibiotics meropenem discussed with hospitalist orders written Medical Records I reviewed the patient's medical records. Lab Data I reviewed the patient's lab results. 06/12/23 08:54 06/12/23 08:54 Laboratory Results WBC 5.33 10^3/uL (3.29-11.43) 06/12/23 08:54 RBC 3.92 10^6/uL (3.85-5.65) 06/12/23 08:54 Hgb 12.10 g/dL (11.27-16.99) 06/12/23 08:54 Hct 37.0 % (36-47) 06/12/23 08:54 MCV 94.4 fl (85-98) 06/12/23 08:54 MCH 30.9 pg (27-33) 06/12/23 08:54 MCHC 32.7 g/dL (30-55) 06/12/23 08:54 RDW 13.6 % (12.1-15.1) 06/12/23 08:54 Plt Count 270 10^3/cmm (157-399) 06/12/23 08:54 MPV 10.3 fL (7.4-10.4) 06/12/23 08:54 Neut % (Auto) 69.1 % 06/12/23 08:54 Lymph % (Auto) 20.3 % 06/12/23 08:54 [place] % (Auto) 7.5 % 06/12/23 08:54 Eos % (Auto) 1.9 % 06/12/23 08:54 Baso % (Auto) 0.4 % 06/12/23 08:54 Neut # (Auto) 3.69 10^3/uL (1.8-7.7) 06/12/23 08:54 Lymph # (Auto) 1.1 10^3/uL (0.8-4.8) 06/12/23 08:54 [place] # (Auto) 0.4 10^3/uL (0.2-0.9) 06/12/23 08:54 Eos # (Auto) 0.1 10^3/uL (0.0-0.8) 06/12/23 08:54 Baso # (Auto) 0.0 10^3/uL (0.0-0.1) 06/12/23 08:54 Nucleated RBC % (auto) 0 % 06/12/23 08:54 Nucleated RBCs # 0.0 /100WBC 06/12/23 08:54 Sodium 137 mmol/L (136-145) 06/12/23 08:54 Potassium 4.0 mmol/L (3.5-5.1) 06/12/23 08:54 Chloride 106 mmol/L (98-107) 06/12/23 08:54 Carbon Dioxide 20 mmol/L (22-29) L 06/12/23 08:54 Anion Gap 15.0 (5-19) 06/12/23 08:54 BUN 15 mg/dL (8-23) 06/12/23 08:54 Creatinine 0.7 mg/dL (0.5-0.9) 06/12/23 08:54 GFR Calculation Not Reportable 06/12/23 08:54 Glucose 107 mg/dL (65-115) 06/12/23 08:54 Calculated Osmolality 285 mOsm/kg (285-295) 06/12/23 08:54 Lactic Acid 0.7 mmol/L (0.5-2.2) 06/12/23 08:54 Calcium 9.1 mg/dL (8.5-10.5) 06/12/23 08:54 Total Bilirubin 0.3 mg/dL (0.15-1.2) 06/12/23 08:54 AST 27 U/L (0-32) 06/12/23 08:54 ALT 20 U/L (0-33) 06/12/23 08:54 Alkaline Phosphatase 85 U/L (35-105) 06/12/23 08:54 Total Protein 6.8 g/dL (6.6-8.7) 06/12/23 08:54 Albumin 3.8 g/dL (3.5-5.2) 06/12/23 08:54 Globulin 3.0 g/dL (1.3-4.6) 06/12/23 08:54 Urine Color Dark yellow (Yellow) 06/12/23 08:39 Urine Appearance Cloudy (CLEAR) A 06/12/23 08:39 Urine pH 5 (5-7) 06/12/23 08:39 Ur Specific [place] 1.030 (1.005-1.030) 06/12/23 08:39 Urine Protein Neg (Negative) 06/12/23 08:39 Urine Glucose (UA) Norm (Normal) 06/12/23 08:39 Urine Ketones Negative (Negative) 06/12/23 08:39 Urine Blood Neg (Negative) 06/12/23 08:39 Urine Nitrate Negative (Negative) 06/12/23 08:39 Urine Bilirubin 1+ (Negative) H 06/12/23 08:39 Urine Urobilinogen 1 mg/dL (Negative) H 06/12/23 08:39 Ur Leukocyte Esterase 1+ (Negative) H 06/12/23 08:39 Urine RBC 0-4 /hpf (0-2) H 06/12/23 08:39 Urine WBC >100 /hpf (0-5) H 06/12/23 08:39 Ur Squamous Epith Cells 0-4 /hpf (0-5) H 06/12/23 08:39 Ur Transition Epith Cell 0-4 /hpf 06/12/23 08:39 Amorphous Sediment Not Reportable 06/12/23 08:39 Urine Bacteria Trace /hpf (NONE) 06/12/23 08:39 Hyaline Casts 5-10 /lpf H 06/12/23 08:39 Other Casts Waxy cast 0-4 /lpf 06/12/23 08:39 Urine Mucus 1+ /hpf 06/12/23 08:39 No radiology studies performed this visit Discharge Plan Discharge Patient Disposition: Admitted As Inpatient Clinical Impression: Sepsis due to Escherichia coli, Recurrent cystitis Condition: Stable Prescriptions: No Action ondansetron 4 mg tablet,disintegrating 4 mg PO Q8H PRN (Reason: nausea and vomiting) Qty: 10 0RF citalopram 40 mg tablet 40 mg PO QAM cyanocobalamin (vitamin B-12) 1,000 mcg/mL solution 1,000 mcg IM Q30D oxycodone 30 mg tablet 30 mg PO Q4H PRN (Reason: Pain) albuterol sulfate 90 mcg/actuation HFA aerosol inhaler 2 puff INHALATION Q6H PRN (Reason: Shortness Of Breath) Vitron-C 65 mg iron- 125 mg Tablet,Delayed Release (Dr/Ec) 1 tab PO QAM potassium chloride 20 mEq Tablet Extended Release 20 meq PO DAILY PRN (Reason: WITH LASIX) furosemide 20 mg tablet 20 mg PO DAILY PRN (Reason: Edema) cholecalciferol (vitamin D3) [Vitamin D3] 25 mcg (1,000 unit) Capsule 25 mcg PO QAM alendronate 70 mg Tablet 70 mg PO Q7D Rx Instructions: on Saturdays ropinirole 1 mg tablet 1 mg PO BEDTIME pantoprazole 40 mg tablet,delayed release (DR/EC) 40 mg PO QAM levothyroxine 150 mcg tablet 150 mcg PO QAM oxybutynin chloride 5 mg tablet extended release 24hr 5 mg PO DAILY melatonin 10 mg Tablet 10 mg PO BEDTIME isosorbide mononitrate 30 mg tablet extended release 24 hr 30 mg PO QAM aspirin 81 mg Tablet,Delayed Release (Dr/Ec) 81 mg PO QAM simvastatin 20 mg tablet 20 mg PO BEDTIME topiramate 100 mg tablet 100 mg PO BID d-mannose 500 mg Capsule 500 mg PO BID Referrals: Neo Alvarado DO [Primary Care Provider] - Coding Level of Care Code ED Hotel [employer] Supervisor for Clarence Medel
--- NOTE | 2023-06-12 11:16 | P.HP_ITS ---
Providers/Chief Complaint 2 Admitting Physician: Gray Gomez MD Primary Care Provider: Neo Alvarado DO Chief Complaint: abnormal labs History of Present Illness Mary Kumar is a 78 year old female called back to the emergency department secondary to positive blood culture for ESBL, noted from an emergency department visit on June 04. She reports for the last several weeks she has had some low back pain, fever up to 103 ?F, chills, and some suprapubic discomfort. She has not had any nausea or vomiting. She has been eating a little bit less. Denies any shortness of breath. Review of Systems 2 General: Reports: 10 or more systems reviewed and unremarkable except in HPI and below Card: Denies: chest pain Resp: Denies: dyspnea GI: Denies: abdominal pain, nausea, vomiting, hematochezia or melena Medications/Allergies Home Medications Medication Instructions Recorded Confirmed Last Taken Type albuterol sulfate 90 mcg/actuation 2 puff inhalation Q6H PRN 11/04/19 06/12/23 Unknown History aerosol inhaler Shortness Of Breath citalopram 40 mg tablet 40 mg PO QAM 11/04/19 06/12/23 06/12/23 History cyanocobalamin (vitamin B-12) 1,000 mcg IM Q30D 11/04/19 06/12/23 05/07/23 History 1,000 mcg/mL injection solution iron,carbonyl 65 mg-vitamin C 125 1 tab PO QAM 11/04/19 06/12/23 06/12/23 History mg tablet,delayed release (Vitron-C) oxycodone 30 mg tablet 30 mg PO Q4H PRN Pain 11/04/19 06/12/23 06/05/23 06:00 History potassium chloride 20 mEq 20 meq PO DAILY PRN WITH LASIX 11/04/19 06/12/23 08/02/22 08:00 History tablet,extended release alendronate 70 mg tablet 70 mg PO Q7D 09/23/20 06/12/23 06/08/23 History cholecalciferol (vitamin D3) 25 25 mcg PO QAM 09/23/20 06/12/23 06/12/23 History mcg (1,000 unit) capsule (Vitamin D3) furosemide 20 mg tablet 20 mg PO DAILY PRN Edema 01/06/21 06/12/23 11/10/22 History aspirin 81 mg tablet,delayed 81 mg PO QAM 03/09/22 06/12/23 06/12/23 History release simvastatin 20 mg tablet 20 mg PO BEDTIME 03/09/22 06/12/23 06/11/23 History topiramate 100 mg tablet 100 mg PO BID 03/09/22 06/12/23 06/12/23 History levothyroxine 150 mcg tablet 150 mcg PO QAM 11/10/22 06/12/23 06/12/23 History pantoprazole 40 mg tablet,delayed 40 mg PO QAM 11/10/22 06/12/23 06/12/23 History release ropinirole 1 mg tablet 1 mg PO BEDTIME 11/10/22 06/12/23 06/11/23 History ondansetron 4 mg disintegrating 4 mg PO Q8H PRN nausea and 05/27/23 06/12/23 06/05/23 Rx tablet vomiting #10 tabs isosorbide mononitrate 30 mg 30 mg PO QAM 06/05/23 06/12/23 06/12/23 History tablet,extended release 24 hr melatonin 10 mg tablet 10 mg PO BEDTIME 06/05/23 06/12/23 06/11/23 History oxybutynin chloride 5 mg 5 mg PO DAILY 06/05/23 06/12/23 6 Months Ago History tablet,extended release 24 hr ~12/04/22 see pharmacy comment d-mannose 500 mg capsule 500 mg PO BID 06/12/23 06/12/23 06/12/23 History Allergies Allergy/AdvReac Type Severity Reaction Status Date / Time No Known Allergies Allergy Verified 06/05/23 10:50 PFSH Acute 2 PFSH: Medical History (Updated 06/12/23 @ 11:42 by Gray Gomez MD) Neuropathy Hyperlipidemia GERD (gastroesophageal reflux disease) Chronic pain Osteoporosis Hypothyroid History of nonmelanoma skin cancer History of nonmelanoma skin cancer Pericardial effusion Hypertension Edema History of breast cancer Surgical History History of back surgery H/O breast reconstruction H/O mastectomy H/O knee surgery H/O: hysterectomy H/O gastric bypass H/O neck surgery Family History (Updated 06/12/23 @ 11:39 by Gray Gomez MD) Other CAD (coronary artery disease) Cancer Social History Smoking and tobacco/nicotine status: never used tobacco/nicotine Alcohol intake: never Substance/Drug Use: never Vitals/I&O/Wt Last Vital Signs Temp 97.8 F 06/12/23 08:36 Pulse 75 06/12/23 08:36 Resp 18 06/12/23 08:36 BP 122/65 06/12/23 08:36 Pulse Ox 96 06/12/23 08:36 O2 Del Method Room Air 06/12/23 08:36 06/11/23 06/12/23 06/12/23 22:59 06:59 14:59 Intake Total 50 / 50 Balance 50 / 50 Weight last 48 hrs Weight 82.1 kg Physical Exam 2 Narrative: General exam is white female, no distress HEENT: Atraumatic normocephalic. Oropharynx clear. Neck is supple no lymphadenopathy thyromegaly Cardiovascular regular rate and rhythm, no murmur Lungs clear Back demonstrates some bilateral CVA tenderness Abdomen some suprapubic pain. No obvious organomegaly exam is deferred Extremities no cyanosis, or edema, cap refill brisk Skin no rash Neuro no obvious focal deficits Data 06/12/23 08:54 06/12/23 08:54 Other Labs: LFTs are normal Urinalysis demonstrates greater than 100 whites, 0-4 reds Albumin and calcium are normal CT abdomen and pelvis on June 04 no obstruction, prior gastric bypass Chest x-ray which I reviewed no infiltrate. Right hemidiaphragm elevation Blood and urine cultures obtained Angiogram August 2022 no significant coronary disease Echo May 2022 preserved EF Micro: Microbiology 06/12/23 08:59 Blood Culture - Preliminary Blood SPECIMEN COLLECTED 06/12/23 08:54 Blood Culture - Preliminary Blood SPECIMEN COLLECTED A&P Assessment and plan (1) Bacteremia: Patient presents with history of bacteremia, with ESBL by blood cultures drawn on June 04. Initiate meropenem Repeat blood and urine cultures obtained Will need 14 days of IV antibiotics, ertapenem. Will want to make sure blood cultures are negative prior to placing PICC. PICC will likely be able to be placed on Saturday and patient discharged then if there are no complications Close follow-up with CBC and BMP No need for further imaging currently (2) Pyelonephritis: Patient with pyelonephritis, complicated UTI with ESBL bacteremia. She is still having fever and chills at home, CVA tenderness, suprapubic tenderness, and was noted to be bacteremic 1 week ago. Plan Multiple other medical problems as outlined by past medical history Attestations 2 Medical Necessity Statement*: Will need greater than 2 midnight stay for evaluation and treatment of bacteremia, with ESBL in this patient with complicated UTI. Diagnoses Bacteremia R78.81 Pyelonephritis N12 Time Spent (min) 45
[2023-06-12] MEDS: ondansetron 2 mg/ML SDV 2 mL 4 MG IVP (13:21)
[2023-06-12 13:38] VITALS: BMI 27.5
[2023-06-12] MEDS: enoxaparin 40 mg/0.4 mL Syringe SUBCUT (13:48)
[2023-06-12 13:53] VITALS: RESP 18
[2023-06-12] MEDS: oxyCODONE IR 30 mg Tablet PO ×2 (13:53→19:18)
[2023-06-12 16:00] VITALS: BP 104/58; PULSE 64; RESP 16; TEMP 36.8; O2SAT 94
[2023-06-12] MEDS: topiramate 100 mg Tablet PO (17:04)
[2023-06-12 19:15] VITALS: BP 113/64; PULSE 60; RESP 16; TEMP 36.5; O2SAT 95
[2023-06-12 19:18] VITALS: RESP 16
[2023-06-12] MEDS: ropinirole 1 mg Tablet PO (21:14)
[2023-06-12] MEDS: trazodone 100 mg Tablet PO (21:15)
[2023-06-12] MEDS: atorvastatin 40 mg Tablet 20 MG PO (21:15)
[2023-06-13] VITALS (10 sets, daily range): BP systolic 96–124; BP diastolic 56–70; PULSE 57–65; RESP 14–16; TEMP 36.3–36.7; O2SAT 94–96
[2023-06-13] MEDS: meropenem 1,000 MG in sodium chloride 0.9% (plus) 50 ML 100 MG IV ×3 (00:34→16:46)
[2023-06-13] MEDS: acetaminophen 325 mg Tablet 650 MG PO (04:31)
[2023-06-13 04:58] LABS: Basophils % 0.4 %; Eosinophils # 0.1 10^3/uL (0.0-0.8); Eosinophils % 2.9 %; Hematocrit 33.7 % (36-47); Lymphocytes # 1.3 10^3/uL (0.8-4.8); Lymphocytes % 28.2 %; Mean Corpuscular HGB Conc 31.5 g/dL (30-55); Mean Corpuscular Hemoglobin 30.5 pg (27-33); Mean Corpuscular Volume 96.8 fl (85-98); Mean Platelet Volume 10.7 fL (7.4-10.4); Monocytes # 0.5 10^3/uL (0.2-0.9); Monocytes % 10.6 %; Neutrophils # 2.58 10^3/uL (1.8-7.7); Neutrophils % 56.8 %; Nucleated Red Blood Cells % 0 %; Platelet Count 233 10^3/cmm (157-399); Red Blood Count 3.48 10^6/uL (3.85-5.65); Red Cell Distribution Width 13.7 % (12.1-15.1); White Blood Count 4.54 10^3/uL (3.29-11.43)
[2023-06-13 05:15] LABS: Alanine Aminotransferase 18 U/L (0-33); Albumin Level 3.2 g/dL (3.5-5.2); Alkaline Phosphatase 72 U/L (35-105); Anion Gap 13.4 (5-19); Aspartate Amino Transferase 16 U/L (0-32); Blood Urea Nitrogen 15 mg/dL (8-23); Calcium 8.8 mg/dL (8.5-10.5); Carbon Dioxide 22 mmol/L (22-29); Chloride 113 mmol/L (98-107); Creatinine Clr Calc Pharmacy 68.4764; Globulin 2.7 g/dL (1.3-4.6); Glucose 141 mg/dL (65-115); Osmolality Calculated 301 mOsm/kg (285-295); Potassium 4.4 mmol/L (3.5-5.1); Sodium 144 mmol/L (136-145); Total Bilirubin 0.2 mg/dL (0.15-1.2); Total Protein 5.9 g/dL (6.6-8.7)
[2023-06-13] MEDS: cetylpyridinium Lozenge 1 EACH MUCOUS MEM (05:16)
[2023-06-13] MEDS: citalopram 20 mg Tablet 40 MG PO (05:16)
[2023-06-13] MEDS: aspirin 81 mg EC Tablet PO (05:17)
[2023-06-13] MEDS: isosorbide mononitrate ER 30 mg Tablet PO (05:17)
[2023-06-13] MEDS: levothyroxine 150 mcg Tablet PO (05:17)
[2023-06-13] MEDS: pantoprazole DR 40 mg Tablet PO (05:17)
[2023-06-13] MEDS: oxyCODONE IR 30 mg Tablet PO ×3 (05:20→20:38)
--- NOTE | 2023-06-13 07:56 | P.PN_ITS ---
Subjective 2 Subjective: Mary reports she has a little bit of nausea this morning. Some chills last night but no fever. He is able to tolerate liquids without difficulty. Medications: Reviewed: Yes Vitals/I&O/Wt Last Vital Signs Temp 97.7 F 06/13/23 07:42 Pulse 64 06/13/23 07:42 Resp 16 06/13/23 07:42 BP 100/56 06/13/23 07:42 Pulse Ox 94 06/13/23 07:42 O2 Del Method Room Air 06/13/23 07:42 06/12/23 06/13/23 06/13/23 22:59 06:59 14:59 Intake Total 50 / 100 50 / 150 Balance 50 / 100 50 / 150 Weight last 48 hrs Weight 85.411 kg Weight 82.1 kg Weight 82.1 kg Physical Exam 2 Narrative: General exam is white female, no distress Neck is supple no lymphadenopathy thyromegaly Cardiovascular regular rate and rhythm, no murmur Lungs clear Back demonstrates some bilateral CVA tenderness Abdomen some suprapubic pain. No obvious organomegaly Extremities no cyanosis, or edema, cap refill brisk Data 06/13/23 04:29 06/13/23 04:29 Other Labs: Cultures pending Micro: Microbiology 06/12/23 08:59 Blood Culture - Preliminary Blood SPECIMEN COLLECTED 06/12/23 08:54 Blood Culture - Preliminary Blood SPECIMEN COLLECTED A&P Assessment and plan (1) Bacteremia: Patient presents with history of bacteremia, with ESBL by blood cultures drawn on June 04. Continue meropenem Await urine and blood cultures Will need 14 days of IV antibiotics, ertapenem. Will want to make sure blood cultures are negative prior to placing PICC. PICC will likely be able to be placed on Saturday and patient discharged then if there are no complications Close follow-up with CBC and BMP No need for further imaging currently Some nausea. IV fluids. Has Zofran as needed (2) Pyelonephritis: Patient with pyelonephritis, complicated UTI with ESBL bacteremia. She is still having fever and chills at home, CVA tenderness, suprapubic tenderness, and was noted to be bacteremic 1 week ago. Plan Multiple other medical problems as outlined by past medical history Attestations 2 Medical Necessity Statement*: Needs continued hospital stay secondary to ESBL UTI with bacteremia. Possible discharge tomorrow with IV antibiotics Diagnoses Bacteremia R78.81 Pyelonephritis N12 Time Spent (min) 23
[2023-06-13] MEDS: ondansetron 2 mg/ML SDV 2 mL 4 MG IVP (08:07)
[2023-06-13] MEDS: topiramate 100 mg Tablet PO ×2 (08:07→18:36)
[2023-06-13] MEDS: sodium chloride 0.9% 1,000 ML 50 ML IV (08:18)
[2023-06-13] MEDS: enoxaparin 40 mg/0.4 mL Syringe SUBCUT (13:20)
--- NOTE | 2023-06-13 14:49 | XR_ITS ---
WS: [id number] Portable AP semiupright chest, 06/13/2023 Clinical Data: Post PICC insertion Comparison: Portable chest, 06/05/2023 Findings: The right PICC line ends at the caval atrial junction. No pneumothorax is seen. Impression: Satisfactory insertion of right PICC line.
--- NOTE | 2023-06-13 16:02 | PICC.NOTE ---
Single lumen PICC placed to right basilic vein. Referred to vascular access nurse for PICC placement due to need for IV antibiotics x 2 weeks. Risks and benefits discussed and informed consent obtained from patient. Right arm assessed with right basilic vein measuring 4.7 mm, straight, and apparent best choice for placement. Using sterile technique and MST, right basilic vein accessed x 1 stick. Mid-arm circumference measured 10 cm from right AC 28 cm. Trimmed cath 40 cm with 1 cm external length noted. CXR shows tip in distal SVC, cavoatrial junction, in good position for use per radiologist. Line secured with stat-lock. Insertion site covered with Biopatch and TSM. Report given to bedside nurseDimple.
[2023-06-13] MEDS: atorvastatin 40 mg Tablet 20 MG PO (20:38)
[2023-06-13] MEDS: trazodone 100 mg Tablet PO (20:39)
[2023-06-13] MEDS: ropinirole 1 mg Tablet PO (20:39)
[2023-06-13] MEDS: sodium chloride 0.9% 1,000 ML 75 ML IV (22:34)
[2023-06-14] VITALS (8 sets, daily range): BP systolic 109–131; BP diastolic 49–65; PULSE 63–71; RESP 16–17; TEMP 36.4–36.8; O2SAT 92–96; BMI 29.3
[2023-06-14] MEDS: oxyCODONE IR 30 mg Tablet PO ×3 (00:43→10:41)
[2023-06-14] MEDS: meropenem 1,000 MG in sodium chloride 0.9% (plus) 50 ML 100 MG IV (00:44)
[2023-06-14 05:02] LABS: Basophils % 0.6 %; Eosinophils # 0.1 10^3/uL (0.0-0.8); Eosinophils % 3.2 %; Hematocrit 32.3 % (36-47); Lymphocytes # 1.1 10^3/uL (0.8-4.8); Lymphocytes % 33.4 %; Mean Corpuscular HGB Conc 32.2 g/dL (30-55); Mean Corpuscular Volume 96.4 fl (85-98); Mean Platelet Volume 10.7 fL (7.4-10.4); Monocytes # 0.4 10^3/uL (0.2-0.9); Monocytes % 11.1 %; Neutrophils # 1.73 10^3/uL (1.8-7.7); Neutrophils % 50.8 %; Nucleated Red Blood Cells % 0 %; Platelet Count 213 10^3/cmm (157-399); Red Blood Count 3.35 10^6/uL (3.85-5.65); Red Cell Distribution Width 13.8 % (12.1-15.1); White Blood Count 3.41 10^3/uL (3.29-11.43)
[2023-06-14 05:23] LABS: Anion Gap 10.6 (5-19); Blood Urea Nitrogen 13 mg/dL (8-23); Calcium 8.9 mg/dL (8.5-10.5); Carbon Dioxide 24 mmol/L (22-29); Chloride 113 mmol/L (98-107); Creatinine Clr Calc Pharmacy 61.5838; Glucose 104 mg/dL (65-115); Osmolality Calculated 296 mOsm/kg (285-295); Potassium 4.6 mmol/L (3.5-5.1); Sodium 143 mmol/L (136-145)
[2023-06-14] MEDS: aspirin 81 mg EC Tablet PO (06:36)
[2023-06-14] MEDS: isosorbide mononitrate ER 30 mg Tablet PO (06:37)
[2023-06-14] MEDS: citalopram 20 mg Tablet 40 MG PO (06:37)
[2023-06-14] MEDS: pantoprazole DR 40 mg Tablet PO (06:37)
[2023-06-14] MEDS: levothyroxine 150 mcg Tablet PO (06:37)
[2023-06-14] MEDS: topiramate 100 mg Tablet PO (09:21)
[2023-06-14] MEDS: ertapenem 1,000 MG in sodium chloride 0.9% (plus) 100 ML 200 MG IV (09:21)
[2023-06-14] MEDS: acetaminophen 325 mg Tablet 650 MG PO (09:26)
--- NOTE | 2023-06-14 09:54 | P.DS_ITS ---
Discharge Providers Date of Admission: 06/12/23 12:20 Date of Discharge: June 14, 2023 Attending Provider at Admission: Gray Gomez MD Attending Provider at Discharge: Gray Gomez MD Primary Care Provider: Neo Alvarado DO Diagnoses at Discharge Discharge Diagnosis (1) Bacteremia: Status: Acute (2) Pyelonephritis: Status: Acute Reason for Visit Reason for Visit: abnormal labs Hospital Course Hospital Course Mary is a 78-year-old white female who presented to the hospital, called back from the ER secondary to a blood culture that was positive for ESBL from June 04. On presentation in June 11 she was having some suprapubic discomfort, chills, nausea. Recent previous CT scan demonstrated no obstruction, or abscess. She was placed on meropenem, repeat cultures of blood and urine were obtained. During her hospital course she remained afebrile. Blood cultures at 48 hours were negative. PICC line was placed. She was instructed, and it was set up to take Invanz 1 g IV daily for 12 more days, 14 days total treatment and balance for her gram-negative bacteremia with ESBL. Patient was given opportunity ask questions, and agreed with the plan. Urine culture from admission was growing gram-negative rods, and I was informed by micro that this was ESBL sensitive to imipenem. Patient's chills, suprapubic discomfort, nausea all significantly improved while in the hospital. On follow-up with patient's primary care provider, consideration for referral to urology secondary to ESBL bacteremia from UTI in this patient with past history of frequent UTIs. Physical Exam Narrative: General exam no distress Neck is supple Cardiovascular regular rate and rhythm without murmur Lungs clear Abdomen is soft, nontender Extremities no sinus clubbing edema Discharge Data Studies Completed and Pending Completed Studies During Hospitalization Category Date Time Status CXRP [XR chest 1V portable 44180] Routine Exams 06/13/23 14:49 Completed Pending at discharge Category Date Time Status Blood Culture Stat Lab 06/12/23 08:59 Results Urine Culture Stat Lab 06/12/23 08:39 Results Laboratory Results WBC 3.41 10^3/uL (3.29-11.43) 06/14/23 04:38 RBC 3.35 10^6/uL (3.85-5.65) L 06/14/23 04:38 Hgb 10.40 g/dL (11.27-16.99) L 06/14/23 04:38 Hct 32.3 % (36-47) L 06/14/23 04:38 MCV 96.4 fl (85-98) 06/14/23 04:38 MCH 31.0 pg (27-33) 06/14/23 04:38 MCHC 32.2 g/dL (30-55) 06/14/23 04:38 RDW 13.8 % (12.1-15.1) 06/14/23 04:38 Plt Count 213 10^3/cmm (157-399) 06/14/23 04:38 MPV 10.7 fL (7.4-10.4) H 06/14/23 04:38 Neut % (Auto) 50.8 % 06/14/23 04:38 Lymph % (Auto) 33.4 % 06/14/23 04:38 [place] % (Auto) 11.1 % 06/14/23 04:38 Eos % (Auto) 3.2 % 06/14/23 04:38 Baso % (Auto) 0.6 % 06/14/23 04:38 Neut # (Auto) 1.73 10^3/uL (1.8-7.7) L 06/14/23 04:38 Lymph # (Auto) 1.1 10^3/uL (0.8-4.8) 06/14/23 04:38 [place] # (Auto) 0.4 10^3/uL (0.2-0.9) 06/14/23 04:38 Eos # (Auto) 0.1 10^3/uL (0.0-0.8) 06/14/23 04:38 Baso # (Auto) 0.0 10^3/uL (0.0-0.1) 06/14/23 04:38 Nucleated RBC % (auto) 0 % 06/14/23 04:38 Nucleated RBCs # 0.0 /100WBC 06/14/23 04:38 Sodium 143 mmol/L (136-145) 06/14/23 04:38 Potassium 4.6 mmol/L (3.5-5.1) 06/14/23 04:38 Chloride 113 mmol/L (98-107) H 06/14/23 04:38 Carbon Dioxide 24 mmol/L (22-29) 04/12/24 04:38 Anion Gap 10.6 (5-19) 06/14/23 04:38 BUN 13 mg/dL (8-23) 06/14/23 04:38 Creatinine 0.9 mg/dL (0.5-0.9) 06/14/23 04:38 GFR Calculation Not Reportable 06/14/23 04:38 Glucose 104 mg/dL (65-115) 06/14/23 04:38 Calculated Osmolality 296 mOsm/kg (285-295) H 06/14/23 04:38 Lactic Acid 0.7 mmol/L (0.5-2.2) 06/12/23 08:54 Calcium 8.9 mg/dL (8.5-10.5) 06/14/23 04:38 Magnesium 2.0 mg/dL (1.7-2.3) 06/13/23 04:29 Total Bilirubin 0.2 mg/dL (0.15-1.2) 06/13/23 04:29 AST 16 U/L (0-32) 06/13/23 04:29 ALT 18 U/L (0-33) 06/13/23 04:29 Alkaline Phosphatase 72 U/L (35-105) 06/13/23 04:29 Total Protein 5.9 g/dL (6.6-8.7) L 06/13/23 04:29 Albumin 3.2 g/dL (3.5-5.2) L 06/13/23 04:29 Globulin 2.7 g/dL (1.3-4.6) 06/13/23 04:29 Urine Color Dark yellow (Yellow) 06/12/23 08:39 Urine Appearance Cloudy (CLEAR) A 06/12/23 08:39 Urine pH 5 (5-7) 06/12/23 08:39 Ur Specific [place] 1.030 (1.005-1.030) 06/12/23 08:39 Urine Protein Neg (Negative) 06/12/23 08:39 Urine Glucose (UA) Norm (Normal) 06/12/23 08:39 Urine Ketones Negative (Negative) 06/12/23 08:39 Urine Blood Neg (Negative) 06/12/23 08:39 Urine Nitrate Negative (Negative) 06/12/23 08:39 Urine Bilirubin 1+ (Negative) H 06/12/23 08:39 Urine Urobilinogen 1 mg/dL (Negative) H 06/12/23 08:39 Ur Leukocyte Esterase 1+ (Negative) H 06/12/23 08:39 Urine RBC 0-4 /hpf (0-2) H 06/12/23 08:39 Urine WBC >100 /hpf (0-5) H 06/12/23 08:39 Ur Squamous Epith Cells 0-4 /hpf (0-5) H 06/12/23 08:39 Ur Transition Epith Cell 0-4 /hpf 06/12/23 08:39 Amorphous Sediment Not Reportable 06/12/23 08:39 Urine Bacteria Trace /hpf (NONE) 06/12/23 08:39 Hyaline Casts 5-10 /lpf H 06/12/23 08:39 Other Casts Waxy cast 0-4 /lpf 06/12/23 08:39 Urine Mucus 1+ /hpf 06/12/23 08:39 Vitals Last Vital Signs Temp 98.3 F 06/14/23 08:00 Pulse 63 06/14/23 08:00 Resp 16 06/14/23 08:00 BP 110/63 06/14/23 08:00 Pulse Ox 95 06/14/23 08:00 O2 Del Method Room Air 06/14/23 08:00 Discharge Plan Discharge Patient Disposition: Home Health Service Condition: Stable Prescriptions: Continued ondansetron 4 mg tablet,disintegrating 4 mg PO Q8H PRN (Reason: nausea and vomiting) Qty: 10 0RF citalopram 40 mg tablet 40 mg PO QAM cyanocobalamin (vitamin B-12) 1,000 mcg/mL solution 1,000 mcg IM Q30D oxycodone 30 mg tablet 30 mg PO Q4H PRN (Reason: Pain) albuterol sulfate 90 mcg/actuation HFA aerosol inhaler 2 puff INHALATION Q6H PRN (Reason: Shortness Of Breath) Vitron-C 65 mg iron- 125 mg Tablet,Delayed Release (Dr/Ec) 1 tab PO QAM potassium chloride 20 mEq Tablet Extended Release 20 meq PO DAILY PRN (Reason: WITH LASIX) furosemide 20 mg tablet 20 mg PO DAILY PRN (Reason: Edema) cholecalciferol (vitamin D3) [Vitamin D3] 25 mcg (1,000 unit) Capsule 25 mcg PO QAM alendronate 70 mg Tablet 70 mg PO Q7D Rx Instructions: on Saturdays ropinirole 1 mg tablet 1 mg PO BEDTIME pantoprazole 40 mg tablet,delayed release (DR/EC) 40 mg PO QAM levothyroxine 150 mcg tablet 150 mcg PO QAM oxybutynin chloride 5 mg tablet extended release 24hr 5 mg PO DAILY melatonin 10 mg Tablet 10 mg PO BEDTIME isosorbide mononitrate 30 mg tablet extended release 24 hr 30 mg PO QAM aspirin 81 mg Tablet,Delayed Release (Dr/Ec) 81 mg PO QAM simvastatin 20 mg tablet 20 mg PO BEDTIME topiramate 100 mg tablet 100 mg PO BID d-mannose 500 mg Capsule 500 mg PO BID Discharge Orders: Discharge Order (Routine); Ordered 06/14/23 Ordered By: Gray Gomez Referrals: [facility] [Outside] [facility] [Outside] (This is the company that is providing your IV medications.) Neo Alvarado DO [Primary Care Provider] - 06/17/23 10:00 am Discharge Diet: Usual diet Discharge Activity: Increase activity as tolerated Patient Instructions: Opioid Safety Activity Restrictions/Additional Instructions: Take all medicine as prescribed 12 more days of Invanz Return for any concerns Discussed with your physician possible urology referral secondary to bacteremia with UTI Discharge Attestations Time Spent in Discharge Care*: greater than 30 min Quality Metrics Clinical Quality Measures [ No reported AMI, CVA or VTE this stay] Coding Level of Care Code 18894 Total time (in minutes) for Discharge: 35 Diagnoses Bacteremia R78.81 Pyelonephritis N12
--- NOTE | 2023-06-14 11:31 | PC.NURSE ---
Discharge delay due to patient awaiting ride.
--- NOTE | 2023-06-14 11:55 | PC.SOCIAL ---
IMM Update pg 2 of IMM updated and reviewed w/ patient. Copy provided and copy dated, initialed and placed in chart.
== END 2023-06-14 12:10 | disposition home health service (06) | DRG 690 ==
LOC: ER 11:41 → MEDSURG 12:20
PROVIDERS: Admitting Provider Internal Medicine; Emergency Provider Family Medicine; PCP Internal Medicine; Visit Provider Internal Medicine
DX: N12 Tubulo-interstitial nephritis, not specified as acute or chronic (principal); R78.81 Bacteremia; Z16.12 Extended spectrum beta lactamase (ESBL) resistance; B96.20 Unspecified Escherichia coli [E. coli] as the cause of diseases classified elsewhere; E03.9 Hypothyroidism, unspecified; K21.9 Gastro-esophageal reflux disease without esophagitis; I10 Essential (primary) hypertension; E78.5 Hyperlipidemia, unspecified
CPT/HCPCS: 36415; 36573; 71045; 80048; 80053; 81001; 83605; 83735; 85025; 87040; 87077; 87086; 87186; 96365; 96372; 99285; J1335; J1650; J2185; J2405; J7030

== ENCOUNTER → 2023-06-20 10:00 | Outpatient (BNVA) | payer MEDICARE, OTHER, SELFPAY | PROVIDERS: PCP Internal Medicine; Visit Provider Podiatrist Foot & Ankle Surgery | DX: L60.3 Nail dystrophy (principal); L84 Corns and callosities; G62.9 Polyneuropathy, unspecified; I73.9 Peripheral vascular disease, unspecified | CPT/HCPCS: 11056; 11721; 99203 ==

== ENCOUNTER 2023-06-21 10:58 | Outpatient (CLI) | payer MEDICARE, OTHER, SELFPAY ==
[2023-06-21 13:09] LABS: Eosinophils # 0.2 10^3/uL (0.0-0.8); Eosinophils % 4.1 %; Hematocrit 37.3 % (36-47); Lymphocytes # 1.5 10^3/uL (0.8-4.8); Lymphocytes % 36.5 %; Mean Corpuscular HGB Conc 33.2 g/dL (30-55); Mean Corpuscular Volume 93.3 fl (85-98); Mean Platelet Volume 13.1 fL (7.4-10.4); Monocytes # 0.3 10^3/uL (0.2-0.9); Monocytes % 7.9 %; Nucleated Red Blood Cells % 0 %; Platelet Count 153 10^3/cmm (157-399); Red Cell Distribution Width 13.6 % (12.1-15.1); White Blood Count 4.19 10^3/uL (3.29-11.43)
[2023-06-21 13:16] LABS: Slide Review Slide Review Perform
[2023-06-21 13:36] LABS: Alanine Aminotransferase 16 U/L (0-33); Albumin Level 4.2 g/dL (3.5-5.2); Alkaline Phosphatase 94 U/L (35-105); Blood Urea Nitrogen 21 mg/dL (8-23); Calcium 9.1 mg/dL (8.5-10.5); Carbon Dioxide 21 mmol/L (22-29); Chloride 108 mmol/L (98-107); Globulin 2.6 g/dL (1.3-4.6); Glucose 77 mg/dL (65-115); Osmolality Calculated 292 mOsm/kg (285-295); Sodium 140 mmol/L (136-145); Total Bilirubin 0.2 mg/dL (0.15-1.2); Total Protein 6.8 g/dL (6.6-8.7)
[2023-06-21 13:49] LABS: Anion Gap 16.1 (5-19); Aspartate Amino Transferase 21 U/L (0-32); Potassium 5.1 mmol/L (3.5-5.1)
== END 2023-06-21 10:59 | disposition home or self-care (01) ==
LOC: LAB 11:00
PROVIDERS: PCP Internal Medicine; Visit Provider Orthopaedic Surgery
DX: I10 Essential (primary) hypertension (principal)
CPT/HCPCS: 80053; 85025

== ENCOUNTER 2023-07-15 13:45 | Outpatient (CLI) | payer MEDICARE, OTHER, SELFPAY ==
[2023-07-15 15:18] LABS: Urine Appearance SL Hazy (CLEAR); Urine Color Yellow (Yellow)
[2023-07-15 15:19] LABS: Add Urine Culture? No; Add Urine Microscopic? YES; Amorphous Sediment Urine 2+ /hpf; Bacteria Urine TRACE /hpf; Bilirubin Urine Neg (Negative); Blood Urine Neg (Negative); Glucose Urine UA Norm (Normal); Ketones Urine 1+ (Negative); Leukocyte Esterase Urine 1+ (Negative); Mucus Urine 2+ /hpf; Nitrate Urine Negative (Negative); Protein Urine Trace (Negative); RBC Urine 0-4 /hpf (0-2); Specific Gravity, Urine 1.015 (1.005-1.030); Urobilinogen Urine 1 mg/dL (Negative); pH Urine 6.5 (5-7)
== END 2023-07-15 13:46 | disposition home or self-care (01) ==
LOC: LAB 13:47
PROVIDERS: PCP Internal Medicine; Visit Provider Orthopaedic Surgery
DX: R30.0 Dysuria (principal)
CPT/HCPCS: 81001

== ENCOUNTER → 2023-08-26 10:53 | Outpatient (BNVA) | payer MEDICARE, OTHER, SELFPAY | PROVIDERS: PCP Internal Medicine; Visit Provider Podiatrist Foot & Ankle Surgery | DX: L60.3 Nail dystrophy (principal); L84 Corns and callosities; G62.9 Polyneuropathy, unspecified; I73.9 Peripheral vascular disease, unspecified | CPT/HCPCS: 11056; 11721 ==

== ENCOUNTER → 2023-09-24 11:02 | Outpatient (BNVA) | payer MEDICARE, OTHER, SELFPAY | PROVIDERS: PCP Internal Medicine; Visit Provider Nurse Practitioner Family | DX: R39.9 Unspecified symptoms and signs involving the genitourinary system (principal) | CPT/HCPCS: 81000 ==

== ENCOUNTER → 2023-10-28 10:50 | Outpatient (BNVA) | payer MEDICARE, OTHER, SELFPAY | PROVIDERS: PCP Internal Medicine; Visit Provider Podiatrist Foot & Ankle Surgery | DX: L60.3 Nail dystrophy (principal); L84 Corns and callosities; G62.9 Polyneuropathy, unspecified; I73.9 Peripheral vascular disease, unspecified | CPT/HCPCS: 11055; 11721 ==

== ENCOUNTER 2023-11-21 09:08 | Emergency (ER) | payer MEDICARE, OTHER, SELFPAY ==
[2023-11-21 09:14] VITALS: BP 141/83; PULSE 73; RESP 18; TEMP 37.6; O2SAT 94
--- NOTE | 2023-11-21 09:16 | XR_ITS ---
WS: [id number] Portable AP upright chest, 11/21/2023 Clinical Data: fever, cough Comparison: Portable chest, 06/13/2023 Findings: No nodules, masses or effusions are seen. The heart is normal. The pulmonary vascularity is not increased. No pneumonia or pneumothorax is seen. There is elevation of the right diaphragm with minimal discoid atelectasis unchanged. The aortic arch and descending thoracic aorta show mild tortuo sity. XR/XR chest 1V portable [id number] Impression: Atherosclerosis.
[2023-11-21 09:43] LABS: Basophils % 0.1 %; Eosinophils % 0.1 %; Hematocrit 37.9 % (36-47); Lymphocytes # 0.7 10^3/uL (0.8-4.8); Lymphocytes % 8.2 %; Mean Corpuscular HGB Conc 33.8 g/dL (30-55); Mean Corpuscular Volume 91.8 fl (85-98); Mean Platelet Volume 11.7 fL (7.4-10.4); Monocytes # 0.5 10^3/uL (0.2-0.9); Monocytes % 5.5 %; Neutrophils # 7.32 10^3/uL (1.8-7.7); Neutrophils % 85.7 %; Nucleated Red Blood Cells % 0 %; Platelet Count 169 10^3/cmm (157-399); Red Blood Count 4.13 10^6/uL (3.85-5.65); Red Cell Distribution Width 14.4 % (12.1-15.1); White Blood Count 8.54 10^3/uL (3.29-11.43)
[2023-11-21 10:02] LABS: Alanine Aminotransferase 24 U/L (0-33); Albumin Level 4.1 g/dL (3.5-5.2); Alkaline Phosphatase 87 U/L (35-105); Anion Gap 18.7 (5-19); Aspartate Amino Transferase 24 U/L (0-32); Blood Urea Nitrogen 14 mg/dL (8-23); C Reactive Protein 19.4 mg/L (0.0-4.9); Calcium 9.2 mg/dL (8.5-10.5); Carbon Dioxide 22 mmol/L (22-29); Chloride 104 mmol/L (98-107); Globulin 2.8 g/dL (1.3-4.6); Glucose 98 mg/dL (65-115); Lactic Sepsis W/Reflex 1.1 mmol/L (0.5-2.2); Osmolality Calculated 292 mOsm/kg (285-295); Potassium 3.7 mmol/L (3.5-5.1); Sodium 141 mmol/L (136-145); Total Bilirubin 0.4 mg/dL (0.15-1.2); Total Protein 6.9 g/dL (6.6-8.7)
[2023-11-21 10:07] LABS: Procalcitonin 0.09 ng/mL (0-0.5)
[2023-11-21] MEDS: ondansetron 2 mg/ML SDV 2 mL 8 MG IVP (10:15)
[2023-11-21] MEDS: sodium chloride 0.9% 1,000 ML 999 ML IV (10:15)
[2023-11-21 10:44] LABS: Influenza A NEGATIVE (Negative); Influenza B NEGATIVE (Negative); Respiratory Syncytial Virus Ce NEGATIVE (Negative)
[2023-11-21 10:47] LABS: Covid PCR Positive (Negative)
--- NOTE | 2023-11-21 10:58 | ED_ITS ---
HPI - General Adult 2 General: Chief complaint: General Medical Stated complaint: covid like symptoms Time Seen by Provider: 11/21/23 09:14 History of Present Illness: 78-year-old female presents emergency ro om by ambulance with COVID symptoms. She says she has not been feeling well for about 10 days but became acutely ill over the last 2 to 3 days. She has had nausea vomiting diarrhea. Cough and shortness of breath. Fevers. No altered mental status. No focal motor deficits. Related Data Home Medications Medication Instructions Recorded Confirmed albuterol sulfate 90 mcg/actuation 2 puff inhalation Q6H PRN 11/04/19 10/28/23 aerosol inhaler Shortness Of Breath citalopram 40 mg tablet 40 mg PO QAM 11/04/19 10/28/23 cyanocobalamin (vitamin B-12) 1,000 mcg IM Q30D 11/04/19 10/28/23 1,000 mcg/mL injection solution iron,carbonyl 65 mg-vitamin C 125 1 tab PO QAM 11/04/19 10/28/23 mg tablet,delayed release (Vitron-C) oxycodone 30 mg tablet 30 mg PO Q4H PRN Pain 11/04/19 10/28/23 potassium chloride 20 mEq 20 meq PO DAILY PRN WITH LASIX 11/04/19 10/28/23 tablet,extended release alendronate 70 mg tablet 70 mg PO Q7D 09/23/20 10/28/23 cholecalciferol (vitamin D3) 25 25 mcg PO QAM 09/23/20 10/28/23 mcg (1,000 unit) capsule (Vitamin D3) furosemide 20 mg tablet 20 mg PO DAILY PRN Edema 01/06/21 10/28/23 aspirin 81 mg tablet,delayed 81 mg PO QAM 03/09/22 10/28/23 release simvastatin 20 mg tablet 20 mg PO BEDTIME 03/09/22 10/28/23 topiramate 100 mg tablet 100 mg PO BID 03/09/22 10/28/23 levothyroxine 150 mcg tablet 150 mcg PO QAM 11/10/22 10/28/23 pantoprazole 40 mg tablet,delayed 40 mg PO QAM 11/10/22 10/28/23 release ropinirole 1 mg tablet 1 mg PO BEDTIME 11/10/22 10/28/23 melatonin 10 mg tablet 10 mg PO BEDTIME 06/05/23 10/28/23 oxybutynin chloride 5 mg 5 mg PO DAILY 06/05/23 10/28/23 tablet,extended release 24 hr d-mannose 500 mg capsule 500 mg PO BID 06/12/23 10/28/23 Previous Rx's Medication Instructions Recorded ondansetron 4 mg disintegrating 4 mg PO Q8H PRN nausea and 05/27/23 tablet vomiting #10 tabs cephalexin 500 mg capsule 500 mg PO BID 7 days #14 caps 09/24/23 isosorbide mononitrate 30 mg See Rx Instructions .Route 11/13/23 tablet,extended release 24 hr .COMPLEX #90 tabs dexamethasone 6 mg tablet 6 mg PO DAILY 5 days #5 tabs 11/21/23 nirmatrelvir 300 mg (150 mg See Rx Instructions PO .COMPLEX 11/21/23 x2)-ritonavir 100 mg tablet,dose #30 ea pack (Paxlovid) ondansetron 8 mg disintegrating 8 mg PO Q6H #14 tabs 11/21/23 tablet Allergies Allergy/AdvReac Type Severity Reaction Status Date / Time No Known Allergies Allergy Verified 10/28/23 10:53 Review of Systems 2 Narrative: Constitutional symptoms: Negative except as documented in HPI. Skin symptoms: Negative except as documented in HPI. Eye symptoms: Negative except as documented in HPI. ENMT symptoms: Negative except as documented in HPI. Respiratory symptoms: Negative except as documented in HPI. Cardiovascular symptoms: Negative except as documented in HPI. Gastrointestinal symptoms: Negative except as documented in HPI. Genitourinary symptoms: Negative except as documented in HPI. Musculoskeletal symptoms: Negative except as documented in HPI. Neurologic symptoms: Negative except as documented in HPI. Psychiatric symptoms: Negative except as documented in HPI. Endocrine symptoms: Negative except as documented in HPI. PFSH ED 2 PFSH: Medical History Neuropathy Hyperlipidemia GERD (gastroesophageal reflux disease) Chronic pain Osteoporosis Hypothyroid History of nonmelanoma skin cancer History of nonmelanoma skin cancer Pericardial effusion Hypertension Edema History of breast cancer Surgical History History of back surgery H/O breast reconstruction H/O mastectomy H/O knee surgery H/O: hysterectomy H/O gastric bypass H/O neck surgery Family History Other CAD (coronary artery disease) Cancer Social History Smoking and tobacco/nicotine status: unknown if used tobacco/nicotine Alcohol intake: never Substance/Drug Use: never Physical Exam 2 Narrative: EXAM NARRATIVE: General: Alert, no acute distress. Skin: Warm, dry. Head: Normocephalic, atraumatic. Neck: Supple, trachea midline. Eye: Extraocular movements are intact. Ears, nose, mouth and throat: Dry oral mucosa Cardiovascular: Regular, Normal peripheral perfusion. Respiratory: Lungs are clear to auscultation, respirations are non-labored, breath sounds are equal, Symmetrical chest wall expansion. Gastrointestinal: Soft, Nontender, Non distended Musculoskeletal: Normal ROM, no deformity. Neurological: Alert and oriented, No focal neurological deficit observed. Psychiatric: Cooperative, appropriate mood & affect. Course 2 Vital Signs: Vital signs: Vital Signs Temperature 99.6 F 11/21/23 09:14 Pulse Rate 73 11/21/23 09:14 Respiratory Rate 18 11/21/23 09:14 Blood Pressure 141/83 11/21/23 09:14 Pulse Oximetry 94 11/21/23 09:14 Oxygen Delivery Me thod Room Air 11/21/23 09:14 MDM - General Adult Medical Decision Making Differential diagnosis for patient with shortness of breath includes but is not limited to and based on the above HPI, review of systems and physical exam: Pneumonia. Bronchitis. Asthma or COPD with acute exacerbation. Acute coronary syndrome / MT. Pulmonary embolism. Anxiety. Congestive heart failure. Viral infections including influenza and Covid-19. Atrial fibrillation. Anxiety. Pleural effusion. Pneumothorax. Orders placed to evaluate differential diagnosis based on the above differential, HPI and physical exam Chest x-ray: No acute process. No infiltrate. No pneumothorax. This was reviewed and interpreted by myself the ER physician. Lab Review: Laboratory results were reviewed and interpreted by myself the emergency room physician. No leukocytosis. No anemia. No renal failure. Patient is COVID-positive. I reviewed the patient's medical record. Reexamination: Patient remained stable. No increased work of breathing. No altered mental status. No focal motor deficits. Assessment and plan: COVID-19 Dehydration ?IV normal saline bolus and IV Zofran in the emergency room - Discharged home - Discussed findings and plan with patient. Answered any questions. - All laboratory values were reviewed and interpreted personally by myself, the ER physician - All imaging was reviewed and interpreted personally by myself, the ER physician. - Evaluation and treatment of this problem were appropriate in the emergency setting Lab Data 11/21/23 09:30 11/21/23 09:30 Radiology Impressions Chest X-Ray 11/21/23 09:16 Impression: Atherosclerosis. Laboratory Results WBC 8.54 10^3/uL (3.29-11.43) 11/21/23 09:30 RBC 4.13 10^6/uL (3.85-5.65) 11/21/23 09:30 Hgb 12.80 g/dL (11.27-16.99) 11/21/23 09:30 Hct 37.9 % (36-47) 11/21/23 09:30 MCV 91.8 fl (85-98) 11/21/23 09:30 MCH 31.0 pg (27-33) 11/21/23 09:30 MCHC 33.8 g/dL (30-55) 11/21/23 09:30 RDW 14.4 % (12.1-15.1) 11/21/23 09:30 Plt Count 169 10^3/cmm (157-399) 11/21/23 09:30 MPV 11.7 fL (7.4-10.4) H 11/21/23 09:30 Neut % (Auto) 85.7 % 11/21/23 09:30 Lymph % (Auto) 8.2 % 11/21/23 09:30 Bartholomew % (Auto) 5.5 % 11/21/23 09:30 Eos % (Auto) 0.1 % 11/21/23 09:30 Baso % (Auto) 0.1 % 11/21/23 09:30 Neut # (Auto) 7.32 10^3/uL (1.8-7.7) 11/21/23 09:30 Lymph # (Auto) 0.7 10^3/uL (0.8-4.8) L 11/21/23 09:30 Bartholomew # (Auto) 0.5 10^3/uL (0.2-0.9) 11/21/23 09:30 Eos # (Auto) 0.0 10^3/uL (0.0-0.8) 11/21/23 09:30 Baso # (Auto) 0.0 10^3/uL (0.0-0.1) 11/21/23 09:30 Nucleated RBC % (auto) 0 % 11/21/23 09:30 Nucleated RBCs # 0.0 /100WBC 11/21/23 09:30 Sodium 141 mmol/L (136-145) 11/21/23 09:30 Potassium 3.7 mmol/L (3.5-5.1) 11/21/23 09:30 Chloride 104 mmol/L (98-107) 11/21/23 09:30 Carbon Dioxide 22 mmol/L (22-29) 11/21/23 09:30 Anion Gap 18.7 (5-19) 11/21/23 09:30 BUN 14 mg/dL (8-23) 11/21/23 09:30 Creatinine 0.9 mg/dL (0.5-0.9) 11/21/23 09:30 GFR Calculation Not Reportable 11/21/23 09:30 Glucose 98 mg/dL (65-115) 11/21/23 09:30 Calculated Osmolality 292 mOsm/kg (285-295) 11/21/23 09:30 Lactic Acid 1.1 mmol/L (0.5-2.2) 11/21/23 09:30 Calcium 9.2 mg/dL (8.5-10.5) 11/21/23 09:30 Total Bilirubin 0.4 mg/dL (0.15-1.2) 11/21/23 09:30 AST 24 U/L (0-32) 11/21/23 09:30 ALT 24 U/L (0-33) 11/21/23 09:30 Alkaline Phosphatase 87 U/L (35-105) 11/21/23 09:30 C-Reactive Protein 19.4 mg/L (0.0-4.9) H 11/21/23 09:30 Total Protein 6.9 g/dL (6.6-8.7) 11/21/23 09:30 Albumin 4.1 g/dL (3.5-5.2) 11/21/23 09:30 Globulin 2.8 g/dL (1.3-4.6) 11/21/23 09:30 Procalcitonin 0.09 ng/mL (0-0.5) 11/21/23 09:30 Coronavirus (PCR) Positive (Negative) A 11/21/23 09:40 Influenza A (PCR) Negative (Negative) 11/21/23 09:40 Influenza Type B (PCR) Negative (Negative) 11/21/23 09:40 RSV (PCR) Negative (Negative) 11/21/23 09:40 All radiology interpretation(s) finalized by discharge Discharge Plan Discharge Patient Disposition: Home Clinical Impression: COVID-19 Condition: Stable Prescriptions: New dexamethasone 6 mg tablet 6 mg PO DAILY 5 Days Qty: 5 0RF ondansetron 8 mg tablet,disintegrating 8 mg PO Q6H Qty: 14 0RF Rx Instructions: Take 1/2-1 tab every 6 hours as needed for nausea and vomiting Paxlovid 300 mg (150 mg x 2)-100 mg tablets,dose pack See Rx Instructions .ROUTE .COMPLEX Qty: 30 0RF Rx Instructions: take TWO 150 mg tablets of nirmatrelvir with ONE 100 mg tablet of ritonavir twice daily for 5 days No Action ondansetron 4 mg tablet,disintegrating 4 mg PO Q8H PRN (Reason: nausea and vomiting) Qty: 10 0RF cephalexin 500 mg capsule 500 mg PO BID 7 Days Qty: 14 0RF isosorbide mononitrate 30 mg tablet extended release 24 hr See Rx Instructions .ROUTE .COMPLEX Qty: 90 3RF Dose Instruction: TAKE 1 TABLET EVERY DAY Rx Instructions: TAKE 1 TABLET EVERY DAY citalopram 40 mg tablet 40 mg PO QAM cyanocobalamin (vitamin B-12) 1,000 mcg/mL solution 1,000 mcg IM Q30D oxycodone 30 mg tablet 30 mg PO Q4H PRN (Reason: Pain) albuterol sulfate 90 mcg/actuation HFA aerosol inhaler 2 puff INHALATION Q6H PRN (Reason: Shortness Of Breath) Vitron-C 65 mg iron- 125 mg Tablet,Delayed Release (Dr/Ec) 1 tab PO QAM potassium chloride 20 mEq Tablet Extended Release 20 meq PO DAILY PRN (Reason: WITH LASIX) furosemide 20 mg tablet 20 mg PO DAILY PRN (Reason: Edema) cholecalciferol (vitamin D3) [Vitamin D3] 25 mcg (1,000 unit) Capsule 25 mcg PO QAM alendronate 70 mg Tablet 70 mg PO Q7D Rx Instructions: on Saturdays ropinirole 1 mg tablet 1 mg PO BEDTIME pantoprazole 40 mg tablet,delayed release (DR/EC) 40 mg PO QAM levothyroxine 150 mcg tablet 150 mcg PO QAM oxybutynin chloride 5 mg tablet extended release 24hr 5 mg PO DAILY melatonin 10 mg Tablet 10 mg PO BEDTIME aspirin 81 mg Tablet,Delayed Release (Dr/Ec) 81 mg PO QAM simvastatin 20 mg tablet 20 mg PO BEDTIME topiramate 100 mg tablet 100 mg PO BID d-mannose 500 mg Capsule 500 mg PO BID Discharge Orders: Discharge ED (Routine); Ordered 11/21/23 Ordered By: Gracie Vela Referrals: Neo Alvarado DO [Primary Care Provider] - Discharge Diet: Usual diet Discharge Activity: Increase activity as tolerated Patient Instructions: How to Recover from COVID-19 at Home (ED) Activity Restrictions/Additional Instructions: Please hold your simvastatin while you are taking Paxlovid. Thank you for choosing [facility] for your healthcare needs today. Please realize this is an emergency room and that we are providing you with a medical screening exam and this may not be complete and all inclusive of all the testing and or work up that you may need to determine your ailment or severity of your illness. You have been screened and evaluated and felt safe for discharge. Health conditions do change or evolve sometimes and as such it is important that you follow up with your Primary Doctor to be re checked, 3-5 days is a general good time frame for follow up. 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
[2023-11-21] MEDS: dexamethasone 10 mg/mL INJ IVP (11:22)
[2023-11-21 11:23] VITALS: BP 138/71; PULSE 82; PULSE 86; RESP 18; O2SAT 98
== END 2023-11-21 11:24 | disposition home or self-care (01) ==
PROVIDERS: Emergency Provider Emergency Medicine; PCP Internal Medicine
DX: U07.1 COVID-19 (principal); Z79.82 Long term (current) use of aspirin; E78.5 Hyperlipidemia, unspecified; I10 Essential (primary) hypertension; Z85.3 Personal history of malignant neoplasm of breast
CPT/HCPCS: 0241U; 71045; 80053; 83605; 84145; 85025; 86140; 96361; 96374; 96375; 99284; J1100; J2405; J7030

== ENCOUNTER → 2023-12-06 10:11 | Outpatient (BNVA) | payer MEDICARE, OTHER, SELFPAY | PROVIDERS: PCP Internal Medicine; Visit Provider Nurse Practitioner Family | DX: L81.5 Leukoderma, not elsewhere classified (principal); L57.8 Other skin changes due to chronic exposure to nonionizing radiation; D22.5 Melanocytic nevi of trunk; L57.0 Actinic keratosis; L81.4 Other melanin hyperpigmentation; Z85.828 Personal history of other malignant neoplasm of skin | CPT/HCPCS: 17000; 99213 ==

== ENCOUNTER → 2023-12-30 10:48 | Outpatient (BNVA) | payer MEDICARE, OTHER, SELFPAY | PROVIDERS: PCP Internal Medicine; Visit Provider Podiatrist Foot & Ankle Surgery | DX: L60.3 Nail dystrophy (principal); L84 Corns and callosities; G62.9 Polyneuropathy, unspecified; I73.9 Peripheral vascular disease, unspecified | CPT/HCPCS: 11721 ==

== ENCOUNTER → 2024-03-05 10:24 | Outpatient (BNVA) | payer MEDICARE, OTHER, SELFPAY | PROVIDERS: PCP Internal Medicine; Visit Provider Podiatrist Foot & Ankle Surgery | DX: I73.9 Peripheral vascular disease, unspecified (principal); L60.3 Nail dystrophy; L84 Corns and callosities; G62.9 Polyneuropathy, unspecified | CPT/HCPCS: 11721 ==

== ENCOUNTER 2024-03-12 09:24 | Outpatient (CLI) | payer MEDICARE, OTHER, SELFPAY ==
--- NOTE | 2024-03-12 09:45 | USCV_ITS ---
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
== END 2024-03-12 09:25 | disposition home or self-care (01) ==
PROVIDERS: PCP Internal Medicine; Visit Provider Podiatrist Foot & Ankle Surgery
DX: I73.9 Peripheral vascular disease, unspecified (principal)
CPT/HCPCS: 93923

== ENCOUNTER → 2024-03-30 09:32 | Outpatient (BNVA) | payer MEDICARE, OTHER, SELFPAY | PROVIDERS: PCP Internal Medicine; Visit Provider Nurse Practitioner Family | DX: L57.8 Other skin changes due to chronic exposure to nonionizing radiation (principal); D22.5 Melanocytic nevi of trunk; L81.4 Other melanin hyperpigmentation; Z08 Encounter for follow-up examination after completed treatment for malignant neoplasm; Z85.828 Personal history of other malignant neoplasm of skin; L82.0 Inflamed seborrheic keratosis; L53.8 Other specified erythematous conditions; L29.89 Other pruritus; R20.8 Other disturbances of skin sensation; L57.0 Actinic keratosis | CPT/HCPCS: 17000; 17110; 99213 ==

== ENCOUNTER → 2024-05-08 12:38 | Outpatient (BNVA) | payer MEDICARE, OTHER, SELFPAY | PROVIDERS: PCP Internal Medicine; Visit Provider Family Medicine | DX: R39.9 Unspecified symptoms and signs involving the genitourinary system (principal); N12 Tubulo-interstitial nephritis, not specified as acute or chronic; N39.0 Urinary tract infection, site not specified | CPT/HCPCS: 81000; 87086 ==

== ENCOUNTER → 2024-05-14 12:46 | Outpatient (BNVA) | payer MEDICARE, OTHER, SELFPAY | PROVIDERS: PCP Internal Medicine; Visit Provider Internal Medicine | DX: R07.89 Other chest pain (principal); I10 Essential (primary) hypertension; R94.31 Abnormal electrocardiogram [ECG] [EKG]; Z85.3 Personal history of malignant neoplasm of breast | CPT/HCPCS: 99213 ==

== ENCOUNTER → 2024-05-19 09:56 | Outpatient (BNVA) | payer MEDICARE, OTHER, SELFPAY | PROVIDERS: PCP Internal Medicine; Visit Provider Podiatrist Foot & Ankle Surgery | DX: I73.9 Peripheral vascular disease, unspecified (principal); L60.3 Nail dystrophy; L84 Corns and callosities; G62.9 Polyneuropathy, unspecified | CPT/HCPCS: 11056; 11721 ==

== ENCOUNTER → 2024-07-21 10:37 | Outpatient (BNVA) | payer MEDICARE, OTHER, SELFPAY | PROVIDERS: PCP Internal Medicine; Visit Provider Podiatrist Foot & Ankle Surgery | DX: I73.9 Peripheral vascular disease, unspecified (principal); L60.3 Nail dystrophy; L84 Corns and callosities; G62.9 Polyneuropathy, unspecified; R60.9 Edema, unspecified | CPT/HCPCS: 11056; 11721; 99214 ==

== ENCOUNTER → 2024-09-30 10:41 | Outpatient (BNVA) | payer MEDICARE, OTHER, SELFPAY | PROVIDERS: PCP Internal Medicine; Visit Provider Podiatrist Foot & Ankle Surgery | DX: I73.9 Peripheral vascular disease, unspecified (principal); L60.3 Nail dystrophy; L84 Corns and callosities; G62.9 Polyneuropathy, unspecified; R60.9 Edema, unspecified | CPT/HCPCS: 11721 ==

== ENCOUNTER → 2024-10-15 08:21 | Outpatient (BNVA) | payer MEDICARE, OTHER, SELFPAY | PROVIDERS: PCP Internal Medicine; Visit Provider Nurse Practitioner Family | DX: L81.4 Other melanin hyperpigmentation (principal); L57.8 Other skin changes due to chronic exposure to nonionizing radiation; D22.5 Melanocytic nevi of trunk; D48.5 Neoplasm of uncertain behavior of skin; L57.0 Actinic keratosis | CPT/HCPCS: 11102; 17000; 99213 ==

== ENCOUNTER → 2024-12-09 08:44 | Outpatient (BNVA) | payer MEDICARE, SELFPAY | PROVIDERS: PCP Internal Medicine; Visit Provider Podiatrist Foot & Ankle Surgery | DX: I73.9 Peripheral vascular disease, unspecified (principal); L60.3 Nail dystrophy; L84 Corns and callosities; G62.9 Polyneuropathy, unspecified; R60.9 Edema, unspecified | CPT/HCPCS: 11721; 99213 ==

== ENCOUNTER → 2025-02-11 10:56 | Outpatient (BNVA) | payer MEDICARE, OTHER, SELFPAY | PROVIDERS: PCP Internal Medicine; Visit Provider Podiatrist Foot & Ankle Surgery | DX: M10.9 Gout, unspecified (principal) | CPT/HCPCS: 36415; 84550 ==